=== PATIENT | female | born 1990 | race Caucasian/White ===

== ENCOUNTER 2016-07-14 09:43 | Inpatient (IN) | payer OTHER ==
[2016-07-14] MEDS ORDERED: RINGERS SOLUTION,LACTATED 300 ML IV ONE (18:32)
[2016-07-14 19:09] LABS: APPEARANCE,URINE SLIGHTLY-CLOUDY; BILIRUBIN,URINE NEGATIVE (NEGATIVE); GLUCOSE, URINE NEGATIVE (NEGATIVE); KETONES,URINE TRACE mg/dL (NEGATIVE); LEUKOCYTE ESTERASE,URINE NEGATIVE (NEGATIVE); NITRITE,URINE NEGATIVE (NEGATIVE); PROTEIN,URINE 30 mg/dL (NEGATIVE); URINE SPECIFIC GRAVITY 1.012; UROBILINOGEN,URINE NEGATIVE mg/dL (<2.0)
[2016-07-14 19:23] LABS: ABSOLUTE EOSINOPHILS # (AUTO) 0.1 10^3/uL (0.0-0.6); ABSOLUTE LYMPHOCYTES (AUTO) 3.4 10^3/uL (0.5-4.7); ABSOLUTE MONOCYTES (AUTO) 1.1 10^3/uL (0.1-1.4); BASOPHILS % (AUTO) 0.4 % (0-2); EOSINOPHILS % (AUTO) 0.5 % (0-6); HEMATOCRIT 33.5 % (36.0-47.0); HEMOGLOBIN 11.1 g/dL (12.0-15.5); HGB HCT DIFFERENCE -0.2; MEAN CORPUSCULAR HEMOGLOBIN 26.3 pg (27.0-33.4); MEAN CORPUSCULAR HGB CONC 33.2 g/dL (32.0-36.0); MEAN CORPUSCULAR VOLUME 79 fl (80-97); MONOCYTES % (AUTO) 7.9 % (3-13); RED BLOOD COUNT 4.23 10^6/uL (3.72-5.28); SEGMENTED NEUTROPHILS % (AUTO) 66.2 % (42-78); WHITE BLOOD COUNT 13.6 10^3/uL (4.0-10.5)
[2016-07-14 19:28] LABS: URINE BARBITURATES SCREEN NEGATIVE; URINE METHADONE SCREEN NEGATIVE; URINE OPIATES LOW NEGATIVE; URINE PHENCYCLIDINE SCREEN NEGATIVE
[2016-07-14] MEDS ORDERED: MISOPROSTOL 0.1 MG TABLET ONE ×2 (20:08→21:32)
[2016-07-14] MEDS ORDERED: DINOPROSTONE 10 MG VAGINAL INSERT.SR ONE ×2 (20:08→21:33)
[2016-07-14] MEDS: DINOPROSTONE 10 MG VAGINAL INSERT.SR PV PRN (21:30)
[2016-07-15] MEDS: DINOPROSTONE 10 MG VAGINAL INSERT.SR PV PRN ×2 (00:03→00:04)
[2016-07-15] MEDS: RINGERS SOLUTION,LACTATED 1,000 ML IV PRN ×2 (01:59→02:01)
[2016-07-15] MEDS ORDERED: ZOLPIDEM TARTRATE 5 MG TABLET ONE (03:14)
--- NOTE | 2016-07-15 08:01 | L&D Flow Sheet ---
LD Flowsheet Datetime Report Generated by CPN: 07/15/2016 08:00 Datetime: 07/15/2016 07:55 NBP Sys/Venus/Mean (mmHg): 133 (QS system process) : 76 (QS system process) : 96 (QS system process) Pulse: 103 (QS system process) LaborFlag: Labor (QS system process) Datetime: 07/15/2016 06:57 Monitor Mode: External (Kentrell Augustine RN) Frequency (min): 1.5-2 (Kentrell Fawn, RN) Quality: Mild/Moderate (Kentrell Augustine, RN) Resting Tone (Palpate): Relaxed (Kentrell Augustine, RN) Datetime: 07/15/2016 06:41 I/O Interventions: Up to BR (Kentrell Fawn, RN) Datetime: 07/15/2016 06:30 Monitor Mode: External (Kentrell Augustine, RN) Frequency (min): 2-7.5 (Kentrell Augustine, RN) Quality: Mild/Moderate (Kentrell Augustine, RN) Duration (sec): 60-80 (Kentrell Augustine, RN) Resting Tone (Palpate): Relaxed (Kentrell Fawn, RN) Contraction Comments: Moderate variability (Kentrell Fawn, RN) Datetime: 07/15/2016 06:00 Monitor Mode: External (Kentrell Fawn, RN) Frequency (min): 1.5-3 (Kentrell Fawn, RN) Quality: Mild/Moderate (Kentrell Fawn, RN) Duration (sec): 1.5-3 (Kentrell Fawn, RN) Resting Tone (Palpate): Relaxed (Kentrell Fawn, RN) Datetime: 07/15/2016 05:30 Monitor Mode: External (Kentrell Fawn, RN) Frequency (min): None (Kentrell Fawn, RN) Resting Tone (Palpate): Relaxed (Kentrell Fawn, RN) Datetime: 07/15/2016 05:00 Monitor Mode: External (Kentrell Fawn, RN) Frequency (min): x2 (Kentrell Fawn, RN) Quality: Mild/Moderate (Kentrell Fawn, RN) Resting Tone (Palpate): Relaxed (Kentrell Fawn, RN) Contraction Comments: Irritability noted (Kentrell Fawn, RN) Datetime: 07/15/2016 04:30 Monitor Mode: External (Kentrell Fawn, RN) Frequency (min): 1.5-4 (Kentrell Fawn, RN) Quality: Mild/Moderate (Kentrell Fawn, RN) Duration (sec): 60-90 (Kentrell Fawn, RN) Resting Tone (Palpate): Relaxed (Kentrell Fawn, RN) Datetime: 07/15/2016 04:00 Monitor Mode: External (Kentrell Fawn, RN) Frequency (min): 1-7.5 (Kentrell Fawn, RN) Quality: Mild/Moderate (Kentrell Fawn, RN) Duration (sec): 60-80 (Kentrell Fawn, RN) Resting Tone (Palpate): Relaxed (Kentrell Fawn, RN) Datetime: 07/15/2016 03:30 Monitor Mode: External (Kentrell Augustine, RN) Frequency (min): 1.5 (Kentrell Augustine, RN) Quality: Mild (Kentrell Mijaresford, RN) Duration (sec): 60-80 (Kentrell Mijaresford, RN) Resting Tone (Palpate): Relaxed (Kentrell Augustine, RN) Datetime: 07/15/2016 03:15 I/O Interventions: Up to BR (Kentrell Augustine, RN) Datetime: 07/15/2016 03:14 Analgesics/Sedatives: Ambien (mg) @ 10 (Kentrell Augustine, RN) Datetime: 07/15/2016 03:00 Monitor Mode: External (Kentrell Fawn, RN) Frequency (min): 2-3.5 (Kentrell Fawn, RN) Quality: Mild (Kentrell Fawn, RN) Duration (sec): 70-80 (Kentrell Fawn, RN) Duration Criteria: Less than Two 120 Second Contractions (Kentrell Fawn, RN) Resting Tone (Palpate): Relaxed (Kentrell Fawn, RN) Datetime: 07/15/2016 02:30 Monitor Mode: External (Kentrell Fawn, RN) Frequency (min): 2-4 (Kentrell Fawn, RN) Quality: Mild (Kentrell Fawn, RN) Duration (sec): 40-90 (Kentrell Fawn, RN) Resting Tone (Palpate): Relaxed (Kentrell Fawn, RN) Datetime: 07/15/2016 02:01 IV/Blood Work: IV Infusing per Order; New IV Bag Hung (Kentrell Fawn, RN) Datetime: 07/15/2016 02:00 Monitor Mode: External (Kentrell Fawn, RN) Frequency (min): x2 (Kentrell Fawn, RN) Quality: Mild (Kentrell Fawn, RN) Resting Tone (Palpate): Relaxed (Kentrell Fawn, RN) Contraction Comments: Irritability present (Kentrell Fawn, RN) Datetime: 07/15/2016 01:30 Monitor Mode: External (Kentrell Fawn, RN) Frequency (min): x1 (Kentrell Fawn, RN) Quality: Mild (Kentrell Fawn, RN) Pattern: Normal: <= 5 Contractions in 10 Minutes (Kentrell Fawn, RN) Resting Tone (Palpate): Relaxed (Kentrell Fawn, RN) Datetime: 07/15/2016 01:11 I/O Interventions: Up to BR (Kentrell Fawn, RN) Datetime: 07/15/2016 01:00 Monitor Mode: External (Kentrell Fawn, RN) Frequency (min): Irritability present (Kentrell Fawn, RN) Quality: Mild (Kentrell Fawn, RN) Resting Tone (Palpate): Relaxed (Kentrell Fawn, RN) Datetime: 07/15/2016 00:30 Monitor Mode: External (Kentrell Fawn, RN) Frequency (min): x2 (Kentrell Fawn, RN) Quality: Mild (Kentrell Fawn, RN) Resting Tone (Palpate): Relaxed (Kentrell Fawn, RN) Datetime: 07/15/2016 00:00 Monitor Mode: External (Kentrell Fawn, RN) Frequency (min): x1 (Kentrell Fawn, RN) Quality: Mild (Kentrell Fawn, RN) Resting Tone (Palpate): Relaxed (Kentrell Fawn, RN) Datetime: 07/14/2016 23:30 Monitor Mode: External (Kentrell Fawn, RN) Frequency (min): x1 (Kentrell Fawn, RN) Datetime: 07/14/2016 23:00 Monitor Mode: External (Kentrell Fawn, RN) Frequency (min): None (Kentrell Fawn, RN) Resting Tone (Palpate): Relaxed (Kentrell Fawn, RN) Datetime: 07/14/2016 22:30 Monitor Mode: External (Kentrell Fawn, RN) Monitor Interventions for UA: [place]ott Adjusted (Kentrell Fawn, RN) Frequency (min): None (Kentrell Fawn, RN) Quality: Mild (Kentrell Fawn, RN) Resting Tone (Palpate): Relaxed (Kentrell Fawn, RN) Datetime: 07/14/2016 22:00 Monitor Mode: External; Palpation (Kentrell Fawn, RN) Frequency (min): Unable to determine (Kentrell Fawn, RN) Quality: Mild (Kentrell Fawn, RN) Resting Tone (Palpate): Relaxed (Kentrell Fawn, RN) Datetime: 07/14/2016 21:29 Monitor Mode: External; Palpation (Kentrell Fawn, RN) Frequency (min): x1 (Kentrell Fawn, RN) Quality: Mild (Kentrell Fawn, RN) Pattern: Normal: <= 5 Contractions in 10 Minutes (Kentrell Fawn, RN) Resting Tone (Palpate): Relaxed (Kentrell Fawn, RN) Datetime: 07/14/2016 21:01 Monitor Mode: External (Kentrell Fawn, RN) Frequency (min): x1 (Kentrell Fawn, RN) Quality: Mild (Kentrell Fawn, RN) Resting Tone (Palpate): Relaxed (Kentrell Fawn, RN) Datetime: 07/14/2016 20:30 Cervical Ripening Agents: Cervidil (Josephine Lattibeaudeir, RN) Datetime: 07/14/2016 20:29 Contraction Comments: toco applied (Josephine Lattibeaudeir, RN) Datetime: 07/14/2016 20:25 Dilatation (cm): 1.0 (Josephine Lattibeaudeir, RN) Exam by: C. Eller, CNM (Josephine Lattibeaudeir, RN) Datetime: 07/14/2016 20:19 Procedures: Bedside Ultrasound Done (Josephine Christensen RN) Patient Care Comments: Ultrasound shows no FHTs. (Josephine Christensen RN) Datetime: 07/14/2016 20:08 Communication: Provider at Bedside (Josephine Christensen RN) Provider Notified (Name): Jude Eller CNM at bedside discussing POC and induction options. Pain management options discussed. (Josephine Christensen RN)
[2016-07-15] MEDS ORDERED: PROMETHAZINE HCL INJ 25 MG/1 ML VIAL IV ONE ×2 (08:21→09:00)
[2016-07-15] MEDS ORDERED: NALBUPHINE HCL INJ 10 MG/1 ML AMPULE ONE ×3 (08:21→14:01)
[2016-07-15] MEDS ORDERED: NALBUPHINE HCL INJ 10 MG/1 ML AMPULE INJ ONE ×2 (08:23→09:00)
[2016-07-15] MEDS ORDERED: OXYTOCIN/NORMAL SALINE 20 UNIT/1,000 ML RTUINJ ONE ×2 (09:03→18:55)
[2016-07-15] MEDS ORDERED: ONDANSETRON HCL INJ/PF 4 MG/2 ML SDV ONE (13:41)
[2016-07-15] MEDS ORDERED: FENTANYL CITRATE INJ/PF 100 MCG/2 ML AMPUL ONE ×3 (15:34→17:28)
[2016-07-15] MEDS ORDERED: BUPIVACAINE HCL 0.25 % INJ/PF (2.5 MG/1 ML) 30 ML VIAL ONE (16:18)
[2016-07-15] MEDS ORDERED: EPHEDRINE SULFATE INJ 50 MG/1 ML AMPULE ONE (16:18)
[2016-07-15] MEDS ORDERED: FENTANYL/BUPIVACAINE/NS/PF 200 MCG/100 ML RTUINJ EPI ONE (16:18)
[2016-07-15] MEDS ORDERED: PHENYLEPHRINE HCL INJ/PF 10 MG/1 ML SDV ONE (16:18)
[2016-07-15] MEDS ORDERED: MISOPROSTOL 0.2 MG TABLET ONE (17:25)
[2016-07-15] MEDS ORDERED: LIDOCAINE 1% INJ-PF (10 MG/ML) 30 ML SDV ONE (17:25)
--- NOTE | 2016-07-15 18:02 | L&D General Admission ---
General Admit Datetime Report Generated by CPN: 07/15/2016 18:00 INFORMATION Patient Age: 25 (06/12/2016 15:08:QS system process) EDC: 07/24/2016 00:00 (07/14/2016 18:57:SAW Mclain) : 2 (07/14/2016 18:57:SAW Mclain) Para: 0 (07/14/2016 18:57:SAW Mclain) Term: 0 (07/14/2016 18:57:SAW Mclain) : 0 (07/14/2016 18:57:SAW Mclain) Spontaneous Abortions: 1 (07/14/2016 18:57:SAW Mclain) Induced Abortions: 0 (07/14/2016 18:57:SAW Mclain) Livin (07/14/2016 18:57:SAW Mclain) Cesareans: 0 (07/14/2016 18:57:SAW Mclain) VBACs: 0 (07/14/2016 18:57:SAW Mclain) Ectopic: 0 (07/14/2016 18:57:SAW Mclain) Multiple Births: 0 (07/14/2016 18:57:SAW Mclain) Baby, Number in Womb: 1 (07/14/2016 18:57:SAW Mclain) CARE Primary Welding Pantograph Operator: [facility] (07/14/2016 18:57:SAW Mclain) Adequate Care: Yes (07/14/2016 18:57:SAW Mclain) Prepregnancy Weight (lb): 155 (07/14/2016 18:57:SAW Mclain) Prepregnancy Weight (kg): 70.5 (07/14/2016 18:57:QS system process) Height (in): 68 (07/14/2016 21:01:QS system process) ALLERGIES Medication Allergy: Yes (07/14/2016 18:57:SAW Mclain) Medication Allergies: penicillin G (07/14/2016); latex (07/14/2016) (07/14/2016 18:59:QS system process) Latex Allergy: Latex Allergies (07/14/2016 18:57:Mariah Rodriguez RN) COMMUNICATION Primary Language: Yi (07/14/2016 18:57:SAW Mclain) DEMOGRAPHICS Address: [facility] [place] [address] (07/14/2016 10:39:QS system process) Zipcode: [address] (06/12/2016 15:08:QS system process) Home (06/12/2016 15:08:QS system process) SSN: [id number] (06/12/2016 15:08:QS system process) Next of Kin Name: CHOLO MENA (06/12/2016 15:08:QS system process) Next of Kin (06/12/2016 15:08:QS system process) Next of Kin Relationship: SPO (06/12/2016 15:08:QS system process) Date of : 1990 (06/12/2016 15:08:QS system process) Marital Status: (06/12/2016 15:08:QS system process) Sex: Female (06/12/2016 15:08:QS system process) Race: (06/12/2016 15:08:QS system process) Ethnicity: Non- or (06/12/2016 15:08:QS system process) Yazidism: None (06/12/2016 15:08:QS system process) LABS Blood Type: AB Positive (07/14/2016 18:57:Vero Oh RN) Antibody Screen: negative (07/14/2016 18:57:Vero Oh RN) Hemoglobin: 11.1 L (07/14/2016 19:09:QS system process) Hematocrit: 33.5 L (07/14/2016 19:09:QS system process) MCV: 79 L (07/14/2016 19:09:QS system process) Group Beta Strep: negative (07/14/2016 18:57:Vero Oh RN) Gonorrhea: Negative (07/14/2016 18:57:Vero Oh RN) Chlamydia: Negative (07/14/2016 18:57:Vero Oh RN) RPR/VDRL: Nonreactive (07/14/2016 18:57:Vero Oh RN) HIV Exposure Test: Negative (07/14/2016 18:57:Vero Oh RN) Hepatitis B: Negative (07/14/2016 18:57:Vero Oh RN) Rubella: Immune (07/14/2016 18:57:Vero Oh RN)
--- NOTE | 2016-07-15 18:02 | L&D Current Admission ---
Current Admit Datetime Report Generated by CPN: 07/15/2016 18:00 ADMISSION INFORMATION Chief Complaint: IUFD (07/14/2016 19:30:Kentrell Augustine RN)
--- NOTE | 2016-07-15 18:27 | L&D General Admission ---
General Admit Datetime Report Generated by CPN: 07/15/2016 18:27 INFORMATION Patient Age: 25 (06/12/2016 15:08:QS system process) DEMOGRAPHICS Address: [address] [place] [address] (07/14/2016 10:39:QS system process) Address: [address] [place] [address] (06/12/2016 15:08:QS system process) Zipcode: [address] (06/12/2016 15:08:QS system process) Home (06/12/2016 15:08:QS system process) SSN: [id number] (06/12/2016 15:08:QS system process) Next of Kin Name: CHOLO MENA (06/12/2016 15:08:QS system process) Next of Kin (06/12/2016 15:08:QS system process) Next of Kin Relationship: SPO (06/12/2016 15:08:QS system process) Date of : 1990 (06/12/2016 15:08:QS system process) Marital Status: (06/12/2016 15:08:QS system process) Sex: Female (06/12/2016 15:08:QS system process) Race: (06/12/2016 15:08:QS system process) Ethnicity: Non- or (06/12/2016 15:08:QS system process) Latter Day: None (06/12/2016 15:08:QS system process)
--- NOTE | 2016-07-15 18:28 | L&D Discharge Summary ---
OB Discharge Summary Datetime Report Generated by CPN: 07/15/2016 18:28 DISCHARGE DIAGNOSIS Gestation: 38.5 Number of Babies in Womb: 1 Parity: 0
--- NOTE | 2016-07-15 18:28 | L&D Flow Sheet ---
LD Flowsheet Datetime Report Generated by CPN: 07/15/2016 18:27 Datetime: 07/14/2016 10:50 Communication Additional Nursing Comments: Pt physically left L_D ambulatory in stable condition with at side, with no needs or complaints, and with order to return to L_D when ready and prepared for IOL. (Mariah Michael, RNC) Datetime: 07/14/2016 10:15 Communication Additional Nursing Comments: Pt and informed RN and CNM the desire to go home. Order for d/c home received from J Juarez CNM. (Mariah Michael, RNC) Datetime: 07/14/2016 09:50 Communication Additional Nursing Comments: J Juarez CNM at BS, discussing with pt and options and POC for IOL. Both verbalized understanding and agreement and stated desire to talk it over. (Mariah Michael, RNC) Datetime: 07/14/2016 09:45 Communication Additional Nursing Comments: arrived to L_D. (Mariah Michael, RNC) Datetime: 07/14/2016 09:30 Communication Additional Nursing Comments: Pt arrived to L_D ambulatory with Toma Doll CNM at [facility] [place] for IOL for IUFD. (SAW Mclain)
[2016-07-15] MEDS ORDERED: ACETAMINOPHEN WITH CODEINE #3 TABLET PO PRN ×2 (19:29)
[2016-07-15] MEDS ORDERED: NA PHOS,M-B/NA PHOS,DI-BA (ADULT) 133 ML ENEMA PR PRN (19:29)
[2016-07-15] MEDS ORDERED: OXYTOCIN/NORMAL SALINE 1,000 ML IV PRN (19:29)
[2016-07-15] MEDS ORDERED: DIPH/PERTUSS(ACELL)/TETANUS VAC/PF 0.5 ML SYR (>=10YO) IM PRN (19:29)
[2016-07-15] MEDS ORDERED: ZOLPIDEM TARTRATE 5 MG TABLET PO PRN (19:29)
[2016-07-15] MEDS ORDERED: DIBUCAINE 1% OINTMENT 28 GM TP PRN (19:29)
[2016-07-15] MEDS ORDERED: PROMETHAZINE HCL 25 MG SUPP.RECT PR PRN (19:29)
[2016-07-15] MEDS ORDERED: GLYCERIN/WITCH HAZEL LEAF 1 EACH MED..PAD TP PRN (19:29)
[2016-07-15] MEDS ORDERED: ACETAMINOPHEN 650 MG SUPP.RECT PR PRN (19:29)
[2016-07-15] MEDS ORDERED: PROMETHAZINE HCL 25 MG TABLET PO PRN (19:29)
[2016-07-15] MEDS ORDERED: BENZOCAINE/MENTHOL AEROSOL SPRAY 56 ML TOP PRN (19:29)
[2016-07-15] MEDS ORDERED: PROMETHAZINE HCL INJ 25 MG/1 ML VIAL IV PRN (19:29)
[2016-07-15] MEDS ORDERED: DIPHENHYDRAMINE HCL 25 MG CAPSULE PO PRN (19:29)
[2016-07-15] MEDS ORDERED: MAGNESIUM HYDROXIDE SUSP 30 ML UDCUP PO PRN (19:29)
[2016-07-15] MEDS ORDERED: MEASLES,MUMPS&RUBELLA VACC/PF 0.5 ML VIAL SUBCUT PRN (19:29)
[2016-07-15] MEDS ORDERED: PSEUDOEPHEDRINE HCL 30 MG TABLET PO PRN (19:29)
[2016-07-15 20:00] LABS: ABSOLUTE NEUT (AUTO) 17.5 10^3/uL (1.7-8.2); BASOPHILS % (AUTO) 0.1 % (0-2); HEMATOCRIT 34.4 % (36.0-47.0); HEMOGLOBIN 11.4 g/dL (12.0-15.5); HGB HCT DIFFERENCE -0.2; LYMPHOCYTES % (AUTO) 5.1 % (13-45); MEAN CORPUSCULAR HEMOGLOBIN 26.3 pg (27.0-33.4); MEAN CORPUSCULAR HGB CONC 33.1 g/dL (32.0-36.0); MEAN CORPUSCULAR VOLUME 80 fl (80-97); MONOCYTES % (AUTO) 5.2 % (3-13); RED BLOOD COUNT 4.32 10^6/uL (3.72-5.28); RED CELL DISTRIBUTION WIDTH 15.9 % (11.5-14.0); SEGMENTED NEUTROPHILS % (AUTO) 89.6 % (42-78); WHITE BLOOD COUNT 19.5 10^3/uL (4.0-10.5)
--- NOTE | 2016-07-15 20:01 | L&D Flow Sheet ---
LD Flowsheet Datetime Report Generated by CPN: 07/15/2016 20:00 Datetime: 07/15/2016 19:01 Communication Comments: Now I lay me down to sleep contacted (Yessica Onel, RN) Datetime: 07/15/2016 18:22 Communication Comments: placenta (Yessica Onel, RN) Datetime: 07/15/2016 18:15 Stage of : Labor (Sofi Sherman RN) Monitor Mode: External (Sofi Sherman RN) Monitor Interventions for UA: Aspen Adjusted (Sofi Sherman RN) Frequency (min): 1-2 (Sofi Sherman RN) Quality: Moderate to Strong (Sofi Sherman RN) Duration (sec): 55-70 (Sofi Sherman RN) Resting Tone (Palpate): Relaxed (Sofi Sherman RN) Communication: RN at Bedside; RN Reviewed Strip; Provider at Bedside (Sofi Sherman RN) Communication Comments: delivery (Yessica Sykes RN) Datetime: 07/15/2016 18:04 Temperature (F): 99.3 (Yessica Sykes RN) Temperature (C): 37.4 (QS system process) LaborFlag: Labor (QS system process) Datetime: 07/15/2016 18:00 Stage of : Labor (Sofi Sherman RN) Monitor Mode: External (Sofi Sherman RN) Monitor Interventions for UA: Aspen Adjusted (Sofi Sherman RN) Frequency (min): 1-2 (Sofi Sherman, RN) Quality: Moderate to Strong (Sofi Sherman, LUIS ALBERTO) Duration (sec): 55-70 (Sofi Sherman, LUIS ALBERTO) Resting Tone (Palpate): Relaxed (Sofi Sherman, LUIS ALBERTO) Pushing: Coached on Pushing; Urge to Push (Yessica Sykes RN) Pushing Position: Pushing with Contractions; Pushing Lithotomy (Yessica Sykes RN) Pushing Progress: Descent with Pushing; Presenting Part Visible (Yessica Sykes RN) Communication: RN at Bedside; RN Reviewed Strip; Provider at Bedside (Sofi Sherman RN) Datetime: 07/15/2016 17:56 Pushing: Coached on Pushing; Urge to Push (Yessica Sykes RN) Pushing Position: Pushing with Contractions (Yessica Sykes RN) Pushing Progress: Descent with Pushing (Yessica Sykes RN) Datetime: 07/15/2016 17:55 Dilatation (cm): 10.0 (Yessica Sykes RN) Effacement (%): 100 (Yessica Sykes RN) Station: 1 (Yessica Sykes RN) Exam by: CSunni Eller, CNThiago (Yessica Sykes RN) Datetime: 07/15/2016 17:50 Membranes Ruptured Date/Time: 07/15/2016 17:50 (Yessica Sykes RN) Membranes Rupture Method: Spontaneous (Yessica Sykes RN) Amniotic Fluid Color: Bloody (Yessica Sykes RN) Amniotic Fluid Amount: Moderate (Yessica Sykes RN) Amniotic Fluid Odor: Foul (Yessica Sykes RN) Datetime: 07/15/2016 17:45 Stage of : Labor (Sofi Sherman RN) Monitor Mode: External (Sofi Sherman RN) Frequency (min): 1-1.5 (Sofi Sherman RN) Quality: Moderate to Strong (Sofi Sherman RN) Duration (sec): 55-65 (Sofi Sherman RN) Communication: RN at Bedside; RN Reviewed Strip; Provider at Bedside (Sofi Sherman RN) Datetime: 07/15/2016 17:40 Pitocin (milliunit): Pitocin Decreased to (milliunits) @ 4 (Yessica Sykes RN) Datetime: 07/15/2016 17:30 Monitor Mode: External (Sofi Sherman RN) Monitor Mode: External; Palpation (Yessica Sykes RN) Frequency (min): 1-1.5 (Sofi Sherman RN) Frequency (min): 1-2 (Yessica Sykes RN) Quality: Moderate to Strong (Sofi Sherman RN) Quality: Moderate (Yessica Sykes RN) Duration (sec): 55-65 (Sofi Sherman RN) Duration (sec): 60-70 (Yessica Sykes RN) Duration Criteria: Less than Two 120 Second Contractions (Yessica Sykes RN) Resting Tone (Palpate): Relaxed (Sofi Sherman RN) Resting Tone (Palpate): Relaxed (Yessica Sykes RN) Pitocin (milliunit): Pitocin Remains (milliunits) @ (Annotations: 5) (Yessica Sykes RN) Datetime: 07/15/2016 17:29 NBP Sys/Venus/Mean (mmHg): 132 (QS system process) : 69 (QS system process) : 96 (QS system process) Pulse: 82 (QS system process) LaborFlag: Labor (QS system process) Datetime: 07/15/2016 17:28 Analgesics/Sedatives: Fentanyl (mcg) @ 100 (Yessica Sykes RN) Datetime: 07/15/2016 17:26 Communication Comments: order received for Fentanyl 100 mcg IV x1 now (Yessica Onel, RN) Datetime: 07/15/2016 17:25 Dilatation (cm): 8.0 (Yessica Onel, RN) Effacement (%): 100 (Yessica Onel, RN) Station: 0 (Yessica Onel, RN) Exam by: C. Eller, CNM (Yessica Onel, RN) Datetime: 07/15/2016 17:20 Pitocin (milliunit): Pitocin Decreased to (milliunits) @ 5 (Yessica Sykes RN) Datetime: 07/15/2016 17:15 Stage of : Labor (Sofi Sherman RN) NBP Sys/Venus/Mean (mmHg): 128 (QS system process) : 73 (QS system process) : 94 (QS system process) Pulse: 84 (QS system process) Monitor Mode: External (Sofi Sherman RN) Monitor Mode: External; Palpation (Yessica Sykes RN) Frequency (min): 1-1.5 (Sofi Sherman RN) Frequency (min): 1-1.5 (Yessica Sykes RN) Quality: Moderate to Strong (Sofi Sherman RN) Quality: Moderate (Yessica Sykes RN) Duration (sec): 50-100 (Sofi Sherman RN) Duration (sec): 50-80 (Yessica Sykes RN) Duration Criteria: Less than Two 120 Second Contractions (Yessica Sykes RN) Resting Tone (Palpate): Relaxed (Sofi Sherman RN) Resting Tone (Palpate): Relaxed (Yessica Sykes RN) Pitocin (milliunit): Pitocin Decreased to (milliunits) @ 6 (Yessica Sykes RN) Medication Comments: per CNM request (Yessica Sykes RN) Communication: RN at Bedside; RN Reviewed Strip (Sofi Sherman RN) Communication Comments: RN continuously at bedside with OSVALDO Thakur and Lavelle Doll CNM (Yessica Sykes RN) LaborFlag: Labor (QS system process) Datetime: 07/15/2016 17:08 Pitocin (milliunit): Pitocin Decreased to (milliunits) @ (Annotations: 8) (Yessica Sykes, RN) Datetime: 07/15/2016 17:00 Monitor Mode: External; Palpation (Yessica Sykes, RN) Frequency (min): 1-1.5 (Yessica Sykes, RN) Quality: Moderate (Yessica Sykes, RN) Duration (sec): 60-70 (Yessica Sykes, LUIS ALBERTO) Duration Criteria: Less than Two 120 Second Contractions (Yessica Sykes, RN) Resting Tone (Palpate): Relaxed (Yessica Sykes, RN) Datetime: 07/15/2016 16:59 NBP Sys/Venus/Mean (mmHg): 123 (QS system process) : 68 (QS system process) : 91 (QS system process) Pulse: 90 (QS system process) LaborFlag: Labor (QS system process) Datetime: 07/15/2016 16:51 Communication Comments: order received from Jude Eller CNM to restart pitocin 20 milliunits in 1 L NS at 10 milliunits/min, increase by 2 milliunits/min every 30 minutes until a max of 20 millunits/min or until adequate labor is reached (Yessica Sykes RN) Datetime: 07/15/2016 16:49 Pitocin (milliunit): Pitocin Started (milliunits) @ 10 (Yessica Sykes RN) I/O Interventions: Rasmussen Cath Inserted (Yessica Sykes RN) Datetime: 07/15/2016 16:45 Contraction Comments: toco removed per patient, RN attempting to put back on (Yessica Sykes RN) Dilatation (cm): 5.0 (Yessica Sykes RN) Effacement (%): 100 (Yessica Sykes RN) Station: 0 (Yessica Sykes RN) Exam by: Jude Eller CNThiago (Yessica Sykes RN) Datetime: 07/15/2016 16:35 NBP Sys/Venus/Mean (mmHg): 128 (QS system process) : 70 (QS system process) : 90 (QS system process) Pulse: 85 (QS system process) LaborFlag: Labor (QS system process) Datetime: 07/15/2016 16:31 Epidural Procedure Other: Pump Started (Yessica Sykes RN) Datetime: 07/15/2016 16:30 Pulse: 89 (QS system process) SpO2 (%): 97 (QS system process) Contraction Comments: unable to dermine contraction pattern due to patient sitting for epidural (Yessica Sykes RN) LaborFlag: Labor (QS system process) Datetime: 07/15/2016 16:29 NBP Sys/Venus/Mean (mmHg): 123 (QS system process) : 71 (QS system process) : 93 (QS system process) Pulse: 85 (QS system process) Epidural Procedure: Cath Placed; Loading Dose (Yessica Sykes RN) LaborFlag: Labor (QS system process) Datetime: 07/15/2016 16:28 Pulse: 68 (QS system process) SpO2 (%): 90 (QS system process) Epidural Procedure: Test Dose (Yessica Sykes, RN) LaborFlag: Labor (QS system process) Datetime: 07/15/2016 16:25 Pulse: 82 (QS system process) SpO2 (%): 100 (QS system process) LaborFlag: Labor (QS system process) Datetime: 07/15/2016 16:21 Communication Comments: Dr. [place] aware of lack of LR bolus (Yessica Sykes, RN) Datetime: 07/15/2016 16:20 Pulse: 83 (QS system process) SpO2 (%): 100 (QS system process) Pitocin (milliunit): Pitocin Discontinued (Yessica Sykes RN) Communication Comments: Pitocin discontinued per Dr. Siddiqi (Yessica Sykes RN) Communication Comments: Dr. Siddiqi at bedside, states she will attempt epidural (Yessica Sykes RN) LaborFlag: Labor (QS system process) Datetime: 07/15/2016 16:15 Monitor Mode: External; Palpation (Yessica Sykes RN) Frequency (min): 1.-2 (Yessica Sykes RN) Quality: Moderate (Yessica Sykes RN) Duration (sec): 50-70 (Yessica Sykes RN) Duration Criteria: Less than Two 120 Second Contractions (Yessica Sykes RN) Resting Tone (Palpate): Relaxed (Yessica Sykes RN) Datetime: 07/15/2016 16:00 Monitor Mode: External; Palpation (Yessica Sykes, RN) Frequency (min): 1.5-2.5 (Yessica Sykes, RN) Quality: Moderate (Yessica Sykes, RN) Duration (sec): 50-60 (Yessica Sykes, RN) Duration Criteria: Less than Two 120 Second Contractions (Yessica Sykes, RN) Resting Tone (Palpate): Relaxed (Yessica Sykes, RN) Datetime: 07/15/2016 15:59 Communication Comments: anesthesia notified of patient's request for anesthesia consult, Dr. Siddiqi en route to L_D (Yessica Sykes, RN) Datetime: 07/15/2016 15:45 Monitor Mode: External (Yessica Sykes, RN) Frequency (min): 1-1.5 (Yessica Sykes, RN) Quality: Mild (Yessica Sykes, RN) Duration (sec): 50-70 (Yessica Sykes, RN) Duration Criteria: Less than Two 120 Second Contractions (Yessica Sykes, RN) Resting Tone (Palpate): Relaxed (Yessica Sykes, RN) Datetime: 07/15/2016 15:38 Analgesics/Sedatives: Fentanyl (mcg) @ 100 (Yessica Sykes, RN) Datetime: 07/15/2016 15:37 Pitocin (milliunit): Pitocin Decreased to (milliunits) @ (Annotations: 15) (Yessica Sykes, RN) Datetime: 07/15/2016 15:32 Communication Comments: Jude Eller CNM notified of patient's cervical exam, patient c/o pain 4/5 with contractions, abdomen relaxed during contractions. order received to turn Pitocin back to 15 milliunits/min, give Fentanyl 100 mcg IV x1 now (Yessica Sykes RN) Datetime: 07/15/2016 15:30 Monitor Mode: External (Yessica Sykes RN) Frequency (min): 1-1.5 (Yessica Sykes RN) Quality: Moderate (Yessica Sykes RN) Duration (sec): 60-70 (Yessica Sykes RN) Duration Criteria: Less than Two 120 Second Contractions (Yessica Sykes RN) Dilatation (cm): 3.0 (Yessica Sykes RN) Effacement (%): 90 (Yessica Sykes RN) Station: 0 (Yessica Sykes RN) Exam by: Vaishnavi Sykes RN (Yessica Sykes RN) Cervix, Consistency: Soft (Yessica Sykes RN) Cervix, Position: Midposition (Yessica Sykes RN) Datetime: 07/15/2016 15:29 Communication Comments: Dr. Onel reviewing strip (Yessica Sykes, RN) Datetime: 07/15/2016 15:15 Monitor Mode: External (Yessica Sykes, RN) Frequency (min): 1.5 (Yessica Sykes, RN) Quality: Mild/Moderate (Yessica Onel, RN) Duration (sec): 60-70 (Yessica Sykes, RN) Duration Criteria: Less than Two 120 Second Contractions (Yessica Onel, RN) Datetime: 07/15/2016 15:11 Pain Coping: Breathing Through Contractions (Yessica Sykes, RN) Comfort Measures: Breathing/Relaxation; Family Support (Yessica Sykes, RN) Datetime: 07/15/2016 15:00 Monitor Mode: External; Palpation (Yessica Sykes, RN) Frequency (min): 1-2 (Yessicanixon Sykes, RN) Frequency (min): 1-1.5 (Yessica Onel, RN) Quality: Mild/Moderate (Yessicanixon Sykes, RN) Duration (sec): 50-70 (Yessicanixon Sykes, RN) Duration (sec): 60-70 (Yessica Onel, RN) Duration Criteria: Less than Two 120 Second Contractions (Yessica Sykes, RN) Resting Tone (Palpate): Relaxed (Yessica Sykes, RN) Pitocin (milliunit): Pitocin Increased to (milliunits) @ 16 (Yessica Sykes, RN) Datetime: 07/15/2016 14:47 I/O Interventions: Up to BR (Yessica Sykes, RN) Datetime: 07/15/2016 14:45 Monitor Mode: External; Palpation (Yessica Sykes, RN) Resting Tone (Palpate): Relaxed (Yessica Onel, RN) Contraction Comments: unable to determine contraction pattern due to patient movement, RN at bedside adjusting monitor (Yessica Sykes RN) Datetime: 07/15/2016 14:30 Monitor Mode: External; Palpation (Yessica Sykes RN) Frequency (min): 2-3 (Yessica Sykes RN) Quality: Mild/Moderate (Yessica Sykes RN) Duration (sec): 40-50 (Yessica Sykes RN) Duration Criteria: Less than Two 120 Second Contractions (Yessica Sykes RN) Pattern: Normal: <= 5 Contractions in 10 Minutes (Yessica Sykes RN) Resting Tone (Palpate): Relaxed (Yessica Sykes RN) Pitocin (milliunit): Pitocin Remains (milliunits) @ (Annotations: 14) (Yessica Sykes RN) Datetime: 07/15/2016 14:25 Pain Assessment Comments: patient resting peacefully, patient's mother at bedside (Yessica Sykes RN) LaborFlag: Labor (QS system process) Datetime: 07/15/2016 14:15 Monitor Mode: External (Yessica Sykes, RN) Frequency (min): 1.5-3 (Yessica Sykes, RN) Quality: Mild/Moderate (Yessica Sykes, RN) Duration (sec): 40-50 (Yessica Sykes, RN) Duration Criteria: Less than Two 120 Second Contractions (Yessica Sykes, RN) Pattern: Normal: <= 5 Contractions in 10 Minutes (Yessica Sykes, RN) Pitocin (milliunit): Pitocin Remains (milliunits) @ (Annotations: 14 ) (Yessica Sykes, RN) Datetime: 07/15/2016 14:09 Patient Position/Activity: Left Lateral (Yessica Sykes, RN) Datetime: 07/15/2016 14:05 Analgesics/Sedatives: Nubain (mg) @ 10 (Yessica Sykes, RN) Datetime: 07/15/2016 14:01 Monitor Mode: External (Yessica Onel, RN) Frequency (min): 1-2 (Yessica Onel, RN) Quality: Mild/Moderate (Yessica Onel, RN) Duration (sec): 60-70 (Yessica Onel, RN) Duration Criteria: Less than Two 120 Second Contractions (Yessica Onel, RN) Pattern: Normal: <= 5 Contractions in 10 Minutes (Yessica Onel, RN) Datetime: 07/15/2016 14:00 Pitocin (milliunit): Pitocin Remains (milliunits) @ (Annotations: 14) (Yessica Sykes, RN) Datetime: 07/15/2016 13:45 Monitor Mode: External; Palpation (Yessica Sykes, LUIS ALBERTO) Frequency (min): 1.5-2 (Yessica Sykes, RN) Quality: Mild/Moderate (Yessica Sykes, RN) Duration (sec): 60-70 (Yessica Sykes, RN) Duration Criteria: Less than Two 120 Second Contractions (Yessica Sykes, RN) Pattern: Normal: <= 5 Contractions in 10 Minutes (Yessica Sykes, RN) Resting Tone (Palpate): Relaxed (Yessica Sykes, RN) Pitocin (milliunit): Pitocin Remains (milliunits) @ (Annotations: 14) (Yessica Sykes, RN) Datetime: 07/15/2016 13:30 Monitor Mode: External; Palpation (Yessica Sykes, RN) Frequency (min): 1.5-2 (Yessica Sykes, RN) Quality: Mild/Moderate (Yessica Sykes, RN) Duration (sec): 60-70 (Yessica Sykes, RN) Duration Criteria: Less than Two 120 Second Contractions (Yessica Sykes, RN) Pattern: Normal: <= 5 Contractions in 10 Minutes (Yessica Sykes, RN) Resting Tone (Palpate): Relaxed (Yessica Sykes, RN) Pitocin (milliunit): Pitocin Remains (milliunits) @ (Annotations: 14) (Yessica Sykes RN) Communication Comments: patient questioning whether Pitocin can be turned off, patient educated that she must have contractions in order to deliver. Patient states she will continue Pitocin but asks we not increase titration for a short while. Jude Eller CNM aware, no new orders received (Yessica Sykes RN) Datetime: 07/15/2016 13:17 Analgesics/Sedatives: Nubain (mg) @ 10 (Yessica Sykes RN) Datetime: 07/15/2016 13:15 Monitor Mode: External; Palpation (Yessica Sykes RN) Frequency (min): 1.5-2 (Yessica Sykes RN) Quality: Mild/Moderate (Yessica Sykes RN) Duration (sec): 40-60 (Yessica Sykes RN) Duration Criteria: Less than Two 120 Second Contractions (Yessica Sykes RN) Pattern: Normal: <= 5 Contractions in 10 Minutes (Yessica Sykes RN) Resting Tone (Palpate): Relaxed (Yessica Sykes RN) Pitocin (milliunit): Pitocin Increased to (milliunits) @ (Annotations: 14 ) (Yessica Sykes RN) Datetime: 07/15/2016 13:13 Pain Scale: 3 (Yessica Sykes RN) Pain Location: Abdomen (Yessica Sykes RN) Pain Coping: Breathing Through Contractions (Yessica Sykes RN) Comfort Measures: Family Support (Yessica Sykes RN) LaborFlag: Labor (QS system process) Datetime: 07/15/2016 13:00 Monitor Mode: External; Palpation (Yessica Sykes RN) Frequency (min): 1-2.5 (Yessica Sykes RN) Quality: Mild/Moderate (Yessica Sykes RN) Duration (sec): 50-60 (Yessica Sykes RN) Duration Criteria: Less than Two 120 Second Contractions (Yessica Sykes RN) Pattern: Normal: <= 5 Contractions in 10 Minutes (Yessica Sykes RN) Resting Tone (Palpate): Relaxed (Yessica Sykes RN) Pitocin (milliunit): Pitocin Remains (milliunits) @ (Annotations: 12) (Yessica Sykes RN) Datetime: 07/15/2016 12:58 Communication Comments: call placed to Jude Eller CNM to clarify order of Nubain 20 mg IV, provider states give Nubain 10 mg IV x1 now then wait 30mins-1hr and give Nubain 10 mg IV x1 again (Yessica Sykes RN) Datetime: 07/15/2016 12:45 Monitor Mode: External (Yessica Sykes RN) Frequency (min): 1-6 (Yessica Sykes RN) Quality: Mild/Moderate (Yessica Sykes RN) Duration (sec): 40-60 (Yessica Sykes RN) Duration Criteria: Less than Two 120 Second Contractions (Yessica Sykes RN) Pattern: Normal: <= 5 Contractions in 10 Minutes (Yessica Sykes RN) Pitocin (milliunit): Pitocin Remains (milliunits) @ (Annotations: 12) (Yessica Sykes RN) Datetime: 07/15/2016 12:43 Communication Comments: Lavelle Mendiola at patient's bedside assessing patient. Order received for patient to have Nubain 20 mg IV x1 PRN for pain (Yessica Sykes, LUIS ALBERTO) Datetime: 07/15/2016 12:30 Monitor Mode: External; Palpation (Yessica Sykes, LUIS ALBERTO) Frequency (min): 1-3.5 (Yessica Sykes, RN) Quality: Mild/Moderate (Yessica Sykes, RN) Duration (sec): 40-60 (Yessica Sykes, RN) Duration Criteria: Less than Two 120 Second Contractions (Yessica Sykes, RN) Pattern: Normal: <= 5 Contractions in 10 Minutes (Yessica Sykes RN) Resting Tone (Palpate): Relaxed (Yessica Sykes, RN) Pitocin (milliunit): Pitocin Increased to (milliunits) @ 12 (Yessica Sykes, RN) Datetime: 07/15/2016 12:15 Monitor Mode: External (Yessica Sykes, RN) Frequency (min): 1-1.5 (Yessica Sykes, RN) Quality: Mild/Moderate (Yessica Onel, RN) Duration (sec): 40-60 (Yessica Onel, RN) Duration Criteria: Less than Two 120 Second Contractions (Yessica Onel, RN) Pattern: Normal: <= 5 Contractions in 10 Minutes (Yessica Sykes, RN) Pitocin (milliunit): Pitocin Remains (milliunits) @ (Annotations: 10 ) (Yessica Sykes, RN) Datetime: 07/15/2016 12:00 Monitor Mode: External; Palpation (Yessica Sykes, RN) Frequency (min): 1-1.5 (Yessica Sykes, RN) Quality: Mild/Moderate (Yessica Onel, RN) Duration (sec): 50-60 (Yessica Onel, RN) Duration Criteria: Less than Two 120 Second Contractions (Yessica Onel, RN) Resting Tone (Palpate): Relaxed (Yessica Sykes, RN) Pitocin (milliunit): Pitocin Increased to (milliunits) @ (Annotations: 10) (Yessica Sykes, RN) Datetime: 07/15/2016 11:59 Patient Position/Activity: Semi-Fowlers (Yessica Sykes RN) Datetime: 07/15/2016 11:54 I/O Interventions: Up to BR (Yessica Sykes RN) Datetime: 07/15/2016 11:49 NBP Sys/Venus/Mean (mmHg): 118 (QS system process) : 58 (QS system process) : 84 (QS system process) Pulse: 89 (QS system process) Pain Scale: 2 (Yessica Sykes RN) Pain Goal: 1 (Yessica Sykes RN) Pain Relief Measures: Comfort Measures (Yessica Sykes RN) Comfort Measures: Hot/Cold Pack; Family Support (Yessica Sykes RN) LaborFlag: Labor (QS system process) Datetime: 07/15/2016 11:48 Temperature (F): 98.0 (Yessica Sykes, RN) Temperature (C): 36.7 (QS system process) LaborFlag: Labor (QS system process) Datetime: 07/15/2016 11:47 Monitor Interventions for UA: Aspen Adjusted (Yessica Sykes, RN) Datetime: 07/15/2016 11:45 Monitor Mode: External; Palpation (Yessica Sykes RN) Frequency (min): 2-3 (Yessica Sykes RN) Quality: Mild/Moderate (Yessica Onel, RN) Duration (sec): 40-70 (Yessica Onel, RN) Duration Criteria: Less than Two 120 Second Contractions (Yessica Sykes, RN) Pattern: Normal: <= 5 Contractions in 10 Minutes (Yessica Sykes, RN) Resting Tone (Palpate): Relaxed (Yessica Sykes, RN) Pitocin (milliunit): Pitocin Remains (milliunits) @ (Annotations: 8) (Yessica Sykes, RN) Datetime: 07/15/2016 11:30 Monitor Mode: External (Yessica Sykes, RN) Frequency (min): 2-4 (Yessica Sykes, RN) Quality: Mild/Moderate (Yessica Onel, RN) Duration (sec): 40-60 (Yessica Onel, RN) Duration Criteria: Less than Two 120 Second Contractions (Yessica Onel, RN) Pattern: Normal: <= 5 Contractions in 10 Minutes (Yessica Onel, RN) Contraction Comments: irritability (Yessica Sykes, RN) Pitocin (milliunit): Pitocin Increased to (milliunits) @ (Annotations: 8) (Yessica Sykes, RN) Datetime: 07/15/2016 11:28 Communication Comments: order received for patient to eat lunch from Jatinder Lockwood CNM (Yessica Sykes RN) Datetime: 07/15/2016 11:15 Monitor Mode: External (Yessica Sykes RN) Frequency (min): 2-4 (Yessica Sykes RN) Quality: Mild/Moderate (Yessica Sykes RN) Duration (sec): 60 (Yessica Sykes RN) Duration Criteria: Less than Two 120 Second Contractions (Yessica Sykes RN) Pattern: Normal: <= 5 Contractions in 10 Minutes (Yessica Sykes RN) Pitocin (milliunit): Pitocin Remains (milliunits) @ (Annotations: 6) (Yessica Sykes RN) Datetime: 07/15/2016 11:00 Monitor Mode: External; Palpation (Yessica Sykes RN) Monitor Interventions for UA: Aspen Adjusted (Yessica Sykes RN) Frequency (min): 2-4 (Yessica Sykes RN) Quality: Mild/Moderate (Yessica Sykes RN) Duration (sec): 40-50 (Yessica Onel, RN) Duration Criteria: Less than Two 120 Second Contractions (Yessica Sykes, RN) Pattern: Normal: <= 5 Contractions in 10 Minutes (Yessica ySkes, RN) Resting Tone (Palpate): Relaxed (Yessica Sykes, RN) Contraction Comments: irritability (Yessica Sykes, RN) Pitocin (milliunit): Pitocin Remains (milliunits) @ (Annotations: 6) (Yessica Sykes, RN) Datetime: 07/15/2016 10:45 Monitor Mode: External (Yessica Sykes, RN) Frequency (min): 1-3 (Yessica Sykes, RN) Quality: Mild/Moderate (Yessica Sykes, RN) Duration (sec): 40-50 (Yessica Sykes, RN) Duration Criteria: Less than Two 120 Second Contractions (Yessica Sykes, RN) Pattern: Normal: <= 5 Contractions in 10 Minutes (Yessica Sykes, RN) Contraction Comments: irritability (Yessica Sykes, RN) Pitocin (milliunit): Pitocin Increased to (milliunits) @ (Annotations: 6) (Yessica Sykes, RN) Datetime: 07/15/2016 10:30 Monitor Mode: External (Yessica Sykes, RN) Frequency (min): 1.5-3.5 (Yessica Sykes, RN) Quality: Mild/Moderate (Yessica Sykes, RN) Duration (sec): 40-60 (Yessica Sykes, RN) Duration Criteria: Less than Two 120 Second Contractions (Yessica Sykes, RN) Pattern: Normal: <= 5 Contractions in 10 Minutes (Yessica Sykes, RN) Pitocin (milliunit): Pitocin Remains (milliunits) @ (Annotations: 4) (Yessica Sykes, RN) Datetime: 07/15/2016 10:15 Monitor Mode: External; Palpation (Yessica Sykes, RN) Frequency (min): 1-3 (Yessica Sykes, RN) Quality: Mild/Moderate (Yessica Sykes, RN) Duration (sec): 40-60 (Yessica Sykes, RN) Duration Criteria: Less than Two 120 Second Contractions (Yessica Sykes, RN) Pattern: Normal: <= 5 Contractions in 10 Minutes (Yessica Sykes, RN) Resting Tone (Palpate): Relaxed (Yessica Sykes, RN) Contraction Comments: irritability (Yessica Sykes, RN) Pitocin (milliunit): Pitocin Remains (milliunits) @ (Annotations: 4) (Yessica Sykes, RN) Datetime: 07/15/2016 10:00 Monitor Mode: External; Palpation (Yessica Sykes, RN) Frequency (min): 1-4 (Yessica Sykes, RN) Quality: Mild/Moderate (Yessica Sykes, RN) Duration Criteria: Less than Two 120 Second Contractions (Yessica Sykes, RN) Pattern: Normal: <= 5 Contractions in 10 Minutes (Yessica Sykes, RN) Resting Tone (Palpate): Relaxed (Yessica Sykes, RN) Contraction Comments: irritability (Yessica Sykes, RN) Pitocin (milliunit): Pitocin Increased to (milliunits) @ 4 (Yessica Sykes, RN) Datetime: 07/15/2016 09:45 Monitor Mode: External; Palpation (Yessica Sykes, RN) Frequency (min): 1-2.5 (Yessica Sykes, RN) Quality: Mild/Moderate (Yessica Sykes, RN) Duration (sec): 40-60 (Yessica Onel, RN) Duration Criteria: Less than Two 120 Second Contractions (Yessica Sykes, RN) Pattern: Normal: <= 5 Contractions in 10 Minutes (Yessica Sykes, RN) Resting Tone (Palpate): Relaxed (Yessica Sykes, RN) Pitocin (milliunit): Pitocin Remains (milliunits) @ (Annotations: 2) (Yessica Sykes, RN) Datetime: 07/15/2016 09:30 Monitor Mode: External; Palpation (Yessica Sykes RN) Frequency (min): 1-5 (Yessica Sykes RN) Quality: Mild/Moderate (Yessica Sykes RN) Duration (sec): 40-50 (Yessica Sykes RN) Duration Criteria: Less than Two 120 Second Contractions (Yessica Sykes RN) Pattern: Normal: <= 5 Contractions in 10 Minutes (Yessica Sykes RN) Resting Tone (Palpate): Relaxed (Yessica Sykes RN) Contraction Comments: irritability (Yessica Sykes RN) Pitocin (milliunit): Pitocin Remains (milliunits) @ (Annotations: 2) (Yessica Sykes RN) Datetime: 07/15/2016 09:18 Pain Assessment Comments: patient resting peacefully, patient's mother at bedside (Yessica Sykes RN) LaborFlag: Labor (QS system process) Datetime: 07/15/2016 09:15 Pitocin (milliunit): Pitocin Started (milliunits) @ 2 (Yessica Onel, RN) Datetime: 07/15/2016 09:00 Monitor Mode: External; Palpation (Yessica Sykes, RN) Frequency (min): 1.5-3 (Yessica Onel, RN) Frequency (min): 1. (Yessica Onel, RN) Quality: Mild/Moderate (Yessica Onel, RN) Duration (sec): 40-60 (Yessica Sykes, RN) Duration Criteria: Less than Two 120 Second Contractions (Yessica Onel, RN) Pattern: Normal: <= 5 Contractions in 10 Minutes (Yessica Onel, RN) Resting Tone (Palpate): Relaxed (Yessica Onle, RN) Datetime: 07/15/2016 08:54 Communication Comments: orders received to start Pitocin at 2 milliunits/min, increase by 2 milliunits/min every 30 minutes until a max of 20 milliunits/min or until adequate labor is reached (Yessica Sykes RN) Datetime: 07/15/2016 08:47 Analgesics/Sedatives: Nubain (mg) @ 10 (Yessica Sykes RN) Antiemetics/Antacids: Phenergan IV (mg) @ 25 (Yessica Sykes RN) Datetime: 07/15/2016 08:30 Monitor Mode: External; Palpation (Yessica Sykes RN) Quality: Mild/Moderate (Yessica Sykes RN) Duration Criteria: Less than Two 120 Second Contractions (Yessica Sykes RN) Pattern: Normal: <= 5 Contractions in 10 Minutes (Yessica Sykes RN) Resting Tone (Palpate): Relaxed (Yessica Sykes RN) Contraction Comments: irritability (Yessica Sykes RN) Patient Position/Activity: Low Fowlers (Yessica Sykes RN) Datetime: 07/15/2016 08:27 I/O Interventions: Up to BR (Yessica Sykes, RN) Datetime: 07/15/2016 08:11 Temperature (F): 98.9 (Yessica Sykes RN) Temperature (C): 37.2 (QS system process) LaborFlag: Labor (QS system process) Datetime: 07/15/2016 08:00 Monitor Mode: External; Palpation (Yessica Sykes RN) Quality: Mild/Moderate (Yessica Sykes RN) Duration Criteria: Less than Two 120 Second Contractions (Yessica Sykes RN) Pattern: Normal: <= 5 Contractions in 10 Minutes (Yessica Sykes RN) Resting Tone (Palpate): Relaxed (Yessica Sykes RN) Contraction Comments: irritability (Yessica Sykes RN) Communication Comments: pharmacy notified of lack of Phenergan in pyxis (Yessica Sykes RN) Datetime: 07/15/2016 07:55 Communication Comments: orders received for Nubain 10 mg IV x1 now, Phenergan 25 mg IV x1 now (Yessica Sykes RN) LaborFlag: Labor (QS system process) Datetime: 07/15/2016 07:47 Dilatation (cm): 2.0 (Yessica Sykes RN) Effacement (%): 70 (Yessica Sykes RN) Station: -2 (Yessica Sykes RN) Exam by: Jude Eller CNM (Yessica Sykes RN) Vaginal Bleeding: None (Yessica Sykes RN) Cervix, Consistency: Soft (Yessica Sykes RN) Cervix, Position: Midposition (Yessica Sykes RN) Datetime: 07/15/2016 07:46 Communication Comments: C. Eller, CNM at bedside discussing POC (Yessica Onel, RN) Datetime: 07/15/2016 07:45 Level of Consciousness: Fully Conscious (Yessica Sykes, RN) DTR's/Clonus: DTRs 2+; No Clonus (Yessica Onel, RN) Headache: Denies (Yessica Onel, RN) Breath Sounds, Left: Clear and Equal (Yessica Sykes, RN) Breath Sounds, Right: Clear and Equal (Yessicanixon Sykes, RN) Nausea/Vomiting: Denies (Yessica Onel, RN) RUQ Epigastric Pain: Denies (Yessica Onel, RN) Datetime: 07/15/2016 07:30 Monitor Mode: External; Palpation (Yessica Sykes, RN) Quality: Mild/Moderate (Yessica Sykes, RN) Duration Criteria: Less than Two 120 Second Contractions (Yessica Sykes, RN) Pattern: Normal: <= 5 Contractions in 10 Minutes (Yessica Sykes, RN) Resting Tone (Palpate): Relaxed (Yessica Sykes, RN) Contraction Comments: irritability (Yessica Sykes, RN) Datetime: 07/15/2016 07:20 Communication Comments: report received from S. Lattibeaudeir, RN (Yessica Sykes, RN) Datetime: 07/14/2016 19:36 LaborFlag: Labor (QS system process) Datetime: 07/14/2016 19:30 LaborFlag: Labor (QS system process) Datetime: 07/14/2016 18:57 Membranes Rupture Method: Spontaneous (Yessica Sykes RN) Amniotic Fluid Color: Bloody (Yessica Sykes RN) Amniotic Fluid Amount: Moderate (Yessica Sykes RN) Amniotic Fluid Odor: Foul (Yessica Sykes RN)
[2016-07-15] MEDS ORDERED: IBUPROFEN 800 MG TABLET PO SCH (22:00)
[2016-07-15] MEDS ORDERED: FAMOTIDINE 20 MG TABLET PO SCH (22:00)
[2016-07-15] MEDS ORDERED: ACETAMINOPHEN WITH CODEINE #3 TABLET ONE (23:12)
[2016-07-15 23:15] LABS: PERCENT FETAL RBCs 6.72 %; TOTAL RBC COUNT 2038
[2016-07-15 23:17] LABS: TYPE IN FILE? TYPE IN FILE
[2016-07-16] MEDS ORDERED: OXYCODONE-ACETAMINOPHEN 5-325 MG TABLET ONE (00:26)
[2016-07-16 07:20] LABS: MEAN CORPUSCULAR VOLUME 79 fl (80-97)
[2016-07-16 07:25] LABS: HEMATOCRIT 30.9 % (36.0-47.0); HEMOGLOBIN 10.4 g/dL (12.0-15.5); HGB HCT DIFFERENCE 0.3; MEAN CORPUSCULAR HEMOGLOBIN 26.3 pg (27.0-33.4); MEAN CORPUSCULAR HGB CONC 33.6 g/dL (32.0-36.0); RED BLOOD COUNT 3.94 10^6/uL (3.72-5.28); RED CELL DISTRIBUTION WIDTH 15.9 % (11.5-14.0); WHITE BLOOD COUNT 20.5 10^3/uL (4.0-10.5)
--- NOTE | 2016-07-16 08:01 | L&D Flow Sheet ---
LD Flowsheet Datetime Report Generated by CPN: 07/16/2016 08:00 Datetime: 07/16/2016 07:38 Level of Consciousness: Fully Conscious (Yessica Sykes, RN) DTR's/Clonus: DTRs 2+; No Clonus (Yessica Sykes, RN) Headache: Denies (Yessica Sykes, RN) Breath Sounds, Left: Clear and Equal (Yessica Sykes, RN) Breath Sounds, Right: Clear and Equal (Yessica Sykes, RN) Nausea/Vomiting: Denies (Yessica Sykes, RN) RUQ Epigastric Pain: Denies (Yessica Sykes, RN) Datetime: 07/16/2016 07:15 Communication Comments: report received from Vaishnavi Augustine, RN (Yessica Sykes, RN) Datetime: 07/16/2016 01:10 Stage of : Recovery (Josephine Lattibeaudeir, RN) Datetime: 07/15/2016 23:20 Pain Scale: 2 (Josephine Lattibeaudeir, RN) Pain Presence: Constant (Josephine Lattibeaudeir, RN) Pain Type: Cramping (Josephine Lattibeaudeir, RN) Pain Location: Abdomen; Perineum (Josephine Lattibeaudeir, RN) Datetime: 07/15/2016 23:00 Stage of : Recovery (Josephine Christensen RN)
[2016-07-16] MEDS ORDERED: ACETAMINOPHEN WITH CODEINE #3 TABLET ONE (09:23)
--- NOTE | 2016-07-16 09:23 | PDOC PROGRESS REPORT ---
Subjective-OB Subjective: Post Delivery Day: 1 25 year old. Denies any needs at this time, pt coping and grieving appropriately, lochia stable, pain well controlled, voiding without difficulty. Physical Exam (OB) Vital Signs: Intake & Output 07/15/16 07/16/16 07/17/16 06:59 06:59 06:59 Weight 90.45 kg - Episiotomy/Laceration Site Condition: N/A - Lochia Lochia Amount: Small 10-25 ml Lochia Color: Rubra/Red Objective-Diagnostic Laboratory: 07/16/16 06:52 07/15/16 07/16/16 19:30 06:52 WBC 19.5 H 20.5 H RBC 4.32 3.94 Hgb 11.4 L 10.4 L Hct 34.4 L 30.9 L MCV 80 79 L MCH 26.3 L 26.3 L MCHC 33.1 33.6 RDW 15.9 H 15.9 H Plt Count 231 205 Seg Neutrophils % 89.6 H Lymphocytes % 5.1 L Monocytes % 5.2 Eosinophils % 0.0 Basophils % 0.1 Absolute Neutrophils 17.5 H Absolute Lymphocytes 1.0 Absolute Monocytes 1.0 Absolute Eosinophils 0.0 Absolute Basophils 0.0 Assessment and Plan(PN) - Assessment and Plan (1) Intrauterine in , delivered Is this a current diagnosis for this admission?: YesPlan: support provided to family Meds reviewed with family and pt pt to f/u at [facility] week (2) Vaginal delivery Is this a current diagnosis for this admission?: YesPlan: routine pp care dc home - Time Spent with Patient Time with patient: Less than 15 minutes Critical Time spent with patient: Less than 15 minutes Medications reviewed and adjusted accordingly: Yes - Disposition Anticipated Discharge: Home Within: within 24 hours
--- NOTE | 2016-07-16 09:26 | PDOC DISCHARGE SUMMARY ---
Final Diagnosis Discharge Date: 07/16/16 - Final Diagnosis (1) Intrauterine in , delivered Is this a current diagnosis for this admission?: Yes (2) Vaginal delivery Is this a current diagnosis for this admission?: Yes Discharge Data - Discharge Medication Home Medications: Prenat Vit Comb.10/Iron/FA/Dha [Vitafol-Ob+Dha Combo Pack] 1 tab PO DAILY Valacyclovir HCl [Valtrex 500 mg Tablet] 1 tab PO DAILY 07/14/16 Citalopram Hydrobromide [Celexa 20 mg Tablet] 10 mg PO DAILY #30 tablet Docusate Sodium [Colace 100 mg Capsule] 100 mg PO BID #30 capsule 07/16/16 Eszopiclone [Lunesta] 2 mg PO QHS #30 tablet 07/16/16 Ibuprofen [Motrin 800 mg Tablet] 800 mg PO Q8 #60 tablet 07/16/16 Lorazepam [Ativan 0.5 mg Tablet] 0.5 mg PO Q4 PRN #30 tab 07/16/16 Zolpidem Tartrate [Ambien 5 mg Tablet] 5 mg PO HSP PRN #10 tablet 07/16/16 Gestational Age: 38.3 Reason(s) for Admission: Stillborn Procedures: NST Intrapartum Procedure(s): Spontaneous Vaginal Delivery - Mason Data Baby 1 Male at 1 minute: 0 at 10 minutes: 0 Weight: 3.487 kg Home with Mother: No Complications: Yes - iufd discovered in the office 07/14/16 - Diagnosis Test Laboratory: 07/14/16 07/14/16 07/15/16 18:40 19:09 19:30 RBC 4.23 4.32 Hgb 11.1 L 11.4 L Hct 33.5 L 34.4 L Urine Opiates Screen NEGATIVE 07/16/16 06:52 RBC 3.94 Hgb 10.4 L Hct 30.9 L Urine Opiates Screen - Discharge information/Instructions Discharge Activity: Balance Activity w/Rest, Pelvic Rest, No tub bath Discharge Diet: Regular Disposition: HOME, SELF-CARE Follow up with: [facility] in: 1, Weeks - or sooner prn
[2016-07-16] MEDS ORDERED: FERROUS SULFATE 325 MG TABLET PO SCH (10:00)
[2016-07-16] MEDS ORDERED: PRENATAL VITAMIN W-O CA NO5/FE FUMARATE/FA CAPSULE PO SCH (10:00)
[2016-07-16] MEDS ORDERED: DOCUSATE SODIUM 100 MG CAPSULE PO SCH (10:00)
[2016-07-16] MEDS ORDERED: SENNOSIDES/DOCUSATE 8.6-50 MG 1 EACH TABLET PO SCH (10:00)
[2016-07-16] MEDS ORDERED: CITALOPRAM HYDROBROMIDE 20 MG TABLET PO SCH (10:00)
[2016-07-16 10:21] VITALS: BP 110/65
--- NOTE | 2016-07-16 16:46 | L&D Flow Sheet ---
LD Flowsheet Datetime Report Generated by CPN: 07/16/2016 16:45 Datetime: 07/16/2016 13:59 NBP Sys/Venus/Mean (mmHg): 141 (QS system process) : 76 (QS system process) : 98 (QS system process) Pulse: 103 (QS system process) Datetime: 07/16/2016 09:42 Temperature (F): 98.4 (Yessica Sykes RN) Temperature (C): 36.9 (QS system process) Temperature Route: Axillary (Yessica Onel, RN) Datetime: 07/16/2016 07:38 Level of Consciousness: Fully Conscious (Yessica Sykes, RN) DTR's/Clonus: DTRs 2+; No Clonus (Yessica Sykes, RN) Headache: Denies (Yessica Sykes, RN) Breath Sounds, Left: Clear and Equal (Yessica Sykes, RN) Breath Sounds, Right: Clear and Equal (Yessica Sykes, RN) Nausea/Vomiting: Denies (Yessica Sykes, RN) RUQ Epigastric Pain: Denies (Yessica Onel, RN) Datetime: 07/16/2016 07:15 Communication Comments: report received from Vaishnavi MijaresFawn, RN (Yessica Onel, RN) Datetime: 07/15/2016 18:04 Temperature (C): 37.4 (QS system process) LaborFlag: Labor (QS system process) Datetime: 07/15/2016 17:29 LaborFlag: Labor (QS system process) Datetime: 07/15/2016 17:15 LaborFlag: Labor (QS system process) Datetime: 07/15/2016 16:59 LaborFlag: Labor (QS system process) Datetime: 07/15/2016 16:35 LaborFlag: Labor (QS system process) Datetime: 07/15/2016 16:30 LaborFlag: Labor (QS system process) Datetime: 07/15/2016 16:29 LaborFlag: Labor (QS system process) Datetime: 07/15/2016 16:28 LaborFlag: Labor (QS system process) Datetime: 07/15/2016 16:25 LaborFlag: Labor (QS system process) Datetime: 07/15/2016 16:20 LaborFlag: Labor (QS system process) Datetime: 07/15/2016 14:25 LaborFlag: Labor (QS system process) Datetime: 07/15/2016 13:13 LaborFlag: Labor (QS system process) Datetime: 07/15/2016 11:49 LaborFlag: Labor (QS system process) Datetime: 07/15/2016 11:48 Temperature (C): 36.7 (QS system process) LaborFlag: Labor (QS system process) Datetime: 07/15/2016 09:18 LaborFlag: Labor (QS system process) Datetime: 07/15/2016 08:11 Temperature (C): 37.2 (QS system process) LaborFlag: Labor (QS system process) Datetime: 07/15/2016 07:55 LaborFlag: Labor (QS system process)
--- NOTE | 2016-07-16 16:46 | L&D Discharge Summary ---
OB Discharge Summary Datetime Report Generated by CPN: 07/16/2016 16:45 DISCHARGE DIAGNOSIS Gestation: 38.5 Number of Babies in Womb: 1 Parity: 0
--- NOTE | 2016-07-16 16:46 | L&D General Admission ---
General Admit Datetime Report Generated by CPN: 07/16/2016 16:45 INFORMATION Patient Age: 25 (06/12/2016 15:08:QS system process) EDC: 07/24/2016 00:00 (07/14/2016 18:57:SAW Mclain) : 2 (07/14/2016 18:57:SAW Mclain) Para: 0 (07/14/2016 18:57:SAW Mclain) Term: 0 (07/14/2016 18:57:SAW Mclain) : 0 (07/14/2016 18:57:SAW Mclain) Spontaneous Abortions: 1 (07/14/2016 18:57:SAW Mclain) Induced Abortions: 0 (07/14/2016 18:57:SAW Mclain) Livin (07/14/2016 18:57:SAW Mclain) Cesareans: 0 (07/14/2016 18:57:SAW Mclain) VBACs: 0 (07/14/2016:57:SAW Mclain) Ectopic: 0 (07/14/2016 18:57:SAW Mclain) Multiple Births: 0 (07/14/2016 18:57:SAW Mclain) Baby, Number in Womb: 1 (07/14/2016 18:57:SAW Mclain) CARE Primary Hoist Worker: [facility] (07/14/2016 18:57:SAW Mclain) Adequate Care: Yes (07/14/2016 18:57:SAW Mclain) Prepregnancy Weight (lb): 155 (07/14/2016 18:57:SAW Mclain) Prepregnancy Weight (kg): 70.5 (07/14/2016 18:57:QS system process) Height (in): 68 (07/16/2016 09:26:QS system process) Height (in): 68 (07/16/2016 08:48:QS system process) Height (in): 68 (07/14/2016 21:01:QS system process) Height (in): 68 (07/14/2016 18:59:QS system process) ALLERGIES Medication Allergy: Yes (07/14/2016 18:57:SAW Mclain) Medication Allergies: penicillin G (07/14/2016); latex (07/14/2016) (07/14/2016 18:59:QS system process) Latex Allergy: Latex Allergies (07/14/2016 18:57:SAW Mclain) COMMUNICATION Primary Language: Urdu (07/14/2016 18:57:SAW Mclain) DEMOGRAPHICS Address: [address] [place] [address] (07/14/2016 10:39:QS system process) Address: [address] [place] [address] (06/12/2016 15:08:QS system process) Zipcode: [address] (06/12/2016 15:08:QS system process) Home (06/12/2016 15:08:QS system process) SSN: [id number] (06/12/2016 15:08:QS system process) Next of Kin Name: CHOLO ELIZALDE (06/12/2016 15:08:QS system process) Next of Kin (06/12/2016 15:08:QS system process) Next of Kin Relationship: SPO (06/12/2016 15:08:QS system process) Date of : 1990 (06/12/2016 15:08:QS system process) Marital Status: (06/12/2016 15:08:QS system process) Sex: Female (06/12/2016 15:08:QS system process) Race: (06/12/2016 15:08:QS system process) Ethnicity: Non- or (06/12/2016 15:08:QS system process) Taoist: None (06/12/2016 15:08:QS system process) FOB Involved: Yes (07/14/2016 18:57:Josephine Christensen RN) Father of Baby Name: Cholo Elizalde (07/14/2016 18:57:Josephine Christensen RN) LABS Blood Type: AB Positive (07/14/2016 18:57:Vero Oh RN) Antibody Screen: negative (07/14/2016 18:57:Vero Oh RN) Hemoglobin: 10.4 L (07/16/2016 06:52:QS system process) Hemoglobin: 11.4 L (07/15/2016 19:30:QS system process) Hemoglobin: 11.1 L (07/14/2016 19:09:QS system process) Hematocrit: 30.9 L (07/16/2016 06:52:QS system process) Hematocrit: 34.4 L (07/15/2016 19:30:QS system process) Hematocrit: 33.5 L (07/14/2016 19:09:QS system process) MCV: 79 L (07/16/2016 06:52:QS system process) MCV: 80 (07/15/2016 19:30:QS system process) MCV: 79 L (07/14/2016 19:09:QS system process) Group Beta Strep: negative (07/14/2016 18:57:Vero Oh RN) Gonorrhea: Negative (07/14/2016 18:57:Vero Oh RN) Chlamydia: Negative (07/14/2016 18:57:Vero Oh RN) RPR/VDRL: Nonreactive (07/14/2016 18:57:Vero Oh, RN) HIV Exposure Test: Negative (07/14/2016 18:57:Vero Oh, RN) Hepatitis B: Negative (07/14/2016 18:57:Vero Oh RN) Rubella: Immune (07/14/2016 18:57:Vero Oh, RN)
--- NOTE | 2016-07-16 16:46 | L&D Current Admission ---
Current Admit Datetime Report Generated by CPN: 07/16/2016 16:45 ADMISSION INFORMATION Chief Complaint: IUFD (07/14/2016 19:30:Kentrell Augustine RN)
--- NOTE | 2016-07-16 22:46 | L&D Discharge Summary ---
OB Discharge Summary Datetime Report Generated by CPN: 07/16/2016 22:45 DISCHARGE DIAGNOSIS Gestation: 38.5 Number of Babies in Womb: 1 Parity: 0
--- NOTE | 2016-07-16 22:46 | L&D General Admission ---
General Admit Datetime Report Generated by CPN: 07/16/2016 22:45 INFORMATION Patient Age: 25 (06/12/2016 15:08:QS system process) EDC: 07/24/2016 00:00 (07/14/2016 18:57:SAW Mclain) : 2 (07/14/2016 18:57:SAW Mclain) Para: 0 (07/14/2016 18:57:SAW Mclain) Term: 0 (07/14/2016 18:57:SAW Mclain) : 0 (07/14/2016 18:57:SAW Mclain) Spontaneous Abortions: 1 (07/14/2016 18:57:SAW Mclain) Induced Abortions: 0 (07/14/2016 18:57:SAW Mclain) Livin (07/14/2016 18:57:SAW Mclain) Cesareans: 0 (07/14/2016 18:57:SAW Mclain) VBACs: 0 (07/14/2016:57:SAW Mclain) Ectopic: 0 (07/14/2016 18:57:SAW Mclain) Multiple Births: 0 (07/14/2016 18:57:SAW Mclain) Baby, Number in Womb: 1 (07/14/2016 18:57:SAW Mclain) CARE Primary Overhead Irrigator: [facility] (07/14/2016 18:57:SAW Mclain) Adequate Care: Yes (07/14/2016 18:57:SAW Mclain) Prepregnancy Weight (lb): 155 (07/14/2016 18:57:SAW Mclain) Prepregnancy Weight (kg): 70.5 (07/14/2016 18:57:QS system process) Height (in): 68 (07/16/2016 09:26:QS system process) Height (in): 68 (07/16/2016 08:48:QS system process) Height (in): 68 (07/14/2016 21:01:QS system process) Height (in): 68 (07/14/2016 18:59:QS system process) ALLERGIES Medication Allergy: Yes (07/14/2016 18:57:SAW Mclain) Medication Allergies: penicillin G (07/14/2016); latex (07/14/2016) (07/14/2016 18:59:QS system process) Latex Allergy: Latex Allergies (07/14/2016 18:57:SAW Mclain) COMMUNICATION Primary Language: Lao (07/14/2016 18:57:SAW Mclain) DEMOGRAPHICS Address: [address] [place] [address] (07/14/2016 10:39:QS system process) Address: [address] [place] [address] (06/12/2016 15:08:QS system process) Zipcode: [address] (06/12/2016 15:08:QS system process) Home (06/12/2016 15:08:QS system process) SSN: [id number] (06/12/2016 15:08:QS system process) Next of Kin Name: CHOLO ELIZALDE (06/12/2016 15:08:QS system process) Next of Kin (06/12/2016 15:08:QS system process) Next of Kin Relationship: SPO (06/12/2016 15:08:QS system process) Date of : 1990 (06/12/2016 15:08:QS system process) Marital Status: (06/12/2016 15:08:QS system process) Sex: Female (06/12/2016 15:08:QS system process) Race: (06/12/2016 15:08:QS system process) Ethnicity: Non- or (06/12/2016 15:08:QS system process) Judaism: None (06/12/2016 15:08:QS system process) FOB Involved: Yes (07/14/2016 18:57:Josephine Christensen RN) Father of Baby Name: Cholo Elizalde (07/14/2016 18:57:Josephine Christensen RN) LABS Blood Type: AB Positive (07/14/2016 18:57:Vero Oh RN) Antibody Screen: negative (07/14/2016 18:57:Vero Oh RN) Hemoglobin: 10.4 L (07/16/2016 06:52:QS system process) Hemoglobin: 11.4 L (07/15/2016 19:30:QS system process) Hemoglobin: 11.1 L (07/14/2016 19:09:QS system process) Hematocrit: 30.9 L (07/16/2016 06:52:QS system process) Hematocrit: 34.4 L (07/15/2016 19:30:QS system process) Hematocrit: 33.5 L (07/14/2016 19:09:QS system process) MCV: 79 L (07/16/2016 06:52:QS system process) MCV: 80 (07/15/2016 19:30:QS system process) MCV: 79 L (07/14/2016 19:09:QS system process) Group Beta Strep: negative (07/14/2016 18:57:Vero Oh RN) Gonorrhea: Negative (07/14/2016 18:57:Vero Oh RN) Chlamydia: Negative (07/14/2016 18:57:Vero Oh RN) RPR/VDRL: Nonreactive (07/14/2016 18:57:Vero Oh, RN) HIV Exposure Test: Negative (07/14/2016 18:57:Vero Oh, RN) Hepatitis B: Negative (07/14/2016 18:57:Vero Oh RN) Rubella: Immune (07/14/2016 18:57:Vero Oh, RN)
--- NOTE | 2016-07-16 22:46 | L&D Current Admission ---
Current Admit Datetime Report Generated by CPN: 07/16/2016 22:45 ADMISSION INFORMATION Chief Complaint: IUFD (07/14/2016 19:30:Kentrell Augustine RN)
--- NOTE | 2016-07-16 22:46 | L&D Flow Sheet ---
LD Flowsheet Datetime Report Generated by CPN: 07/16/2016 22:45 Datetime: 07/16/2016 13:59 NBP Sys/Venus/Mean (mmHg): 141 (QS system process) : 76 (QS system process) : 98 (QS system process) Pulse: 103 (QS system process) Datetime: 07/16/2016 09:42 Temperature (C): 36.9 (QS system process) Datetime: 07/15/2016 18:04 Temperature (C): 37.4 (QS system process) LaborFlag: Labor (QS system process) Datetime: 07/15/2016 17:29 LaborFlag: Labor (QS system process) Datetime: 07/15/2016 17:15 LaborFlag: Labor (QS system process) Datetime: 07/15/2016 16:59 LaborFlag: Labor (QS system process) Datetime: 07/15/2016 16:35 LaborFlag: Labor (QS system process) Datetime: 07/15/2016 16:30 LaborFlag: Labor (QS system process) Datetime: 07/15/2016 16:29 LaborFlag: Labor (QS system process) Datetime: 07/15/2016 16:28 LaborFlag: Labor (QS system process) Datetime: 07/15/2016 16:25 LaborFlag: Labor (QS system process) Datetime: 07/15/2016 16:20 LaborFlag: Labor (QS system process) Datetime: 07/15/2016 14:25 LaborFlag: Labor (QS system process) Datetime: 07/15/2016 13:13 LaborFlag: Labor (QS system process) Datetime: 07/15/2016 11:49 LaborFlag: Labor (QS system process) Datetime: 07/15/2016 11:48 Temperature (C): 36.7 (QS system process) LaborFlag: Labor (QS system process) Datetime: 07/15/2016 09:18 LaborFlag: Labor (QS system process) Datetime: 07/15/2016 08:11 Temperature (C): 37.2 (QS system process) LaborFlag: Labor (QS system process) Datetime: 07/15/2016 07:55 LaborFlag: Labor (QS system process)
--- NOTE | 2016-07-17 04:46 | L&D Discharge Summary ---
OB Discharge Summary Datetime Report Generated by CPN: 07/17/2016 04:45 DISCHARGE DIAGNOSIS Gestation: 38.5 Number of Babies in Womb: 1 Parity: 0
--- NOTE | 2016-07-17 04:46 | L&D Current Admission ---
Current Admit Datetime Report Generated by CPN: 07/17/2016 04:45 ADMISSION INFORMATION Chief Complaint: IUFD (07/14/2016 19:30:Kentrell Augustine RN)
--- NOTE | 2016-07-17 04:46 | L&D General Admission ---
General Admit Datetime Report Generated by CPN: 07/17/2016 04:45 INFORMATION Patient Age: 25 (06/12/2016 15:08:QS system process) EDC: 07/24/2016 00:00 (07/14/2016 18:57:SAW Mclain) : 2 (07/14/2016 18:57:SAW Mclain) Para: 0 (07/14/2016 18:57:SAW Mclain) Term: 0 (07/14/2016 18:57:SAW Mclain) : 0 (07/14/2016 18:57:SAW Mclain) Spontaneous Abortions: 1 (07/14/2016 18:57:SAW Mclain) Induced Abortions: 0 (07/14/2016 18:57:SAW Mclain) Livin (07/14/2016 18:57:SAW Mclain) Cesareans: 0 (07/14/2016 18:57:SAW Mclain) VBACs: 0 (07/14/2016 18:57:SAW Mclain) Ectopic: 0 (07/14/2016 18:57:SAW Mclain) Multiple Births: 0 (07/14/2016 18:57:SAW Mclain) Baby, Number in Womb: 1 (07/14/2016 18:57:SAW Mclain) CARE Primary Theatrical Rigger: [facility] (07/14/2016 18:57:SAW Mclain) Adequate Care: Yes (07/14/2016 18:57:SAW Mclain) Prepregnancy Weight (lb): 155 (07/14/2016 18:57:SAW Mclain) Prepregnancy Weight (kg): 70.5 (07/14/2016 18:57:QS system process) Height (in): 68 (07/16/2016 09:26:QS system process) Height (in): 68 (07/16/2016 08:48:QS system process) Height (in): 68 (07/14/2016 21:01:QS system process) Height (in): 68 (07/14/2016 18:59:QS system process) ALLERGIES Medication Allergy: Yes (07/14/2016 18:57:SAW Mclain) Medication Allergies: penicillin G (07/14/2016); latex (07/14/2016) (07/14/2016 18:59:QS system process) Latex Allergy: Latex Allergies (07/14/2016 18:57:SAW Mclain) COMMUNICATION Primary Language: Maltese (07/14/2016 18:57:SAW Mclain) DEMOGRAPHICS Address: [address] [place] [address] (07/14/2016 10:39:QS system process) Address: [place] [address] (06/12/2016 15:08:QS system process) Zipcode: [address] (06/12/2016 15:08:QS system process) Home (06/12/2016 15:08:QS system process) SSN: [id number] (06/12/2016 15:08:QS system process) Next of Kin Name: CHOLO ELIZALDE (06/12/2016 15:08:QS system process) Next of Kin (06/12/2016 15:08:QS system process) Next of Kin Relationship: SPO (06/12/2016 15:08:QS system process) Date of : 1990 (06/12/2016 15:08:QS system process) Marital Status: (06/12/2016 15:08:QS system process) Sex: Female (06/12/2016 15:08:QS system process) Race: (06/12/2016 15:08:QS system process) Ethnicity: Non- or (06/12/2016 15:08:QS system process) Judaism: None (06/12/2016 15:08:QS system process) FOB Involved: Yes (07/14/2016 18:57:Josephine Christensen RN) Father of Baby Name: Cholo Elizalde (07/14/2016 18:57:Josephine Christensen RN) LABS Blood Type: AB Positive (07/14/2016 18:57:Vero Oh RN) Antibody Screen: negative (07/14/2016 18:57:Vero Oh RN) Hemoglobin: 10.4 L (07/16/2016 06:52:QS system process) Hemoglobin: 11.4 L (07/15/2016 19:30:QS system process) Hemoglobin: 11.1 L (07/14/2016 19:09:QS system process) Hematocrit: 30.9 L (07/16/2016 06:52:QS system process) Hematocrit: 34.4 L (07/15/2016 19:30:QS system process) Hematocrit: 33.5 L (07/14/2016 19:09:QS system process) MCV: 79 L (07/16/2016 06:52:QS system process) MCV: 80 (07/15/2016 19:30:QS system process) MCV: 79 L (07/14/2016 19:09:QS system process) Group Beta Strep: negative (07/14/2016 18:57:Vero Oh RN) Gonorrhea: Negative (07/14/2016 18:57:Vero Oh RN) Chlamydia: Negative (07/14/2016 18:57:Vero Oh RN) RPR/VDRL: Nonreactive (07/14/2016 18:57:Vero Oh, RN) HIV Exposure Test: Negative (07/14/2016 18:57:Vero Oh, RN) Hepatitis B: Negative (07/14/2016 18:57:Vero Oh RN) Rubella: Immune (07/14/2016 18:57:Vero Oh, RN)
--- NOTE | 2016-07-17 04:46 | L&D Admission Assessment ---
LD ADM ASMT Datetime Report Generated by CPN: 07/17/2016 04:45 Assessment Type: Ongoing Assessment (07/16/2016 07:38:Yessica Sykes RN) Assessment Type: Ongoing Assessment (07/15/2016 07:45:Yessica Sykes RN) Weight (lb): 7 (07/16/2016 09:26:QS system process) Weight (lb): 198 (07/16/2016 08:48:QS system process) Weight (kg): 3.2 (07/16/2016 09:26:QS system process) Weight (kg): 90.0 (07/16/2016 08:48:QS system process) Total Wt Gain (lb): -148 (07/16/2016 09:26:QS system process) Total Wt Gain (lb): 43 (07/16/2016 08:48:QS system process) Wt Gain (kg): -67.5 (07/16/2016 09:26:QS system process) Wt Gain (kg): 19.5 (07/16/2016 08:48:QS system process) BMI: 1.1 (07/16/2016 09:26:QS system process) BMI: 30.1 (07/16/2016 08:48:QS system process) Pain Scale: 2 (07/15/2016 23:20:Josephine Christensen RN) Pain Scale: 3 (07/15/2016 13:13:Yessica Sykes RN) Pain Scale: 2 (07/15/2016 11:49:Yessica Sykes RN) Pain Presence: Constant (07/15/2016 23:20:Josephine Christensen RN) Pain Type: Cramping (07/15/2016 23:20:Josephine Christensen RN) Pain Location: Abdomen; Perineum (07/15/2016 23:20:Josephine Christensen RN) Pain Location: Abdomen (07/15/2016 13:13:Yessica Sykes RN) Pain Goal: 1 (07/15/2016 11:49:Yessica Sykes RN) Pain Comments: patient resting peacefully, patient's mother at bedside (07/15/2016 14:25:Yessica Sykes RN) Pain Comments: patient resting peacefully, patient's mother at bedside (07/15/2016 09:18:Yessica Sykes RN) Frequency (min): 1-2 (07/15/2016 18:15:Sofi Sherman RN) Frequency (min): 1-2 (07/15/2016 18:00:Sofi Sherman RN) Frequency (min): 1-1.5 (07/15/2016 17:45:Sofi Sherman RN) Frequency (min): 1-1.5 (07/15/2016 17:30:Sofi Sherman RN) Frequency (min): 1-2 (07/15/2016 17:30:Yessica Sykes RN) Frequency (min): 1-1.5 (07/15/2016 17:15:Sofi Sherman RN) Frequency (min): 1-1.5 (07/15/2016 17:15:Yessica Sykes RN) Frequency (min): 1-1.5 (07/15/2016 17:00:Yessica Sykes RN) Frequency (min): 1.-2 (07/15/2016 16:15:Yessica Sykes RN) Frequency (min): 1.5-2.5 (07/15/2016 16:00:Yessica Sykes RN) Frequency (min): 1-1.5 (07/15/2016 15:45:Yessica Sykes RN) Frequency (min): 1-1.5 (07/15/2016 15:30:Yessica Sykes RN) Frequency (min): 1.5 (07/15/2016 15:15:Yessica Sykes RN) Frequency (min): 1-2 (07/15/2016 15:00:Yessica Onel, RN) Frequency (min): 1-1.5 (07/15/2016 15:00:Yessica Onel, RN) Frequency (min): 2-3 (07/15/2016 14:30:Yessica Onel, RN) Frequency (min): 1.5-3 (07/15/2016 14:15:Yessica Onel, RN) Frequency (min): 1-2 (07/15/2016 14:01:Yessica Onel, RN) Frequency (min): 1.5-2 (07/15/2016 13:45:Yessica Onel, RN) Frequency (min): 1.5-2 (07/15/2016 13:30:Yessica Onel, RN) Frequency (min): 1.5-2 (07/15/2016 13:15:Yessica Onel, RN) Frequency (min): 1-2.5 (07/15/2016 13:00:Yessica Onel, RN) Frequency (min): 1-6 (07/15/2016 12:45:Yessica Onel, RN) Frequency (min): 1-3.5 (07/15/2016 12:30:Yessica Onel, RN) Frequency (min): 1-1.5 (07/15/2016 12:15:Yessica Onel, RN) Frequency (min): 1-1.5 (07/15/2016 12:00:Yessica Onel, RN) Frequency (min): 2-3 (07/15/2016 11:45:Yessica Onel, RN) Frequency (min): 2-4 (07/15/2016 11:30:Yessica Onel, RN) Frequency (min): 2-4 (07/15/2016 11:15:Yessica Onel, RN) Frequency (min): 2-4 (07/15/2016 11:00:Yessica Onel, RN) Frequency (min): 1-3 (07/15/2016 10:45:Yessica Onel, RN) Frequency (min): 1.5-3.5 (07/15/2016 10:30:Yessica Onel, RN) Frequency (min): 1-3 (07/15/2016 10:15:Yessica Onel, RN) Frequency (min): 1-4 (07/15/2016 10:00:Yessica Sykes RN) Frequency (min): 1-2.5 (07/15/2016 09:45:Yessica Sykes RN) Frequency (min): 1-5 (07/15/2016 09:30:Yessica Sykes RN) Frequency (min): 1.5-3 (07/15/2016 09:00:Yesisca Sykes RN) Frequency (min): 1. (07/15/2016 09:00:Yessica Sykes RN) Frequency (min): 1.5-2 (07/15/2016 06:57:Kentrell Augustine RN) Frequency (min): 2-7.5 (07/15/2016 06:30:Kentrell Augustine RN) Frequency (min): 1.5-3 (07/15/2016 06:00:Kentrell Augustine RN) Frequency (min): None (07/15/2016 05:30:Kentrell Augustine RN) Frequency (min): x2 (07/15/2016 05:00:Kentrell Augustine RN) Duration (sec): 55-70 (07/15/2016 18:15:Sofi Sherman RN) Duration (sec): 55-70 (07/15/2016 18:00:Sofi Sherman RN) Duration (sec): 55-65 (07/15/2016 17:45:Sofi Sherman RN) Duration (sec): 55-65 (07/15/2016 17:30:Sofi Sherman RN) Duration (sec): 60-70 (07/15/2016 17:30:Yessica Sykes RN) Duration (sec): 50-100 (07/15/2016 17:15:Sofi Sherman RN) Duration (sec): 50-80 (07/15/2016 17:15:Yessica Sykes RN) Duration (sec): 60-70 (07/15/2016 17:00:Yessica Sykes RN) Duration (sec): 50-70 (07/15/2016 16:15:Yessica Sykes RN) Duration (sec): 50-60 (07/15/2016 16:00:Yessica Sykse RN) Duration (sec): 50-70 (07/15/2016 15:45:Yessica Sykes RN) Duration (sec): 60-70 (07/15/2016 15:30:Yessica Sykes RN) Duration (sec): 60-70 (07/15/2016 15:15:Yessica Sykes RN) Duration (sec): 50-70 (07/15/2016 15:00:Yessica Sykes RN) Duration (sec): 60-70 (07/15/2016 15:00:Yessica Sykes RN) Duration (sec): 40-50 (07/15/2016 14:30:Yessica Sykes RN) Duration (sec): 40-50 (07/15/2016 14:15:Yessica Sykes RN) Duration (sec): 60-70 (07/15/2016 14:01:Yessica Sykes RN) Duration (sec): 60-70 (07/15/2016 13:45:Yessica Sykes RN) Duration (sec): 60-70 (07/15/2016 13:30:Yessica Sykes RN) Duration (sec): 40-60 (07/15/2016 13:15:Yessica Sykes RN) Duration (sec): 50-60 (07/15/2016 13:00:Yessica Sykes RN) Duration (sec): 40-60 (07/15/2016 12:45:Yessica Sykes RN) Duration (sec): 40-60 (07/15/2016 12:30:Yessica Sykes RN) Duration (sec): 40-60 (07/15/2016 12:15:Yessica Sykes RN) Duration (sec): 50-60 (07/15/2016 12:00:Yessica Sykes RN) Duration (sec): 40-70 (07/15/2016 11:45:Yessica Sykes RN) Duration (sec): 40-60 (07/15/2016 11:30:Yessica Sykes RN) Duration (sec): 60 (07/15/2016 11:15:Yessica Sykes RN) Duration (sec): 40-50 (07/15/2016 11:00:Yessica Sykes RN) Duration (sec): 40-50 (07/15/2016 10:45:Yessica Sykes RN) Duration (sec): 40-60 (07/15/2016 10:30:Yessica Sykes RN) Duration (sec): 40-60 (07/15/2016 10:15:Yessica Sykes RN) Duration (sec): 40-60 (07/15/2016 09:45:Yessica Sykes RN) Duration (sec): 40-50 (07/15/2016 09:30:Yessica Sykes RN) Duration (sec): 40-60 (07/15/2016 09:00:Yessica Sykes RN) Duration (sec): 60-80 (07/15/2016 06:30:Kentrell Augustine RN) Duration (sec): 1.5-3 (07/15/2016 06:00:Kentrell Augustine RN) Quality: Moderate to Strong (07/15/2016 18:15:Sofi Sherman RN) Quality: Moderate to Strong (07/15/2016 18:00:Sofi Sherman RN) Quality: Moderate to Strong (07/15/2016 17:45:Sofi Sherman RN) Quality: Moderate to Strong (07/15/2016 17:30:Sofi Sherman RN) Quality: Moderate (07/15/2016 17:30:Yessica Sykes RN) Quality: Moderate to Strong (07/15/2016 17:15:Sofi Sherman RN) Quality: Moderate (07/15/2016 17:15:Yessica Sykes RN) Quality: Moderate (07/15/2016 17:00:Yessica Sykes RN) Quality: Moderate (07/15/2016 16:15:Yessica Sykes RN) Quality: Moderate (07/15/2016 16:00:Yessica Sykes RN) Quality: Mild (07/15/2016 15:45:Yessica Sykes RN) Quality: Moderate (07/15/2016 15:30:Yessica Sykes RN) Quality: Mild/Moderate (07/15/2016 15:15:Yessica Sykes RN) Quality: Mild/Moderate (07/15/2016 15:00:Yessica Sykes RN) Quality: Mild/Moderate (07/15/2016 14:30:Yessica Onel, RN) Quality: Mild/Moderate (07/15/2016 14:15:Yessica Sykes RN) Quality: Mild/Moderate (07/15/2016 14:01:Yessica Sykes RN) Quality: Mild/Moderate (07/15/2016 13:45:Yessica Sykes RN) Quality: Mild/Moderate (07/15/2016 13:30:Yessica Sykes RN) Quality: Mild/Moderate (07/15/2016 13:15:Yessica Sykes RN) Quality: Mild/Moderate (07/15/2016 13:00:Yessica Sykes RN) Quality: Mild/Moderate (07/15/2016 12:45:Yessica Sykes RN) Quality: Mild/Moderate (07/15/2016 12:30:Yesisca Sykes RN) Quality: Mild/Moderate (07/15/2016 12:15:Yessica Sykes RN) Quality: Mild/Moderate (07/15/2016 12:00:Yessica Sykes RN) Quality: Mild/Moderate (07/15/2016 11:45:Yessica Sykes RN) Quality: Mild/Moderate (07/15/2016 11:30:Yessica Sykes RN) Quality: Mild/Moderate (07/15/2016 11:15:Yessica Sykes RN) Quality: Mild/Moderate (07/15/2016 11:00:Yessica Sykes RN) Quality: Mild/Moderate (07/15/2016 10:45:Yessica Sykes RN) Quality: Mild/Moderate (07/15/2016 10:30:Yessica Sykes RN) Quality: Mild/Moderate (07/15/2016 10:15:Yessica Sykes RN) Quality: Mild/Moderate (07/15/2016 10:00:Yessica Sykes RN) Quality: Mild/Moderate (07/15/2016 09:45:Yessica Sykes RN) Quality: Mild/Moderate (07/15/2016 09:30:Yessica Sykes RN) Quality: Mild/Moderate (07/15/2016 09:00:Yessica Sykes RN) Quality: Mild/Moderate (07/15/2016 08:30:Yessica Sykes RN) Quality: Mild/Moderate (07/15/2016 08:00:Yessica Sykes RN) Quality: Mild/Moderate (07/15/2016 07:30:Yessica Sykes RN) Quality: Mild/Moderate (07/15/2016 06:57:Kentrell Augustine RN) Quality: Mild/Moderate (07/15/2016 06:30:Kentrell Augustine RN) Quality: Mild/Moderate (07/15/2016 06:00:Kentrell Augustine RN) Quality: Mild/Moderate (07/15/2016 05:00:Kentrell Augustine RN) Pattern: Normal: <= 5 Contractions in 10 Minutes (07/15/2016 14:30:Yessica Sykes RN) Pattern: Normal: <= 5 Contractions in 10 Minutes (07/15/2016 14:15:Yessica Sykes RN) Pattern: Normal: <= 5 Contractions in 10 Minutes (07/15/2016 14:01:Yessica Sykes RN) Pattern: Normal: <= 5 Contractions in 10 Minutes (07/15/2016 13:45:Yessica Sykes RN) Pattern: Normal: <= 5 Contractions in 10 Minutes (07/15/2016 13:30:Yessica Sykes RN) Pattern: Normal: <= 5 Contractions in 10 Minutes (07/15/2016 13:15:Yessica Sykes RN) Pattern: Normal: <= 5 Contractions in 10 Minutes (07/15/2016 13:00:Yessica Sykes RN) Pattern: Normal: <= 5 Contractions in 10 Minutes (07/15/2016 12:45:Yessica Sykes RN) Pattern: Normal: <= 5 Contractions in 10 Minutes (07/15/2016 12:30:Yessica Sykes RN) Pattern: Normal: <= 5 Contractions in 10 Minutes (07/15/2016 12:15:Yessica Sykes RN) Pattern: Normal: <= 5 Contractions in 10 Minutes (07/15/2016 11:45:Yessica Sykes RN) Pattern: Normal: <= 5 Contractions in 10 Minutes (07/15/2016 11:30:Yessica Sykes RN) Pattern: Normal: <= 5 Contractions in 10 Minutes (07/15/2016 11:15:Yessica Sykes RN) Pattern: Normal: <= 5 Contractions in 10 Minutes (07/15/2016 11:00:Yessica Sykes RN) Pattern: Normal: <= 5 Contractions in 10 Minutes (07/15/2016 10:45:Yessica Sykes RN) Pattern: Normal: <= 5 Contractions in 10 Minutes (07/15/2016 10:30:Yessica Sykes RN) Pattern: Normal: <= 5 Contractions in 10 Minutes (07/15/2016 10:15:Yessica Sykes RN) Pattern: Normal: <= 5 Contractions in 10 Minutes (07/15/2016 10:00:Yessica Sykes RN) Pattern: Normal: <= 5 Contractions in 10 Minutes (07/15/2016 09:45:Yessica Sykes RN) Pattern: Normal: <= 5 Contractions in 10 Minutes (07/15/2016 09:30:Yessica Sykes RN) Pattern: Normal: <= 5 Contractions in 10 Minutes (07/15/2016 09:00:Yessica Sykes RN) Pattern: Normal: <= 5 Contractions in 10 Minutes (07/15/2016 08:30:Yessica Sykes RN) Pattern: Normal: <= 5 Contractions in 10 Minutes (07/15/2016 08:00:Yessica Sykes RN) Pattern: Normal: <= 5 Contractions in 10 Minutes (07/15/2016 07:30:Yessica Sykes RN) Resting Tone [place]: Relaxed (07/15/2016 18:15:Sofi Sherman RN) Resting Tone [place]: Relaxed (07/15/2016 18:00:Sofi Sherman RN) Resting Tone [place]: Relaxed (07/15/2016 17:30:Sofi Sherman RN) Resting Tone [place]: Relaxed (07/15/2016 17:30:Yessica Sykes RN) Resting Tone [place]: Relaxed (07/15/2016 17:15:Sofi Sherman RN) Resting Tone [place]: Relaxed (07/15/2016 17:15:Yessica Sykes RN) Resting Tone [place]: Relaxed (07/15/2016 17:00:Yessica Sykes RN) Resting Tone [place]: Relaxed (07/15/2016 16:15:Yessica Sykes RN) Resting Tone [place]: Relaxed (07/15/2016 16:00:Yessica Sykes RN) Resting Tone [place]: Relaxed (07/15/2016 15:45:Yessica Sykes RN) Resting Tone [place]: Relaxed (07/15/2016 15:00:Yessica Sykes RN) Resting Tone [place]: Relaxed (07/15/2016 14:45:Yessica Sykes RN) Resting Tone [place]: Relaxed (07/15/2016 14:30:Yessica Sykes RN) Resting Tone [place]: Relaxed (07/15/2016 13:45:Yessica Sykes RN) Resting Tone [place]: Relaxed (07/15/2016 13:30:Yessica Sykes RN) Resting Tone [place]: Relaxed (07/15/2016 13:15:Yessica Sykes RN) Resting Tone [place]: Relaxed (07/15/2016 13:00:Yessica Sykes RN) Resting Tone [place]: Relaxed (07/15/2016 12:30:Yessica Sykes RN) Resting Tone [place]: Relaxed (07/15/2016 12:00:Yessica Sykes RN) Resting Tone [place]: Relaxed (07/15/2016 11:45:Yessica Sykes RN) Resting Tone [place]: Relaxed (07/15/2016 11:00:Yessica Sykes RN) Resting Tone [place]: Relaxed (07/15/2016 10:15:Yessica Sykes RN) Resting Tone [place]: Relaxed (07/15/2016 10:00:Yessica Sykes RN) Resting Tone [place]: Relaxed (07/15/2016 09:45:Yessica Sykes RN) Resting Tone [place]: Relaxed (07/15/2016 09:30:Yessica Sykes RN) Resting Tone [place]: Relaxed (07/15/2016 09:00:Yessica Sykes RN) Resting Tone [place]: Relaxed (07/15/2016 08:30:Yessica Sykes RN) Resting Tone [place]: Relaxed (07/15/2016 08:00:Yessica Sykes RN) Resting Tone [place]: Relaxed (07/15/2016 07:30:Yessica Sykes RN) Resting Tone [place]: Relaxed (07/15/2016 06:57:Kentrell Augustine RN) Resting Tone [place]: Relaxed (07/15/2016 06:30:Kentrell Augustine RN) Resting Tone [place]: Relaxed (07/15/2016 06:00:Kentrell Augustine RN) Resting Tone [place]: Relaxed (07/15/2016 05:30:Kentrell Augustine RN) Resting Tone [place]: Relaxed (07/15/2016 05:00:Kentrell Augustine RN) Contraction Comments: toco removed per patient, RN attempting to put back on (07/15/2016 16:45:Yessica Sykes RN) Contraction Comments: unable to dermine contraction pattern due to patient sitting for epidural (07/15/2016 16:30:Yessica Sykes RN) Contraction Comments: unable to determine contraction pattern due to patient movement, RN at bedside adjusting monitor (07/15/2016 14:45:Yessica Sykes RN) Contraction Comments: irritability (07/15/2016 11:30:Yessica Sykes RN) Contraction Comments: irritability (07/15/2016 11:00:Yessica Sykes RN) Contraction Comments: irritability (07/15/2016 10:45:Yessica Sykes RN) Contraction Comments: irritability (07/15/2016 10:15:Yessica Sykes RN) Contraction Comments: irritability (07/15/2016 10:00:Yessica Sykes RN) Contraction Comments: irritability (07/15/2016 09:30:Yessica Sykes RN) Contraction Comments: irritability (07/15/2016 08:30:Yessica Sykes RN) Contraction Comments: irritability (07/15/2016 08:00:Yessica Sykes RN) Contraction Comments: irritability (07/15/2016 07:30:Yessica Sykes RN) Contraction Comments: Moderate variability (07/15/2016 06:30:Kentrell Augustine RN) Contraction Comments: Irritability noted (07/15/2016 05:00:Kentrell Augustine RN) Dilatation (cm): 10.0 (07/15/2016 17:55:Yessica Sykes RN) Dilatation (cm): 8.0 (07/15/2016 17:25:Yessica Sykes RN) Dilatation (cm): 5.0 (07/15/2016 16:45:Yessica Sykes RN) Dilatation (cm): 3.0 (07/15/2016 15:30:Yessica Sykes RN) Dilatation (cm): 2.0 (07/15/2016 07:47:Yessica Sykes RN) Effacement (%): 100 (07/15/2016 17:55:Yessica Sykes RN) Effacement (%): 100 (07/15/2016 17:25:Yessica Sykes RN) Effacement (%): 100 (07/15/2016 16:45:Yessica Sykes RN) Effacement (%): 90 (07/15/2016 15:30:Yessica Sykes RN) Effacement (%): 70 (07/15/2016 07:47:Yessica Sykes RN) Station: 1 (07/15/2016 17:55:Yessica Sykes RN) Station: 0 (07/15/2016 17:25:Yessica Sykes RN) Station: 0 (07/15/2016 16:45:Yessica Sykes RN) Station: 0 (07/15/2016 15:30:Yessica Sykes RN) Station: -2 (07/15/2016 07:47:Yessica Sykes RN) Membranes Rupture D/ (07/15/2016 17:50:Yessica Sykes RN) ROM Method: Spontaneous (07/15/2016 17:50:Yessica Sykes RN) Amniotic Fluid Color: Bloody (07/15/2016 17:50:Yessica Sykes RN) Amniotic Fluid Amount: Moderate (07/15/2016 17:50:Yessica Sykes RN) Amniotic Fluid Odor: Foul (07/15/2016 17:50:Yessica Sykes RN) Level of Consciousness: Fully Conscious (07/16/2016 07:38:Yessica Sykes RN) Level of Consciousness: Fully Conscious (07/15/2016 07:45:Yessica Sykes RN) DTR's/Clonus: DTRs 2+; No Clonus (07/16/2016 07:38:Yessica Sykes RN) DTR's/Clonus: DTRs 2+; No Clonus (07/15/2016 07:45:Yessica Sykes RN) Headache: Denies (07/16/2016 07:38:Yessica Sykes RN) Headache: Denies (07/15/2016 07:45:Yessica Sykes RN) Dizziness: No (07/16/2016 07:38:Yessica Sykes RN) Dizziness: No (07/15/2016 07:45:Yessica Sykes RN) Blurred Vision: No (07/16/2016 07:38:Yessica Sykes RN) Blurred Vision: No (07/15/2016 07:45:Yessica Sykes RN) Extremity Numbness/Tingling : None (07/16/2016 07:38:Yessica Sykes RN) Extremity Numbness/Tingling : None (07/15/2016 07:45:Yessica Sykes RN) Extremity Movement: Full Range of Motion (07/16/2016 07:38:Yessica Sykes RN) Extremity Movement: Full Range of Motion (07/15/2016 07:45:Yessica Sykes RN) Heart Rhythm: Regular (07/16/2016 07:38:Yessica Sykes RN) Heart Rhythm: Regular (07/15/2016 07:45:Yessica Sykes RN) Nailbeds: [place] (07/16/2016 07:38:Yessica Sykes RN) Nailbeds: [place] (07/15/2016 07:45:Yessica Sykes RN) Capillary Refill: Less than 3 Seconds (07/16/2016 07:38:Yessica Sykes RN) Capillary Refill: Less than 3 Seconds (07/15/2016 07:45:Yessica Sykes RN) Lower Extremities Edema: None (07/16/2016 07:38:Yessica Sykes RN) Lower Extremities Edema: None (07/15/2016 07:45:Yessica Sykes RN) Lower Extremities Edema Degree: None (07/16/2016 07:38:Yessica Sykes RN) Lower Extremities Edema Degree: None (07/15/2016 07:45:Yessica Sykes RN) Upper Extremities Edema: None (07/16/2016 07:38:Yessica Sykes RN) Upper Extremities Edema: None (07/15/2016 07:45:Yessica Sykes RN) Upper Extremities Edema Degree: None (07/16/2016 07:38:Yessica Sykes RN) Upper Extremities Edema Degree: None (07/15/2016 07:45:Yessica Sykes RN) Facial Edema: None (07/16/2016 07:38:Yessica Sykes RN) Facial Edema: None (07/15/2016 07:45:Yessica Sykes RN) Jemal's Sign Left Leg: Negative (07/16/2016 07:38:Yessica Sykes RN) Jemal's Sign Left Leg: Negative (07/15/2016 07:45:Yessica Sykes RN) Jemal's Sign Right Leg: Negative (07/16/2016 07:38:Yessica Sykes RN) Jemal's Sign Right Leg: Negative (07/15/2016 07:45:Yessica Sykes RN) DVT Risk Age: Age less than 41 years (07/16/2016 07:38:Yessica Sykes RN) DVT Risk Age: Age less than 41 years (07/15/2016 07:45:Yessica Sykes RN) DVT Risk BMI: BMI<31 (07/16/2016 07:38:Yessica Sykes RN) DVT Risk BMI: BMI<31 (07/15/2016 07:45:Yessica Sykes RN) DVT Risk Surgery: History of Prior Major Surgery (07/16/2016 07:38:Yessica Sykes RN) DVT Risk Surgery: History of Prior Major Surgery (07/15/2016 07:45:Yessica Sykes RN) DVT Risk Other: Women Only- or (<1 month) (07/16/2016 07:38:Yessica Sykes RN) DVT Risk Other: Women Only- or (<1 month) (07/15/2016 07:45:Yessica Sykes RN) DVT Risk Total: 2 (07/16/2016 07:38:QS system process) DVT Risk Total: 2 (07/15/2016 07:45:QS system process) DVT Risk Text: Moderate Risk (10-20%) - Consider stockings, compresssion device, pharmacological therapy per hospital policy (07/16/2016 07:38:QS system process) DVT Risk Text: Moderate Risk (10-20%) - Consider stockings, compresssion device, pharmacological therapy per hospital policy (07/15/2016 07:45:QS system process) Respiratory Effort: Unlabored; Regular Rhythm; Equal Expansion (07/16/2016 07:38:Yessica Sykes RN) Respiratory Effort: Unlabored; Regular Rhythm; Equal Expansion (07/15/2016 07:45:Yessica Sykes RN) Breath Sounds, Left: Clear and Equal (07/16/2016 07:38:Yessica Sykes RN) Breath Sounds, Left: Clear and Equal (07/15/2016 07:45:Yessica Sykes RN) Breath Sounds, Right: Clear and Equal (07/16/2016 07:38:Yessica Sykes RN) Breath Sounds, Right: Clear and Equal (07/15/2016 07:45:Yessica Sykes RN) Cough Productivity: None (07/16/2016 07:38:Yessica Sykes RN) Cough Productivity: None (07/15/2016 07:45:Yessica Sykes RN) Nausea/Vomiting: Denies (07/16/2016 07:38:Yessica Sykes RN) Nausea/Vomiting: Denies (07/15/2016 07:45:Yessica Sykes RN) Bowel Sounds: Normoactive (07/16/2016 07:38:eYssica Sykes RN) Bowel Sounds: Normoactive (07/15/2016 07:45:Yessica Sykes RN) RUQ Epigastric Pain: Denies (07/16/2016 07:38:Yessica Sykes RN) RUQ Epigastric Pain: Denies (07/15/2016 07:45:Yessica Sykes RN) Bowel Patterns: Soft, Formed Stool (07/16/2016 07:38:Yessica Sykes RN) Bowel Patterns: Soft, Formed Stool (07/15/2016 07:45:Yessica Sykes RN) Hemorrhoids: None (07/16/2016 07:38:Yesisca Sykes RN) Hemorrhoids: None (07/15/2016 07:45:Yessica Sykes RN) Diet Type: Regular diet (07/16/2016 07:38:Yessica Sykes RN) Diet Type: Regular diet (07/15/2016 07:45:Yessica Sykes RN) Bladder: Nondistended (Annotations: patient states she was able to get up and void about 30 minutes ago) (07/16/2016 07:38:Yessica Sykes RN) Bladder: Nondistended (07/15/2016 07:45:Yessica Sykes RN) Frequency of Urination: No (07/16/2016 07:38:Yessica Sykes RN) Frequency of Urination: No (07/15/2016 07:45:Yessica Sykes RN) Urination Burning: No (07/16/2016 07:38:Yessica Sykes RN) Urination Burning: No (07/15/2016 07:45:Yessica Sykes RN) CVA Tenderness: No (07/16/2016 07:38:Yessica Sykes RN) CVA Tenderness: No (07/15/2016 07:45:Yessica Sykes RN) Vaginal Discharge Amount: Small (07/16/2016 07:38:Yessica Sykes RN) Vaginal Discharge Amount: None (07/15/2016 07:45:Yessica Sykes RN) Vaginal Discharge Color: N/A (Annotations: scant amount of blood, uterus firm, 1 below umbilicus) (07/16/2016 07:38:Yessica Sykes RN) Vaginal Discharge Color: N/A (07/15/2016 07:45:Yessica Sykes RN) Vaginal Discharge Odor: Non-Odorous (07/16/2016 07:38:Yessica Sykes RN) Vaginal Discharge Odor: Non-Odorous (07/15/2016 07:45:Yessica Sykes RN) Vaginal Discharge Character: Thin (07/16/2016 07:38:Yessica Sykes RN) Vaginal Discharge Character: None (07/15/2016 07:45:Yessica Sykes RN) Skin Color: Normal for Race (07/16/2016 07:38:Yessica Sykes RN) Skin Color: Normal for Race (07/15/2016 07:45:Yessica Sykes RN) Skin Temperature: Warm (07/16/2016 07:38:Yessica Sykes RN) Skin Temperature: Warm (07/15/2016 07:45:Yessica Sykes RN) Skin Moisture: Dry (07/16/2016 07:38:Yessica Sykes RN) Skin Moisture: Dry (07/15/2016 07:45:Yessica Sykes RN) Domenico Scale Sensory Perception: No Impairment- Responds to verbal commands. Has no sensory deficit which would limit ability to feel or voice pain or discomfort (07/16/2016 07:38:Yessica Sykes RN) Domenico Scale Sensory Perception: No Impairment- Responds to verbal commands. Has no sensory deficit which would limit ability to feel or voice pain or discomfort (07/15/2016 07:45:Yessica Sykes RN) Domenico Scale Moisture: Rarely Moist- Skin is usually dry. Linen only requires changing at routine intervals (07/16/2016 07:38:Yessica Sykes RN) Domenico Scale Moisture: Rarely Moist- Skin is usually dry. Linen only requires changing at routine intervals (07/15/2016 07:45:Yessica Sykes RN) Domenico Scale Activity: Walks Frequently- Walks outside the room at least twice a day and inside room at least every 2 hours during the day. (07/16/2016 07:38:Yessica Sykes RN) Domenico Scale Activity: Walks Frequently- Walks outside the room at least twice a day and inside room at least every 2 hours during the day. (07/15/2016 07:45:Yessica Sykes RN) Domenico Scale Mobility: No Limitations- Makes major and frequent changes in position without assistance (07/16/2016 07:38:Yessica Sykes RN) Domenico Scale Mobility: No Limitations- Makes major and frequent changes in position without assistance (07/15/2016 07:45:Yessica Sykes RN) Domenico Scale Nutrition: Excellent- Eats most of every meal. Never refuses a meal. Usually eats a total of 4 or more servings of meat and dairy products. Occasionally eats between meals. Does not require supplementation (07/16/2016 07:38:Yessica Sykes RN) Domenico Scale Nutrition: Excellent- Eats most of every meal. Never refuses a meal. Usually eats a total of 4 or more servings of meat and dairy products. Occasionally eats between meals. Does not require supplementation (07/15/2016 07:45:Yessica Sykes RN) Domenico Scale Friction and Shear: No Apparent Problem- Moves in bed and in chair independently and has sufficient muscle strength to lift up completely during move. Maintains good position in bed or chair at all times (07/16/2016 07:38:Yessica Sykes RN) Domenico Scale Friction and Shear: No Apparent Problem- Moves in bed and in chair independently and has sufficient muscle strength to lift up completely during move. Maintains good position in bed or chair at all times (07/15/2016 07:45:Yessica Sykes RN) Domenico Scale Total: 23 (07/16/2016 07:38:QS system process) Domenico Scale Total: 23 (07/15/2016 07:45:QS system process) Domenico Scale Risk: No Risk of Pressure Ulcer Noted at this Time (07/16/2016 07:38:QS system process) Domenico Scale Risk: No Risk of Pressure Ulcer Noted at this Time (07/15/2016 07:45:QS system process) Family Support: Significant Other supportive, at bedside frequently; Family supportive (07/16/2016 07:38:Yessica Sykes RN) Family Support: Significant Other supportive, at bedside frequently; Family supportive (07/15/2016 07:45:Yessica Sykes RN) Emotional State: Calm/Relaxed (07/16/2016 07:38:Yessica Sykes RN) Emotional State: Calm/Relaxed (07/15/2016 07:45:Yessica Sykes RN) Call Woodson Within Reach: Yes (07/16/2016 07:38:Yessica Sykes RN) Call Woodson Within Reach: Yes (07/15/2016 07:45:Yessica Sykes RN) Side Rails Up: Yes (07/16/2016 07:38:Yessica Sykes RN) Side Rails Up: Yes (07/15/2016 07:45:Yessica Sykes RN) Bed Wheels Locked: Yes (07/16/2016 07:38:Yessica Sykes RN) Bed Wheels Locked: Yes (07/15/2016 07:45:Yessica Sykes RN) Arm Bands Present: Yes (07/16/2016 07:38:Yessica Sykes RN) Arm Bands Present: Yes (07/15/2016 07:45:Yessica Sykes RN) Isolation: [place] (07/16/2016 07:38:Yessica Sykes RN) Isolation: [place] (07/15/2016 07:45:Yesisca Sykes RN) Fall Risk History of Falling: (0) No (07/16/2016 07:38:Yessica Sykes RN) Fall Risk History of Falling: (0) No (07/15/2016 07:45:Yessica Sykes RN) Fall Risk Secondary Diagnosis: (0) No (07/16/2016 07:38:Yessica Sykes RN) Fall Risk Secondary Diagnosis: (0) No (07/15/2016 07:45:Yessica Sykes RN) Fall Risk Ambulatory Aid: (0) None/Bedrest/Wheelchair/Nurse Assist (07/16/2016 07:38:Yessica Sykes RN) Fall Risk Ambulatory Aid: (0) None/Bedrest/Wheelchair/Nurse Assist (07/15/2016 07:45:Yessica Sykes RN) Fall Risk IV Therapy: (0) No (07/16/2016 07:38:Yessica Sykes RN) Fall Risk IV Therapy: (20) Yes (07/15/2016 07:45:Yessica Sykes RN) Fall Risk Gait: (0) Normal/Bedrest/Immobile (07/16/2016 07:38:Yessica Sykes RN) Fall Risk Gait: (0) Normal/Bedrest/Immobile (07/15/2016 07:45:Yessica Sykes RN) Fall Risk Mental Status: (0) Oriented to Own Ability (07/16/2016 07:38:Yessica Sykes RN) Fall Risk Mental Status: (0) Oriented to Own Ability (07/15/2016 07:45:Yessica Sykes RN) Fall Risk Score: 0 (07/16/2016 07:38:QS system process) Fall Risk Score: 20 (07/15/2016 07:45:QS system process) Fall Risk Score Definition: No Risk: No action required (07/16/2016 07:38:QS system process) Fall Risk Score Definition: No Risk: No action required (07/15/2016 07:45:QS system process) Recent Exp Communicable Disease: No (07/16/2016 07:38:Yessica Sykes RN) Recent Exp Communicable Disease: No (07/15/2016 07:45:Yessica Sykes RN) Cough or Fever: No (07/16/2016 07:38:Yessica Sykes RN) Cough or Fever: No (07/15/2016 07:45:Yessica Sykes RN) Foreign Travel Past 10 Days: No (07/16/2016 07:38:Yessica Sykes RN) Foreign Travel Past 10 Days: No (07/15/2016 07:45:Yessica Sykes RN) Open Wounds or Sores: No (07/16/2016 07:38:Yessica Sykes RN) Open Wounds or Sores: No (07/15/2016 07:45:Yessica Sykes RN) Prior Antibiotic Resistance Tx: No (07/16/2016 07:38:Yessica Sykes RN) Prior Antibiotic Resistance Tx: No (07/15/2016 07:45:Yessica Sykes RN) Cultures Obtained: Not Applicable (07/16/2016 07:38:Yessica Sykes RN) Cultures Obtained: Not Applicable (07/15/2016 07:45:Yessica Sykes RN) Isolation Initiated: No (07/16/2016 07:38:Yessica Sykes RN) Isolation Initiated: No (07/15/2016 07:45:Yessica Sykes RN) Pt/Family Education: Handwashing Hygiene (07/16/2016 07:38:Yessica Sykes RN) Pt/Family Education: Handwashing Hygiene (07/15/2016 07:45:Yessica Sykes RN)
--- NOTE | 2016-07-17 10:47 | L&D Current Admission ---
Current Admit Datetime Report Generated by CPN: 07/17/2016 10:45 ADMISSION INFORMATION Chief Complaint: IUFD (07/14/2016 19:30:Kentrell Augustine RN)
--- NOTE | 2016-07-17 10:47 | L&D Discharge Summary ---
OB Discharge Summary Datetime Report Generated by CPN: 07/17/2016 10:45 DISCHARGE DIAGNOSIS Gestation: 38.5 Number of Babies in Womb: 1 Parity: 0
--- NOTE | 2016-07-17 10:47 | L&D General Admission ---
General Admit Datetime Report Generated by CPN: 07/17/2016 10:45 INFORMATION Patient Age: 25 (06/12/2016 15:08:QS system process) EDC: 07/24/2016 00:00 (07/14/2016 18:57:SWA Mclain) : 2 (07/14/2016 18:57:SAW Mclain) Para: 0 (07/14/2016 18:57:SAW Mclain) Term: 0 (07/14/2016 18:57:SAW Mclain) : 0 (07/14/2016 18:57:SAW Mclain) Spontaneous Abortions: 1 (07/14/2016 18:57:SAW Mclain) Induced Abortions: 0 (07/14/2016 18:57:SAW Mclain) Livin (07/14/2016 18:57:SAW Mclain) Cesareans: 0 (07/14/2016 18:57:SAW Mclain) VBACs: 0 (07/14/2016 18:57:SAW Mclain) Ectopic: 0 (07/14/2016 18:57:SAW Mclain) Multiple Births: 0 (07/14/2016 18:57:SAW Mclain) Baby, Number in Womb: 1 (07/14/2016 18:57:SAW Mclain) CARE Primary [employer]r: [facility] (07/14/2016 18:57:SAW Mclain) Adequate Care: Yes (07/14/2016 18:57:SAW Mclain) Prepregnancy Weight (lb): 155 (07/14/2016 18:57:SAW Mclain) Prepregnancy Weight (kg): 70.5 (07/14/2016 18:57:QS system process) Height (in): 68 (07/16/2016 09:26:QS system process) Height (in): 68 (07/16/2016 08:48:QS system process) Height (in): 68 (07/14/2016 21:01:QS system process) Height (in): 68 (07/14/2016 18:59:QS system process) ALLERGIES Medication Allergy: Yes (07/14/2016 18:57:SAW Mclain) Medication Allergies: penicillin G (07/14/2016); latex (07/14/2016) (07/14/2016 18:59:QS system process) Latex Allergy: Latex Allergies (07/14/2016 18:57:SAW Mclain) COMMUNICATION Primary Language: Setswana (07/14/2016 18:57:SAW Mclain) DEMOGRAPHICS Address: [address] [place] [address] (07/14/2016 10:39:QS system process) Address: [place] [address] (06/12/2016 15:08:QS system process) Zipcode: [address] (06/12/2016 15:08:QS system process) Home (06/12/2016 15:08:QS system process) SSN: [id number] (06/12/2016 15:08:QS system process) Next of Kin Name: CHOLO ELIZALDE (06/12/2016 15:08:QS system process) Next of Kin (06/12/2016 15:08:QS system process) Next of Kin Relationship: SPO (06/12/2016 15:08:QS system process) Date of : 1990 (06/12/2016 15:08:QS system process) Marital Status: (06/12/2016 15:08:QS system process) Sex: Female (06/12/2016 15:08:QS system process) Race: (06/12/2016 15:08:QS system process) Ethnicity: Non- or (06/12/2016 15:08:QS system process) Anabaptist: None (06/12/2016 15:08:QS system process) FOB Involved: Yes (07/14/2016 18:57:Josephine Christensen RN) Father of Baby Name: Cholo Elizalde (07/14/2016 18:57:Josephine Christensen RN) LABS Blood Type: AB Positive (07/14/2016 18:57:Vero Oh RN) Antibody Screen: negative (07/14/2016 18:57:Vero Oh RN) Hemoglobin: 10.4 L (07/16/2016 06:52:QS system process) Hemoglobin: 11.4 L (07/15/2016 19:30:QS system process) Hemoglobin: 11.1 L (07/14/2016 19:09:QS system process) Hematocrit: 30.9 L (07/16/2016 06:52:QS system process) Hematocrit: 34.4 L (07/15/2016 19:30:QS system process) Hematocrit: 33.5 L (07/14/2016 19:09:QS system process) MCV: 79 L (07/16/2016 06:52:QS system process) MCV: 80 (07/15/2016 19:30:QS system process) MCV: 79 L (07/14/2016 19:09:QS system process) Group Beta Strep: negative (07/14/2016 18:57:Vero Oh RN) Gonorrhea: Negative (07/14/2016 18:57:Vero Oh RN) Chlamydia: Negative (07/14/2016 18:57:Vero Oh RN) RPR/VDRL: Nonreactive (07/14/2016 18:57:Vero Oh, RN) HIV Exposure Test: Negative (07/14/2016 18:57:Vero Oh, RN) Hepatitis B: Negative (07/14/2016 18:57:Vero Oh RN) Rubella: Immune (07/14/2016 18:57:Vero Oh, RN)
--- NOTE | 2016-07-17 10:47 | L&D Admission Assessment ---
LD ADM ASMT Datetime Report Generated by CPN: 07/17/2016 10:45 Assessment Type: Ongoing Assessment (07/16/2016 07:38:Yessica Sykes RN) Weight (lb): 7 (07/16/2016 09:26:QS system process) Weight (lb): 198 (07/16/2016 08:48:QS system process) Weight (kg): 3.2 (07/16/2016 09:26:QS system process) Weight (kg): 90.0 (07/16/2016 08:48:QS system process) Total Wt Gain (lb): -148 (07/16/2016 09:26:QS system process) Total Wt Gain (lb): 43 (07/16/2016 08:48:QS system process) Wt Gain (kg): -67.5 (07/16/2016 09:26:QS system process) Wt Gain (kg): 19.5 (07/16/2016 08:48:QS system process) BMI: 1.1 (07/16/2016 09:26:QS system process) BMI: 30.1 (07/16/2016 08:48:QS system process) Pain Scale: 2 (07/15/2016 23:20:Josephine Christensen RN) Pain Scale: 3 (07/15/2016 13:13:Yessica Sykes RN) Pain Scale: 2 (07/15/2016 11:49:Yessica Sykes RN) Pain Presence: Constant (07/15/2016 23:20:Josephine Christensen RN) Pain Type: Cramping (07/15/2016 23:20:Josephine Christensen RN) Pain Location: Abdomen; Perineum (07/15/2016 23:20:Josephine Christensen RN) Pain Location: Abdomen (07/15/2016 13:13:Yessica Sykes RN) Pain Goal: 1 (07/15/2016 11:49:Yessica Sykes RN) Pain Comments: patient resting peacefully, patient's mother at bedside (07/15/2016 14:25:Yessica Sykes RN) Frequency (min): 1-2 (07/15/2016 18:15:Sofi Sherman RN) Frequency (min): 1-2 (07/15/2016 18:00:Sofi Sherman RN) Frequency (min): 1-1.5 (07/15/2016 17:45:Sofi Sherman RN) Frequency (min): 1-1.5 (07/15/2016 17:30:Sofi Sherman RN) Frequency (min): 1-2 (07/15/2016 17:30:Yessica Sykes RN) Frequency (min): 1-1.5 (07/15/2016 17:15:Sofi Sherman RN) Frequency (min): 1-1.5 (07/15/2016 17:15:Yessica Sykes RN) Frequency (min): 1-1.5 (07/15/2016 17:00:Yessica Sykes RN) Frequency (min): 1.-2 (07/15/2016 16:15:Yessica Sykes RN) Frequency (min): 1.5-2.5 (07/15/2016 16:00:Yessica Sykes RN) Frequency (min): 1-1.5 (07/15/2016 15:45:Yessica Sykes RN) Frequency (min): 1-1.5 (07/15/2016 15:30:Yessica Sykes RN) Frequency (min): 1.5 (07/15/2016 15:15:Yessica Sykes RN) Frequency (min): 1-2 (07/15/2016 15:00:Yessica Sykes RN) Frequency (min): 1-1.5 (07/15/2016 15:00:Yessica Sykes RN) Frequency (min): 2-3 (07/15/2016 14:30:Yessica Sykes, RN) Frequency (min): 1.5-3 (07/15/2016 14:15:Yessica Sykes, RN) Frequency (min): 1-2 (07/15/2016 14:01:Yessica Sykes, RN) Frequency (min): 1.5-2 (07/15/2016 13:45:Yessica Sykes RN) Frequency (min): 1.5-2 (07/15/2016 13:30:Yessica Sykes RN) Frequency (min): 1.5-2 (07/15/2016 13:15:Yessica Sykes, RN) Frequency (min): 1-2.5 (07/15/2016 13:00:Yessica Sykes RN) Frequency (min): 1-6 (07/15/2016 12:45:Yessica Sykes RN) Frequency (min): 1-3.5 (07/15/2016 12:30:Yessica Sykes RN) Frequency (min): 1-1.5 (07/15/2016 12:15:Yessica Sykes RN) Frequency (min): 1-1.5 (07/15/2016 12:00:Yessica Sykes RN) Frequency (min): 2-3 (07/15/2016 11:45:Yessica Sykes RN) Frequency (min): 2-4 (07/15/2016 11:30:Yessica Sykes RN) Frequency (min): 2-4 (07/15/2016 11:15:Yessica Sykes RN) Frequency (min): 2-4 (07/15/2016 11:00:Yessica Sykes RN) Frequency (min): 1-3 (07/15/2016 10:45:Yessica Sykes RN) Duration (sec): 55-70 (07/15/2016 18:15:Sofi Sherman RN) Duration (sec): 55-70 (07/15/2016 18:00:Sofi Sherman RN) Duration (sec): 55-65 (07/15/2016 17:45:Sofi Sherman RN) Duration (sec): 55-65 (07/15/2016 17:30:Sofi Sherman RN) Duration (sec): 60-70 (07/15/2016 17:30:Yessica Sykes RN) Duration (sec): 50-100 (07/15/2016 17:15:Sofi Sherman RN) Duration (sec): 50-80 (07/15/2016 17:15:Yessica Sykes RN) Duration (sec): 60-70 (07/15/2016 17:00:Yessica Sykes RN) Duration (sec): 50-70 (07/15/2016 16:15:Yessica Sykes RN) Duration (sec): 50-60 (07/15/2016 16:00:Yessica Sykes RN) Duration (sec): 50-70 (07/15/2016 15:45:Yessica Sykes RN) Duration (sec): 60-70 (07/15/2016 15:30:Yessica Sykes RN) Duration (sec): 60-70 (07/15/2016 15:15:Yessica Sykes RN) Duration (sec): 50-70 (07/15/2016 15:00:Yessica Sykes RN) Duration (sec): 60-70 (07/15/2016 15:00:Yessica Sykes RN) Duration (sec): 40-50 (07/15/2016 14:30:Yessica Sykes RN) Duration (sec): 40-50 (07/15/2016 14:15:Yessica Sykes RN) Duration (sec): 60-70 (07/15/2016 14:01:Yessica Sykes RN) Duration (sec): 60-70 (07/15/2016 13:45:Yessica Sykes RN) Duration (sec): 60-70 (07/15/2016 13:30:Yessica Sykes RN) Duration (sec): 40-60 (07/15/2016 13:15:Yessica Sykes RN) Duration (sec): 50-60 (07/15/2016 13:00:Yessica Sykes RN) Duration (sec): 40-60 (07/15/2016 12:45:Yessica Sykes RN) Duration (sec): 40-60 (07/15/2016 12:30:Yessica Sykes RN) Duration (sec): 40-60 (07/15/2016 12:15:Yessica Sykes RN) Duration (sec): 50-60 (07/15/2016 12:00:Yessica Sykes RN) Duration (sec): 40-70 (07/15/2016 11:45:Yessica Sykes RN) Duration (sec): 40-60 (07/15/2016 11:30:Yessica Sykes RN) Duration (sec): 60 (07/15/2016 11:15:Yessica Sykes RN) Duration (sec): 40-50 (07/15/2016 11:00:Yessica Sykes RN) Duration (sec): 40-50 (07/15/2016 10:45:Yessica Sykes RN) Quality: Moderate to Strong (07/15/2016 18:15:Sofi Sherman RN) Quality: Moderate to Strong (07/15/2016 18:00:Sofi Sherman RN) Quality: Moderate to Strong (07/15/2016 17:45:Sofi Sherman RN) Quality: Moderate to Strong (07/15/2016 17:30:Sofi Sherman RN) Quality: Moderate (07/15/2016 17:30:Yessica Sykes RN) Quality: Moderate to Strong (07/15/2016 17:15:Sofi Shemran RN) Quality: Moderate (07/15/2016 17:15:Yessica Sykes RN) Quality: Moderate (07/15/2016 17:00:Yessica Sykes RN) Quality: Moderate (07/15/2016 16:15:Yessica Sykes RN) Quality: Moderate (07/15/2016 16:00:Yessica Sykes RN) Quality: Mild (07/15/2016 15:45:Yessica Sykes RN) Quality: Moderate (07/15/2016 15:30:Yessica Sykes RN) Quality: Mild/Moderate (07/15/2016 15:15:Yessica Sykes RN) Quality: Mild/Moderate (07/15/2016 15:00:Yessica Sykes RN) Quality: Mild/Moderate (07/15/2016 14:30:Yessica Sykes RN) Quality: Mild/Moderate (07/15/2016 14:15:Yessica Sykes RN) Quality: Mild/Moderate (07/15/2016 14:01:Yessica Sykes RN) Quality: Mild/Moderate (07/15/2016 13:45:Yessica Sykes RN) Quality: Mild/Moderate (07/15/2016 13:30:Yessica Sykes RN) Quality: Mild/Moderate (07/15/2016 13:15:Yessica Sykes RN) Quality: Mild/Moderate (07/15/2016 13:00:Yessica Sykes RN) Quality: Mild/Moderate (07/15/2016 12:45:Yessica Sykes RN) Quality: Mild/Moderate (07/15/2016 12:30:Yessica Sykes RN) Quality: Mild/Moderate (07/15/2016 12:15:Yessica Sykes RN) Quality: Mild/Moderate (07/15/2016 12:00:Yessica Sykes RN) Quality: Mild/Moderate (07/15/2016 11:45:Yessica Sykes RN) Quality: Mild/Moderate (07/15/2016 11:30:Yessica Sykes RN) Quality: Mild/Moderate (07/15/2016 11:15:Yessica Sykes RN) Quality: Mild/Moderate (07/15/2016 11:00:Yessica Sykes RN) Quality: Mild/Moderate (07/15/2016 10:45:Yessica Sykes RN) Pattern: Normal: <= 5 Contractions in 10 Minutes (07/15/2016 14:30:Yessica Sykes RN) Pattern: Normal: <= 5 Contractions in 10 Minutes (07/15/2016 14:15:Yessica Sykes RN) Pattern: Normal: <= 5 Contractions in 10 Minutes (07/15/2016 14:01:Yessica Sykes RN) Pattern: Normal: <= 5 Contractions in 10 Minutes (07/15/2016 13:45:Yessica Sykes RN) Pattern: Normal: <= 5 Contractions in 10 Minutes (07/15/2016 13:30:Yessica Sykes RN) Pattern: Normal: <= 5 Contractions in 10 Minutes (07/15/2016 13:15:Yessica Sykes RN) Pattern: Normal: <= 5 Contractions in 10 Minutes (07/15/2016 13:00:Yessica Sykes RN) Pattern: Normal: <= 5 Contractions in 10 Minutes (07/15/2016 12:45:Yessica Sykes RN) Pattern: Normal: <= 5 Contractions in 10 Minutes (07/15/2016 12:30:Yessica Sykes RN) Pattern: Normal: <= 5 Contractions in 10 Minutes (07/15/2016 12:15:Yessica Sykes RN) Pattern: Normal: <= 5 Contractions in 10 Minutes (07/15/2016 11:45:Yessica Sykes RN) Pattern: Normal: <= 5 Contractions in 10 Minutes (07/15/2016 11:30:Yessica Sykes RN) Pattern: Normal: <= 5 Contractions in 10 Minutes (07/15/2016 11:15:Yessica Sykes RN) Pattern: Normal: <= 5 Contractions in 10 Minutes (07/15/2016 11:00:Yessica Sykes RN) Pattern: Normal: <= 5 Contractions in 10 Minutes (07/15/2016 10:45:Yessica Sykes RN) Resting Tone [place]: Relaxed (07/15/2016 18:15:Sofi Sherman RN) Resting Tone [place]: Relaxed (07/15/2016 18:00:Sofi Sherman RN) Resting Tone [place]: Relaxed (07/15/2016 17:30:Sofi Sherman RN) Resting Tone [place]: Relaxed (07/15/2016 17:30:Yessica Sykes RN) Resting Tone [place]: Relaxed (07/15/2016 17:15:Sofi Sherman RN) Resting Tone [place]: Relaxed (07/15/2016 17:15:Yessica Sykes RN) Resting Tone [place]: Relaxed (07/15/2016 17:00:Yessica Sykes RN) Resting Tone [place]: Relaxed (07/15/2016 16:15:Yessica Sykes RN) Resting Tone [place]: Relaxed (07/15/2016 16:00:Yessica Sykes RN) Resting Tone [place]: Relaxed (07/15/2016 15:45:Yessica Sykes RN) Resting Tone [place]: Relaxed (07/15/2016 15:00:Yessica Sykes RN) Resting Tone [place]: Relaxed (07/15/2016 14:45:Yessica Sykes RN) Resting Tone [place]: Relaxed (07/15/2016 14:30:Yessica Sykes RN) Resting Tone [place]: Relaxed (07/15/2016 13:45:Yessica Sykes RN) Resting Tone [place]: Relaxed (07/15/2016 13:30:Yessica Sykes RN) Resting Tone [place]: Relaxed (07/15/2016 13:15:Yessica Sykes RN) Resting Tone [place]: Relaxed (07/15/2016 13:00:Yessica Sykes RN) Resting Tone [place]: Relaxed (07/15/2016 12:30:Yessica Sykes RN) Resting Tone [place]: Relaxed (07/15/2016 12:00:Yessica Sykes RN) Resting Tone [place]: Relaxed (07/15/2016 11:45:Yessica Sykes RN) Resting Tone [place]: Relaxed (07/15/2016 11:00:Yessica Sykes RN) Contraction Comments: toco removed per patient, RN attempting to put back on (07/15/2016 16:45:Yessica Sykes RN) Contraction Comments: unable to dermine contraction pattern due to patient sitting for epidural (07/15/2016 16:30:Yessica Sykes RN) Contraction Comments: unable to determine contraction pattern due to patient movement, RN at bedside adjusting monitor (07/15/2016 14:45:Yessica Sykes RN) Contraction Comments: irritability (07/15/2016 11:30:Yessica Sykes RN) Contraction Comments: irritability (07/15/2016 11:00:Yessica Sykes RN) Contraction Comments: irritability (07/15/2016 10:45:Yessica Sykes RN) Dilatation (cm): 10.0 (07/15/2016 17:55:Yessica Sykes RN) Dilatation (cm): 8.0 (07/15/2016 17:25:Yessica Sykes RN) Dilatation (cm): 5.0 (07/15/2016 16:45:Yessica Sykes RN) Dilatation (cm): 3.0 (07/15/2016 15:30:Yessica Sykes RN) Effacement (%): 100 (07/15/2016 17:55:Yessica Sykes RN) Effacement (%): 100 (07/15/2016 17:25:Yessica Sykes RN) Effacement (%): 100 (07/15/2016 16:45:Yessica Sykes RN) Effacement (%): 90 (07/15/2016 15:30:Yessica Sykes RN) Station: 1 (07/15/2016 17:55:Yessica Sykes RN) Station: 0 (07/15/2016 17:25:Yessica Sykes RN) Station: 0 (07/15/2016 16:45:Yessica Sykes RN) Station: 0 (07/15/2016 15:30:Yessica Sykes RN) Membranes Rupture D/ (07/15/2016 17:50:Yessica Skyes RN) ROM Method: Spontaneous (07/15/2016 17:50:Yessica Sykes RN) Amniotic Fluid Color: Bloody (07/15/2016 17:50:Yessica Sykes RN) Amniotic Fluid Amount: Moderate (07/15/2016 17:50:Yessica Sykes RN) Amniotic Fluid Odor: Foul (07/15/2016 17:50:Yessica Sykes RN) Level of Consciousness: Fully Conscious (07/16/2016 07:38:Yessica Sykes RN) DTR's/Clonus: DTRs 2+; No Clonus (07/16/2016 07:38:Yessica Sykes RN) Headache: Denies (07/16/2016 07:38:Yessica Sykes RN) Dizziness: No (07/16/2016 07:38:Yessica Sykes RN) Blurred Vision: No (07/16/2016 07:38:Yessica Sykes RN) Extremity Numbness/Tingling : None (07/16/2016 07:38:Yessica Sykes RN) Extremity Movement: Full Range of Motion (07/16/2016 07:38:Yessica Sykes RN) Heart Rhythm: Regular (07/16/2016 07:38:Yessica Sykes RN) Nailbeds: [place] (07/16/2016 07:38:Yessica Sykes RN) Capillary Refill: Less than 3 Seconds (07/16/2016 07:38:Yessica Sykes RN) Lower Extremities Edema: None (07/16/2016 07:38:Yessica Sykes RN) Lower Extremities Edema Degree: None (07/16/2016 07:38:Yessica Sykes RN) Upper Extremities Edema: None (07/16/2016 07:38:Yessica Sykes RN) Upper Extremities Edema Degree: None (07/16/2016 07:38:Yessica Sykes RN) Facial Edema: None (07/16/2016 07:38:Yessica Sykes RN) Jemal's Sign Left Leg: Negative (07/16/2016 07:38:Yessica Sykes RN) Jemal's Sign Right Leg: Negative (07/16/2016 07:38:Yessica Sykes RN) DVT Risk Age: Age less than 41 years (07/16/2016 07:38:Yessica Sykes RN) DVT Risk BMI: BMI<31 (07/16/2016 07:38:Yessica Sykes RN) DVT Risk Surgery: History of Prior Major Surgery (07/16/2016 07:38:Yessica Sykes RN) DVT Risk Other: Women Only- or (<1 month) (07/16/2016 07:38:Yessica Sykes RN) DVT Risk Total: 2 (07/16/2016 07:38:QS system process) DVT Risk Text: Moderate Risk (10-20%) - Consider stockings, compresssion device, pharmacological therapy per hospital policy (07/16/2016 07:38:QS system process) Respiratory Effort: Unlabored; Regular Rhythm; Equal Expansion (07/16/2016 07:38:Yessica Sykes RN) Breath Sounds, Left: Clear and Equal (07/16/2016 07:38:Yessica Sykes RN) Breath Sounds, Right: Clear and Equal (07/16/2016 07:38:Yessica Sykes RN) Cough Productivity: None (07/16/2016 07:38:Yessica Sykes RN) Nausea/Vomiting: Denies (07/16/2016 07:38:Yessica Sykes RN) Bowel Sounds: Normoactive (07/16/2016 07:38:Yessica Sykes RN) RUQ Epigastric Pain: Denies (07/16/2016 07:38:Yessica Sykes RN) Bowel Patterns: Soft, Formed Stool (07/16/2016 07:38:Yessica Sykes RN) Hemorrhoids: None (07/16/2016 07:38:Yessica Sykes RN) Diet Type: Regular diet (07/16/2016 07:38:Yessica Sykes RN) Bladder: Nondistended (Annotations: patient states she was able to get up and void about 30 minutes ago) (07/16/2016 07:38:Yessica Sykes RN) Frequency of Urination: No (07/16/2016 07:38:Yessica Sykes RN) Urination Burning: No (07/16/2016 07:38:Yessica Sykes RN) CVA Tenderness: No (07/16/2016 07:38:Yessica Sykes RN) Vaginal Discharge Amount: Small (07/16/2016 07:38:Yessica Sykes RN) Vaginal Discharge Color: N/A (Annotations: scant amount of blood, uterus firm, 1 below umbilicus) (07/16/2016 07:38:Yessica Sykes RN) Vaginal Discharge Odor: Non-Odorous (07/16/2016 07:38:Yessica Sykes RN) Vaginal Discharge Character: Thin (07/16/2016 07:38:Yessica Sykes RN) Skin Color: Normal for Race (07/16/2016 07:38:Yessica Sykes RN) Skin Temperature: Warm (07/16/2016 07:38:Yessica Sykes RN) Skin Moisture: Dry (07/16/2016 07:38:Yessica Sykes RN) Domenico Scale Sensory Perception: No Impairment- Responds to verbal commands. Has no sensory deficit which would limit ability to feel or voice pain or discomfort (07/16/2016 07:38:Yessica Sykes RN) Domenico Scale Moisture: Rarely Moist- Skin is usually dry. Linen only requires changing at routine intervals (07/16/2016 07:38:Yessica Sykes RN) Domenico Scale Activity: Walks Frequently- Walks outside the room at least twice a day and inside room at least every 2 hours during the day. (07/16/2016 07:38:Yessica Sykes RN) Domenico Scale Mobility: No Limitations- Makes major and frequent changes in position without assistance (07/16/2016 07:38:Yessica Sykes RN) Domenico Scale Nutrition: Excellent- Eats most of every meal. Never refuses a meal. Usually eats a total of 4 or more servings of meat and dairy products. Occasionally eats between meals. Does not require supplementation (07/16/2016 07:38:Yessica Sykes RN) Domenico Scale Friction and Shear: No Apparent Problem- Moves in bed and in chair independently and has sufficient muscle strength to lift up completely during move. Maintains good position in bed or chair at all times (07/16/2016 07:38:Yessica Sykes RN) Domenico Scale Total: 23 (07/16/2016 07:38:QS system process) Domenico Scale Risk: No Risk of Pressure Ulcer Noted at this Time (07/16/2016 07:38:QS system process) Family Support: Significant Other supportive, at bedside frequently; Family supportive (07/16/2016 07:38:Yessica Sykes RN) Emotional State: Calm/Relaxed (07/16/2016 07:38:Yessica Sykes RN) Call [place] Within Reach: Yes (07/16/2016 07:38:Yessica Sykes RN) Side Rails Up: Yes (07/16/2016 07:38:Yessica Sykes RN) Bed Wheels Locked: Yes (07/16/2016 07:38:Yessica Sykes RN) Arm Bands Present: Yes (07/16/2016 07:38:Yessica Sykes RN) Isolation: [place] (07/16/2016 07:38:Yessica Sykes RN) Fall Risk History of Falling: (0) No (07/16/2016 07:38:Yessica Sykes RN) Fall Risk Secondary Diagnosis: (0) No (07/16/2016 07:38:Yessica Sykes RN) Fall Risk Ambulatory Aid: (0) None/Bedrest/Wheelchair/Nurse Assist (07/16/2016 07:38:Yessica Sykes RN) Fall Risk IV Therapy: (0) No (07/16/2016 07:38:Yessica Sykes RN) Fall Risk Gait: (0) Normal/Bedrest/Immobile (07/16/2016 07:38:Yessica Sykes RN) Fall Risk Mental Status: (0) Oriented to Own Ability (07/16/2016 07:38:Yessica Sykes RN) Fall Risk Score: 0 (07/16/2016 07:38:QS system process) Fall Risk Score Definition: No Risk: No action required (07/16/2016 07:38:QS system process) Recent Exp Communicable Disease: No (07/16/2016 07:38:Yessica Sykes RN) Cough or Fever: No (07/16/2016 07:38:Yessica Sykes RN) Foreign Travel Past 10 Days: No (07/16/2016 07:38:Yessica Sykes RN) Open Wounds or Sores: No (07/16/2016 07:38:Yessica Sykes RN) Prior Antibiotic Resistance Tx: No (07/16/2016 07:38:Yessica Sykes RN) Cultures Obtained: Not Applicable (07/16/2016 07:38:Yessica Sykes RN) Isolation Initiated: No (07/16/2016 07:38:Yessica Sykes RN) Pt/Family Education: Handwashing Hygiene (07/16/2016 07:38:Yessica Sykes RN)
--- NOTE | 2016-07-17 11:54 | Delivery Summary ---
Del Sum A-C Datetime Report Generated by CPN: 07/17/2016 11:53 DELIVERY PERSONNEL DELIVERY PERSONNEL: [id number];[id number];[id number] Delivery Doctor:: Jude Eller CNM Nurse [place] Mechanic Certified:: Kayleigh Doll CNM Labor and Delivery Nurse:: LUIS ALBERTO Kc/MUSIC AUTOGRAPHER: Merry Cotto CNA II MATERNAL INFORMATION Delivery Anesthesia: Epidural Medications After Delivery: Pitocin Bolus-Please Comment Meds After Delivery Comment: 20 units Pitocin in 1L NS bolusing per order Estimated Blood Loss (ml): 50 Maternal Complications: None Provider Comments: Pt. quickly progressed to c/c/1 with urge to push and went on to deliver a baby boy. Baby placed on maternal abdomen per request and cord clamped x2 and cut by FOB. Placenta delivered spontaneously intact with central insertion but with what appeared to be an additional lobe with an extra vessel barely attached to maternal side. Dark bloody fluid present. Minimal blood loss, mother in stable condition, grieving appropiately with family and at bedside. Fundus firm at U-1 bleeding scant. Placenta sent to pathology. Lavelle Doll CNM present. LABOR SUMMARY EDC: 07/24/2016 00:00 No. Babies in Womb: 1 Attempted: No Labor Anesthesia: Epidural LABOR INFORMATION Reason for Induction: Demise Onset of Labor: 07/15/2016 15:30 Complete Dilatation: 07/15/2016 17:55 Cervical Ripening Agents: Cervidil Oxytocin: Induction Group B Beta Strep: negative Antibiotics # of Doses: 0 Antibiotics Time of Last Dose: n/a Steroids Given: None Reason Steroids Not Administered: Not Applicable MEMBRANES Membranes Rupture Method: Spontaneous Rupture of Membranes: 07/15/2016 17:50 Length of Rupture (hr): 0.42 Amniotic Fluid Color: Bloody Amniotic Fluid Amount: Moderate Amniotic Fluid Odor: Foul STAGES OF LABOR Stage 1 hr: 2 Stage 1 min: 25 Stage 2 hr: 0 Stage 2 min: 20 Stage 3 hr: 0 Stage 3 min: 7 Total Time in Labor hr: 2 Total Time in Labor min: 52 VAGINAL DELIVERY Episiotomy: None Laceration Extension: N/A Laceration Type: None Laceration Repair: Not Applicable (Annotations: Data stored by [facility] on behalf of user) Sponge Count Correct: N/A Sharps Count Correct: N/A CSECTION DELIVERY Primary Indication: N/A Secondary Indication: N/A CSection Incidence: N/A Labor: N/A Elective: N/A CSection Incision: N/A BABY A INFORMATION Delivery Date/Time: 07/15/2016 18:15 Method of Delivery: Vaginal Born in Route : No : N/A Forceps: N/A Vacuum Extraction: N/A Shoulder Dystocia : No PRESENTATION/POSITION BABY A Presentation: Cephalic Breech Presentation: N/A PLACENTA INFORMATION BABY A Placenta Delivery Time : 07/15/2016 18:22 Placenta Method of Delivery: Spontaneous Placenta Status: Delivered INFORMATION BABY A Gestational Age at Delivery: 38.5 Gestational Status: Early Term- 37- 38.6 Weeks Outcome : Stillborn (Annotations: Data stored by CPN on behalf of user) Infant Sex: Male WEIGHT/LENGTH BABY A Infant Birthweight (gm): 3483 Infant Weight (lb): 7 Weight (oz): 11 CORD INFORMATION BABY A No. Cord Vessels: 3 Nuchal Cord : N/A Cord Blood Taken: No-Annotate Suction: None BABY B INFORMATION : N/A SIGNATURES Assignment: Addis Sykes MD Signature: with User ID: [email or web address] : with User ID: Herbert
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
--- NOTE | 2016-07-17 18:02 | L&D Current Admission ---
Current Admit Datetime Report Generated by CPN: 07/17/2016 18:00 ADMISSION INFORMATION Chief Complaint: IUFD (07/14/2016 19:30:Kentrell Augustine RN)
--- NOTE | 2016-07-17 18:02 | L&D General Admission ---
General Admit Datetime Report Generated by CPN: 07/17/2016 18:00 INFORMATION Patient Age: 25 (06/12/2016 15:08:QS system process) EDC: 07/24/2016 00:00 (07/14/2016 18:57:SAW Mclain) : 2 (07/14/2016 18:57:SAW Mclain) Para: 0 (07/14/2016 18:57:SAW Mclain) Term: 0 (07/14/2016 18:57:SAW Mclain) : 0 (07/14/2016 18:57:SAW Mclain) Spontaneous Abortions: 1 (07/14/2016 18:57:SAW Mclain) Induced Abortions: 0 (07/14/2016 18:57:SAW Mclain) Livin (07/14/2016 18:57:SAW Mclain) Cesareans: 0 (07/14/2016 18:57:SAW Mclain) VBACs: 0 (07/14/2016 18:57:SAW Mclain) Ectopic: 0 (07/14/2016 18:57:SAW Mclain) Multiple Births: 0 (07/14/2016 18:57:SAW Mclain) Baby, Number in Womb: 1 (07/14/2016 18:57:SAW Mclain) CARE Primary Hydrotreater Operator: [facility] (07/14/2016 18:57:SAW Mclain) Adequate Care: Yes (07/14/2016 18:57:SAW Mclain) Prepregnancy Weight (lb): 155 (07/14/2016 18:57:SAW Mclain) Prepregnancy Weight (kg): 70.5 (07/14/2016 18:57:QS system process) Height (in): 68 (07/16/2016 09:26:QS system process) ALLERGIES Medication Allergy: Yes (07/14/2016 18:57:SAW Mclain) Medication Allergies: penicillin G (07/14/2016); latex (07/14/2016) (07/14/2016 18:59:QS system process) Latex Allergy: Latex Allergies (07/14/2016 18:57:Mariah Rodriguez RN) COMMUNICATION Primary Language: [place] (07/14/2016 18:57:SAW Mclain) DEMOGRAPHICS Address: [facility] [place] [address] (07/14/2016 10:39:QS system process) Zipcode: [address] (06/12/2016 15:08:QS system process) Home (06/12/2016 15:08:QS system process) SSN: [id number] (06/12/2016 15:08:QS system process) Next of Kin Name: CHOLO ELIZALDE (06/12/2016 15:08:QS system process) Next of Kin (06/12/2016 15:08:QS system process) Next of Kin Relationship: SPO (06/12/2016 15:08:QS system process) Date of : 1990 (06/12/2016 15:08:QS system process) Marital Status: (06/12/2016 15:08:QS system process) Sex: Female (06/12/2016 15:08:QS system process) Race: (06/12/2016 15:08:QS system process) Ethnicity: Non- or (06/12/2016 15:08:QS system process) Buddhism: None (06/12/2016 15:08:QS system process) FOB Involved: Yes (07/14/2016 18:57:Josephine Christensen RN) Father of Baby Name: Cholo Elizalde (07/14/2016 18:57:Josephine Christensen RN) LABS Blood Type: AB Positive (07/14/2016 18:57:Vero Oh RN) Antibody Screen: negative (07/14/2016 18:57:Vero Oh RN) Hemoglobin: 10.4 L (07/16/2016 06:52:QS system process) Hematocrit: 30.9 L (07/16/2016 06:52:QS system process) MCV: 79 L (07/16/2016 06:52:QS system process) Group Beta Strep: negative (07/14/2016 18:57:Vero Oh RN) Gonorrhea: Negative (07/14/2016 18:57:Vero Oh RN) Chlamydia: Negative (07/14/2016 18:57:Vero Oh RN) RPR/VDRL: Nonreactive (07/14/2016 18:57:Vero Oh RN) HIV Exposure Test: Negative (07/14/2016 18:57:Vero Oh RN) Hepatitis B: Negative (07/14/2016 18:57:Vero Oh RN) Rubella: Immune (07/14/2016 18:57:Vero Oh RN)
--- NOTE | 2016-07-17 20:02 | L&D Flow Sheet ---
LD Flowsheet Datetime Report Generated by CPN: 07/17/2016 20:00 Datetime: 07/16/2016 09:42 Temperature (C): 36.9 (QS system process) Datetime: 07/15/2016 18:04 Temperature (C): 37.4 (QS system process) LaborFlag: Labor (QS system process) Datetime: 07/15/2016 17:29 LaborFlag: Labor (QS system process) Datetime: 07/15/2016 17:15 LaborFlag: Labor (QS system process) Datetime: 07/15/2016 16:59 LaborFlag: Labor (QS system process) Datetime: 07/15/2016 16:35 LaborFlag: Labor (QS system process) Datetime: 07/15/2016 16:30 LaborFlag: Labor (QS system process) Datetime: 07/15/2016 16:29 LaborFlag: Labor (QS system process) Datetime: 07/15/2016 16:28 LaborFlag: Labor (QS system process) Datetime: 07/15/2016 16:25 LaborFlag: Labor (QS system process) Datetime: 07/15/2016 16:20 LaborFlag: Labor (QS system process) Datetime: 07/15/2016 14:25 LaborFlag: Labor (QS system process) Datetime: 07/15/2016 13:13 LaborFlag: Labor (QS system process) Datetime: 07/15/2016 11:49 LaborFlag: Labor (QS system process) Datetime: 07/15/2016 11:48 Temperature (C): 36.7 (QS system process) LaborFlag: Labor (QS system process) Datetime: 07/15/2016 09:18 LaborFlag: Labor (QS system process) Datetime: 07/15/2016 08:11 Temperature (C): 37.2 (QS system process) LaborFlag: Labor (QS system process) Datetime: 07/15/2016 07:55 LaborFlag: Labor (QS system process)
[2016-07-18 12:42] LABS: ANTITHROMBIN III ACTIVITY 105 % (75-135)
[2016-07-20 13:22] LABS: PROTHROMBIN IGG AB 2 G units (0-20)
== END 2016-07-16 14:00 | disposition home or self-care (01) | DRG 774 ==
LOC: LC 09:43 → LR 21:02 → EDSTATUS 07-26 11:03
PROVIDERS: ADMIT Obstetrics & Gynecology; ATTEND Obstetrics & Gynecology
PROC: 10E0XZZ Delivery of Products of Conception, External Approach (ICD-10-PCS; principal; 2016-07-15)
PROC: 3E0P7GC Introduction of Other Therapeutic Substance into Female Reproductive, Via Natural or Artificial Opening (ICD-10-PCS; 2016-07-15)
DX: O36.4XX0 Maternal care for intrauterine death, not applicable or unspecified (principal); O98.32 Other infections with a predominantly sexual mode of transmission complicating childbirth; O62.3 Precipitate labor; O75.89 Other specified complications of labor and delivery; O99.344 Other mental disorders complicating childbirth; F32.9 Major depressive disorder, single episode, unspecified; A60.00 Herpesviral infection of urogenital system, unspecified; O43.193 Other malformation of placenta, third trimester; F43.20 Adjustment disorder, unspecified; Z3A.38 38 weeks gestation of pregnancy; Z37.1 Single stillbirth
CPT/HCPCS: 36415; 80307; 81005; 81241; 85025; 85027; 85300; 85301; 85460; 85597; 85598; 85613; 85730; 85732; 86146; 86147; 86148; 86592; 86849; 86850; 86900; 86901; 88307; J2300; J2370; J2405; J2550; J2590; J3010; J3490

== ENCOUNTER → 2016-07-14 | Outpatient (CLI) | payer OTHER ==
[~2016-07-14] MED LIST: DINOPROSTONE 10 MG VAGINAL INSERT.SR ONE; MISOPROSTOL 0.1 MG TABLET ONE
--- NOTE | 2016-07-14 20:01 | L&D Flow Sheet ---
LD Flowsheet Datetime Report Generated by CPN: 07/14/2016 20:00 Datetime: 07/14/2016 19:36 NBP Sys/Venus/Mean (mmHg): 132 (QS system process) : 76 (QS system process) : 98 (QS system process) Pulse: 92 (QS system process) LaborFlag: Labor (QS system process) Datetime: 07/14/2016 19:30 Pain Pain Scale: 0 (Kentrell Augustine, LUIS ALBERTO) Pain Presence: None/Denies (Kentrell Augustine, RN) Pain Type: N/A (Kentrell Augustine, RN) Vaginal Exam Vaginal Bleeding: None (Kentrell Augustine, LUIS ALBERTO) Maternal Assessment Level of Consciousness: Fully Conscious (Kentrell Augustine, LUIS ALBERTO) DTR's/Clonus: DTRs 2+; No Clonus (Kentrell Augustine, LUIS ALBERTO) Headache: Generalized (Kentrell Augustine, LUIS ALBERTO) Breath Sounds, Left: Clear and Equal (Kentrell Augustine, LUIS ALBERTO) Breath Sounds, Right: Clear and Equal (Kentrell Augustine, RN) Nausea/Vomiting: Present (Annotations: Had some nausea earlier today ) (Kentrell Mijaresford, RN) RUQ Epigastric Pain: Denies (Kentrell Mijaresford, RN) LaborFlag: Labor (QS system process) Datetime: 07/14/2016 18:37 Temperature (F): 98.4 (Ivone Ramos, RN) Temperature (C): 36.9 (QS system process) LaborFlag: Labor (QS system process) Datetime: 07/14/2016 18:36 Vital Signs Stage of : Labor (Ivone Rachel, RN) NBP Sys/Venus/Mean (mmHg): 126 (QS system process) : 83 (QS system process) : 100 (QS system process) Pulse: 93 (QS system process) Patient Care IV/Blood Work: IV Started; IV Bolus Started (Ivone Ramos, RN) Patient Care Comments: 18 g placed to R FA, pt tolerated well, LR bolus started at this time (Ivone Ramos, RN) LaborFlag: Labor (QS system process) Datetime: 07/14/2016 10:50 Communication Additional Nursing Comments: Pt physically left L_D ambulatory in stable condition with at side, with no needs or complaints, and with order to return to L_D when ready and prepared for IOL. (Mariahzeny Rodriguez, RNC) Datetime: 07/14/2016 10:15 Communication Additional Nursing Comments: Pt and informed RN and CNM the desire to go home. Order for d/c home received from [facility] CN. (Mariah Rodriguez, RNC) Datetime: 07/14/2016 09:50 Communication Additional Nursing Comments: J Juarez CNM at BS, discussing with pt and options and POC for IOL. Both verbalized understanding and agreement and stated desire to talk it over. (Mariah Rodriguez, RNC) Datetime: 07/14/2016 09:45 Communication Additional Nursing Comments: arrived to L_D. (Mariah Rodriguez, RNC) Datetime: 07/14/2016 09:30 Communication Additional Nursing Comments: Pt arrived to L_D ambulatory with H Lavon CNM at side for IOL for IUFD. (SAW Mclain)
--- NOTE | 2016-07-15 08:11 | L&D Progress Notes ---
PROGRESS NOTES Datetime Report Generated by CPN: 07/15/2016 08:11 PROGRESS NOTE Impression Other: IOL-stable Procedures: Sterile Vag Exam Plan: Continue Present Management; Induction Informed Consent Obtained: Vaginal Delivery; Induction of Labor; Risks, Benefits and Alternatives Discussed Vital Signs : Reviewed; Within Normal Limits Comment: S: reports inc lower abdominal and back pain. Rating pain 3/5, desires IV pain medication at this time. Mother and father in law have arrived and at bedside as well as O: VSS, cervix as stated above A: IOL secondary to demise-stable, progressing well P: nubain and phenergan IV for pain now, start pitocin 2 by 2 by 30min. Pt. continues to desire slow progression of induction coping as well as possible. Support information provided. Report given to incoming providers. VAGINAL EXAM Dilatation: 2 Dilatation: 1 Effacement: 70 Effacement: 30 (Annotations: Data stored by CPN on behalf of user) Station: -2 Station: -2 Contractions: irregular Contractions: none MEMBRANES Membranes: Intact FETUS A : 38.4 Estimated Weight (gm): 3300 Presentation: Vertex SIGNATURE SIGNATURE: [id number] Assignment: French Domínguez MD Signature: with User ID: Herbert : with User ID: Herbert
== END ==
LOC: LC 18:35 → UNDOADMIN 20:40 → LR 20:40
PROVIDERS: ATTEND Specialist
DX: O36.4XX0 Maternal care for intrauterine death, not applicable or unspecified (principal); Z3A.38 38 weeks gestation of pregnancy
CPT/HCPCS: J3490

== ENCOUNTER → 2016-09-14 | Outpatient (CLI) | payer OTHER ==
[2016-09-14 15:41] LABS: THYROID STIMULATING HORMONE 0.2 uIU/mL (0.47-4.68)
[2016-09-16 06:39] LABS: THYROID PEROXIDASE (TPO) AB 15 IU/mL (0-34)
[2016-09-16 07:27] LABS: THYROGLOBULIN AB <1.0 IU/mL (0.0-0.9)
[2016-09-17 07:09] LABS: CYCLIC CITRUL PEPTIDE IGG/A AB 3 units (0-19)
[2016-09-28 07:17] LABS: THYROID STIM IMMUNOGLOBULIN 65 % (0-139)
== END ==
LOC: OD 13:24
PROVIDERS: ATTEND Obstetrics & Gynecology
DX: E03.9 Hypothyroidism, unspecified (principal)
CPT/HCPCS: 36415; 83519; 84439; 84443; 84480; 85652; 86200; 86376; 86430

== ENCOUNTER → 2017-03-17 | Outpatient (CLI) | payer OTHER | LOC: OD 15:51 | PROVIDERS: ATTEND Obstetrics & Gynecology | DX: Z34.90 Encounter for supervision of normal pregnancy, unspecified, unspecified trimester (principal) | CPT/HCPCS: 36415; 84702 ==

== ENCOUNTER 2017-04-16 06:39 | Day surgery (SDC) | payer OTHER ==
[2017-04-16] MEDS ORDERED: KETAMINE HCL INJ 500 MG/10 ML VIAL ONE (07:00)
[2017-04-16] MEDS ORDERED: MIDAZOLAM 2 MG/2 ML INJ ONE ×2 (07:01→09:03)
[2017-04-16] MEDS ORDERED: PROPOFOL INJ 200 MG/20 ML VIAL IV ONE (07:01)
[2017-04-16] MEDS ORDERED: FENTANYL CITRATE INJ/PF 100 MCG/2 ML AMPUL ONE (07:01)
[2017-04-16] MEDS ORDERED: EPHEDRINE SULFATE INJ 50 MG/1 ML AMPULE ONE (07:01)
[2017-04-16] MEDS ORDERED: ACETAMINOPHEN 100 ML IV ONE (07:01)
[2017-04-16] MEDS ORDERED: DOXYCYCLINE HYCLATE 100 MG in DEXTROSE 5%-WATER 250 ML IV PRN (07:21)
[2017-04-16] MEDS ORDERED: METHYLERGONOVINE MALEATE INJ/PF 0.2 MG/1 ML AMPULE ONE (07:23)
[2017-04-16] MEDS ORDERED: LIDOCAINE 1% INJ-PF (10 MG/ML) 30 ML SDV ONE (07:23)
[2017-04-16 07:39] LABS: HEMATOCRIT 39.1 % (36.0-47.0); HEMOGLOBIN 13.2 g/dL (12.0-15.5); MEAN CORPUSCULAR HEMOGLOBIN 27.1 pg (27.0-33.4); MEAN CORPUSCULAR HGB CONC 33.7 g/dL (32.0-36.0); MEAN CORPUSCULAR VOLUME 80 fl (80-97); PLATELET COUNT 273 10^3/uL (150-450); RED BLOOD COUNT 4.87 10^6/uL (3.72-5.28); RED CELL DISTRIBUTION WIDTH 14.5 % (11.5-14.0); WHITE BLOOD COUNT 8.1 10^3/uL (4.0-10.5)
[2017-04-16 07:47] LABS: AMORPHOUS SEDIMENT,URINE TRACE /HPF; APPEARANCE,URINE CLOUDY; BILIRUBIN,URINE NEGATIVE (NEGATIVE); COLOR,URINE YELLOW; GLUCOSE, URINE NEGATIVE (NEGATIVE); KETONES,URINE NEGATIVE (NEGATIVE); LEUKOCYTE ESTERASE,URINE NEGATIVE (NEGATIVE); NITRITE,URINE NEGATIVE (NEGATIVE); PROTEIN,URINE NEGATIVE (NEGATIVE); URINE SPECIFIC GRAVITY 1.019
[2017-04-16] MEDS ORDERED: SCOPOLAMINE HYDROBROMIDE 1.5 MG PATCH.TD72 ONE (08:13)
[2017-04-16] MEDS ORDERED: PROMETHAZINE HCL INJ 25 MG/1 ML VIAL IV PRN ×2 (08:38)
[2017-04-16] MEDS ORDERED: ONDANSETRON HCL INJ/PF 4 MG/2 ML SDV IV PRN ×2 (08:38→09:54)
[2017-04-16] MEDS ORDERED: MEPERIDINE HCL/PF INJ 25 MG/1 ML DISP.SYRIN IV PRN (08:38)
[2017-04-16] MEDS ORDERED: MORPHINE SULFATE 10 MG/ML INJ IV PRN (08:38)
[2017-04-16] MEDS ORDERED: DIPHENHYDRAMINE HCL 50 MG/ML VIAL IV PRN (08:38)
[2017-04-16] MEDS ORDERED: FENTANYL CITRATE INJ/PF 100 MCG/2 ML AMPUL IV PRN ×3 (08:38)
[2017-04-16] MEDS ORDERED: OXYCODONE-ACETAMINOPHEN 5-325 MG TABLET PO PRN ×2 (10:01)
[2017-04-16] MEDS ORDERED: RINGERS SOLUTION,LACTATED 1,000 ML IV PRN (10:01)
[2017-04-16] MEDS ORDERED: IBUPROFEN 800 MG TABLET PO PRN (10:01)
[2017-04-16] MEDS ORDERED: HYDROMORPHONE HCL INJ/PF 2 MG/ML AMPULE INJ PRN (10:09)
[2017-04-16 10:15] LABS: CHLAM PCR NOT DETECTED (NOT DETECT); GON PCR NOT DETECTED (NOT DETECT)
[2017-04-16] MEDS ORDERED: KETOROLAC TROMETHAMINE 60 MG/2 ML SDV ONE (10:40)
[2017-04-16] MEDS ORDERED: GLYCOPYRROLATE INJ 0.4 MG/2 ML VIAL ONE (10:40)
[2017-04-16] MEDS ORDERED: LIDOCAINE 2% INJ-PF (20 MG/ML) 2 ML AMPUL ONE (10:40)
[2017-04-16] MEDS ORDERED: DEXAMETHASONE SOD PHOSPHATE INJ 4 MG/1 ML VIAL ONE (10:40)
[2017-04-16] MEDS ORDERED: ONDANSETRON HCL INJ/PF 4 MG/2 ML SDV ONE (10:40)
[2017-04-16] MEDS ORDERED: METOCLOPRAMIDE HCL INJ/PF 10 MG/2 ML SDV ONE (10:40)
[2017-04-16 11:11] VITALS: BP 112/62
--- NOTE | 2017-04-18 17:11 | Operative Report ---
Operative Report DATE OF SURGERY: 04/16/17 PREOPERATIVE DIAGNOSIS: Missed AB at 7wks ega POSTOPERATIVE DIAGNOSIS: APARNA OPERATION: EUA, Paracervical Block, Suction D&C SURGEON: CIERA BROWN ANESTHESIA: LMAC TISSUE REMOVED OR ALTERED: POC COMPLICATIONS: None ESTIMATED BLOOD LOSS: 30ml INTRAOPERATIVE FINDINGS: moderate products of conception, 8wk AV uterus, mobile uterus, no adnexal masses PROCEDURE: Anesthesia: [Devang HANSON] Anesthesia: LMAC EBL: [30ml] IVF: [700ml] UOP: [50ml] Specimens: Products of conception Complications: None Indications: [26yo at approx 7 weeks presents with no FHTs for 1 week (on 2 separate ultrasounds). She was counseled in the office and desires Suction D&C for management of missed . The risks, benefits, alternatives were reviewed with the patient and she desires to proceed with planned procedure.] Procedure: The patient was taken to the Operating Room where general anesthesia was obtained without difficulty. She was prepped and draped in the normal sterile fashion in the dorsal lithotomy position. Exam under anesthesia was performed and noted above. A speculum was placed in the vagina. The anterior cervix was grasped with a single-tooth tenaculum and the uterus sounded to [ 8.5cm] after paracervical block was performed with 8 mL of 1% lidocaine with epinephrine. The cervix was noted to be closed at the beginning of the procedure. Sequential dilators were then used to dilate the cervix to accommodate the the 8 mm suction curet curved. The 8 mm curved suction curet was gently advanced in the usual fashion and good return of tissue. The suction device was then activated and the curet rotated to clear the uterus of the products of conception. A sharp curettage was then performed. The suction device was then gently reintroduced and activated and the curet rotated to clear the uterus of conception which was loosened with recent sharp curettage. The sharp curettage was then performed again until a gritty texture was noted and the cavity was felt to be empty of further tissue. At this time there was minimal bleeding noted from the cervix. All instruments were removed from the patient's cervix and vagina. Silver nitrate was applied to the tenaculum site for hemostasis. Sponge lap needle and instrument counts are correct 2. Doxycycline 100 mg IV was given perioperatively. The patient tolerated the procedure well and was taken to the recovery area awake and in stable condition. The patient was discharged home with pain medications as well as by mouth Methergine.
== END 2017-04-16 11:13 | disposition home or self-care (01) ==
LOC: OROUT 06:39
PROVIDERS: ATTEND Student in an Organized Health Care Education/Training Program
PROC: 10D17ZZ Extraction of Products of Conception, Retained, Via Natural or Artificial Opening (ICD-10-PCS; principal; 2017-04-16 08:30)
DX: O02.1 Missed abortion (principal); Z79.899 Other long term (current) drug therapy; F32.9 Major depressive disorder, single episode, unspecified
CPT/HCPCS: 36415; 85027; 81001; 87491; 87591; 88305 ×2; 59820; J2250; J1100; J3490 ×4; J1885; J3010; J2765; J2405; J7060; J2704; J0131; 1965; J2210

== ENCOUNTER 2018-01-28 08:21 | Outpatient (CLI) | payer OTHER ==
[2018-01-28 09:12] LABS: APPEARANCE,URINE SLIGHTLY-CLOUDY; BILIRUBIN,URINE NEGATIVE (NEGATIVE); COLOR,URINE YELLOW; GLUCOSE, URINE NEGATIVE (NEGATIVE); KETONES,URINE NEGATIVE (NEGATIVE); LEUKOCYTE ESTERASE,URINE TRACE (NEGATIVE); NITRITE,URINE NEGATIVE (NEGATIVE); PROTEIN,URINE NEGATIVE (NEGATIVE); URINE SPECIFIC GRAVITY 1.011; UROBILINOGEN,URINE NEGATIVE mg/dL (<2.0)
[2018-01-28 09:21] LABS: URINE AMPHETAMINES SCREEN NEGATIVE; URINE BARBITURATES SCREEN NEGATIVE; URINE BENZODIAZEPINES SCREEN NEGATIVE; URINE COCAINE SCREEN NEGATIVE; URINE MARIJUANA (THC) SCREEN NEGATIVE; URINE METHADONE SCREEN NEGATIVE; URINE PHENCYCLIDINE SCREEN NEGATIVE
[2018-01-28] MEDS ORDERED: ACETAMINOPHEN 325 MG TABLET ONE (09:44)
--- NOTE | 2018-01-28 11:43 | Non Stress Test Report ---
Non Stress Test Datetime Report Generated by CPN: 01/28/2018 11:43 DEMOGRAPHIC EGA NST: 33.2 INDICATION Indication for Study: Other Indication for Study (NST) Other: post fall MONITORING Monitor Explained: Monitor Explained; Test Explained; Patient Verbalized Understanding Time on Monitor: 01/28/2018 09:00 Time off Monitor: 01/28/2018 11:17 NST Duration: 137 NST INTERVENTIONS NST Interventions: PO Hydration; Reposition Patient Physician Notified NST: Dr Domínguez BABY A: [id number] BABY A Movement : Present Contraction Frequency : 0 FHR Baseline : 145 Accelerations : 15X15 Decelerations : None Variability : Moderate 6-25bpm NST Review: Meets Criteria for Reactive NST NST Review and Verified By : LUIS ALBERTO Martínez Results: Reactive NST REPORT Report Trigger: Send Report
== END 2018-01-28 11:20 | disposition home or self-care (01) ==
LOC: LC 08:21
PROVIDERS: ATTEND Obstetrics & Gynecology
PROC: 4A1HXCZ Monitoring of Products of Conception, Cardiac Rate, External Approach (ICD-10-PCS; principal; 2018-01-28)
DX: Z36.89 Encounter for other specified antenatal screening (principal); Z3A.33 33 weeks gestation of pregnancy; Z91.81 History of falling
CPT/HCPCS: 59025; 80307; 81001

== ENCOUNTER 2018-02-22 19:48 | Inpatient (IN) | payer OTHER ==
[2018-02-22] MEDS ORDERED: RINGERS SOLUTION,LACTATED 300 ML IV ONE (20:16)
[2018-02-22] MEDS ORDERED: RINGERS SOLUTION,LACTATED 1,000 ML IV PRN (20:16)
[2018-02-22] MEDS ORDERED: OXYTOCIN/NORMAL SALINE 20 UNIT/1,000 ML RTUINJ IV PRN (20:16)
[2018-02-22] MEDS ORDERED: RINGERS SOLUTION,LACTATED 1,000 ML IV ONE (20:16)
[2018-02-22 21:04] LABS: ABSOLUTE EOSINOPHILS # (AUTO) 0.1 10^3/uL (0.0-0.6); ABSOLUTE LYMPHOCYTES (AUTO) 2.4 10^3/uL (0.5-4.7); ABSOLUTE MONOCYTES (AUTO) 0.7 10^3/uL (0.1-1.4); ABSOLUTE NEUT (AUTO) 7.2 10^3/uL (1.7-8.2); BASOPHILS % (AUTO) 0.2 % (0-2); EOSINOPHILS % (AUTO) 0.9 % (0-6); MEAN CORPUSCULAR HEMOGLOBIN 28.2 pg (27.0-33.4); MEAN CORPUSCULAR HGB CONC 34.3 g/dL (32.0-36.0); MEAN CORPUSCULAR VOLUME 82 fl (80-97); MONOCYTES % (AUTO) 6.9 % (3-13); PLATELET COUNT 202 10^3/uL (150-450); RED BLOOD COUNT 4.26 10^6/uL (3.72-5.28); RED CELL DISTRIBUTION WIDTH 18.1 % (11.5-14.0); TOTAL CELLS COUNTED % (AUTO) 100 %; WHITE BLOOD COUNT 10.5 10^3/uL (4.0-10.5)
[2018-02-22 21:07] LABS: APPEARANCE,URINE SLIGHTLY-CLOUDY; BILIRUBIN,URINE NEGATIVE (NEGATIVE); COLOR,URINE YELLOW; GLUCOSE, URINE NEGATIVE (NEGATIVE); KETONES,URINE NEGATIVE (NEGATIVE); LEUKOCYTE ESTERASE,URINE NEGATIVE (NEGATIVE); NITRITE,URINE NEGATIVE (NEGATIVE); PROTEIN,URINE NEGATIVE (NEGATIVE); URINE SPECIFIC GRAVITY 1.011; UROBILINOGEN,URINE NEGATIVE mg/dL (<2.0)
[2018-02-22] MEDS ORDERED: OXYTOCIN/NORMAL SALINE 20 UNIT/1,000 ML RTUINJ ONE (21:32)
[2018-02-22 21:38] LABS: URINE AMPHETAMINES SCREEN NEGATIVE; URINE BARBITURATES SCREEN NEGATIVE; URINE BENZODIAZEPINES SCREEN NEGATIVE; URINE COCAINE SCREEN NEGATIVE; URINE MARIJUANA (THC) SCREEN NEGATIVE; URINE METHADONE SCREEN NEGATIVE; URINE PHENCYCLIDINE SCREEN NEGATIVE
[2018-02-22] MEDS: RINGERS SOLUTION,LACTATED 1,000 ML IV PRN (21:50)
[2018-02-23] MEDS ORDERED: NALBUPHINE HCL INJ 10 MG/1 ML AMPULE INJ ONE (01:35)
[2018-02-23] MEDS ORDERED: NALBUPHINE HCL INJ 10 MG/1 ML AMPULE ONE ×2 (01:36→09:38)
[2018-02-23] MEDS ORDERED: LIDOCAINE 1% INJ-PF (10 MG/ML) 30 ML SDV ONE (04:34)
[2018-02-23] MEDS ORDERED: MISOPROSTOL 0.2 MG TABLET ONE (04:34)
[2018-02-23] MEDS: RINGERS SOLUTION,LACTATED 1,000 ML IV PRN ×2 (06:26→11:20)
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
[2018-02-23] MEDS ORDERED: PROMETHAZINE HCL INJ 25 MG/1 ML VIAL ONE (09:38)
[2018-02-23] MEDS ORDERED: BUPIVACAINE HCL 0.5 % INJ/PF 30 ML SDV ONE (10:15)
[2018-02-23] MEDS ORDERED: FENTANYL/BUPIVACAINE/NS/PF 300 MCG/150 ML RTUINJ EPI ONE (10:15)
[2018-02-23] MEDS ORDERED: EPHEDRINE SULFATE INJ 50 MG/1 ML AMPULE ONE (10:15)
[2018-02-23] MEDS ORDERED: ACETAMINOPHEN 325 MG TABLET ONE (11:42)
[2018-02-23] MEDS ORDERED: ACETAMINOPHEN 325 MG TABLET PO PRN (11:47)
[2018-02-23] MEDS ORDERED: LIDOCAINE 2% INJ-PF (20 MG/ML) 10 ML AMPUL ONE (13:03)
--- NOTE | 2018-02-23 13:07 | L&D Progress Notes ---
PROGRESS NOTES Datetime Report Generated by CPN: 02/23/2018 13:06 PROGRESS NOTE Impression Other: IUP @37w Procedures: Intrauterine Pressure Catheter; Scalp Electrode; Sterile Vag Exam Plan: Continue Present Management; Induction Informed Consent Obtained: Vaginal Delivery; Induction of Labor; Risks, Benefits and Alternatives Discussed Informed Consent Obtained: Vaginal Delivery; Induction of Labor; Risks, Benefits and Alternatives Discussed Vital Signs : Reviewed; Within Normal Limits Vital Signs Comments: some elevated bps prior and during epidural placement along with headache- tylenol given for headache at that time Comment: S: pt continues to brethe through contractions, some relief of pain with epidural placement O: VSS, cervix as stated, pit @6mu/min A: IUP @ 37w IOL for CHTN with possible super-impossed pre-e, Hx of IUFD at 38w- stable, head asynclitic, no much progress with the last two checks, IUPC and FSE placed without difficulty, moderate mec with bloody show present P:continue present management with position changes will reasses in 2hrs or earlier as clinically indicated VAGINAL EXAM Dilatation: 2 Effacement: 50 Station: -2 Contractions: irreg LAST VAGINAL EXAM-NURSING Dilitation: 6.0 Dilitation: 6.5 Dilitation: 6.5 Dilitation: 5.0 Dilitation: 2.0 Dilitation: 2.0 Effacement: 100 Effacement: 80 Effacement: 80 Effacement: 70 Effacement: 50 Effacement: 50 Station: -2 Station: -2 Station: 2 Station: -2 Station: -2 Contractions: UTD contraction pattern due to patient position, RN at bedside adjusting monitors, uterus relaxed between contractions Contractions: UTD contraction pattern due to patient sitting for epidural, RN at bedside Contractions: RN @ bedside, attempting to trace ctx's, adjusting [place]. Contractions: RN adjusting [place]. Contractions: RN @ bedside adjusting [place], palpating ctx's. Contractions: RN @ bedside adjusting [place], palpating ctx's. Contractions: states no longer feeling [facility] Membranes: Ruptured Membranes: Intact Amniotic Fluid Color: Meconium, Light FETUS A Monitoring: Internal Scalp Electrode Variability: Moderate 6-25bpm Accelerations: 15X15 Decelerations: Early; Late; Variable FHR Category: Category II FHR Comments: position changes Presentation: Vertex SIGNATURE SIGNATURE: [id number] SIGNATURE: [id number] SIGNATURE: [id number] Assignment: French Domínguez MD Signature: with User ID: [email or web address] : with User ID: [email or web address]
--- NOTE | 2018-02-23 13:26 | L&D Progress Notes ---
PROGRESS NOTES Datetime Report Generated by CPN: 02/23/2018 13:26 PROGRESS NOTE Impression: Normal Progression of Labor Procedures: Sterile Vag Exam Plan: Continue Present Management Informed Consent Obtained: Vaginal Delivery; Risks, Benefits and Alternatives Discussed Vital Signs : Reviewed; Within Normal Limits Comment: S: reports increased vaginal pain and pressure with and without contractions, epidural redosed by dr. Sosa O:vss, cervix 8/c/-1 no longer asynclitic, pit @6mu/min A: IUP @ 37w-stable, progressing P: continue present management, anticpate delivery FETUS A Monitoring: Internal Scalp Electrode FHR Category: Category II FETUS C SIGNATURE: [id number];[id number];[id number] Assignment: French Domínguez MD Signature: with User ID: Herbert : with User ID: Herbert
[2018-02-23] MEDS ORDERED: OXYTOCIN/NORMAL SALINE 20 UNIT/1,000 ML RTUINJ ONE (13:39)
--- NOTE | 2018-02-23 14:50 | Warning Signs in Babies ---
VOD Warning Signs Datetime Report Generated by [facility]: 02/23/2018 14:49 VOD#608 -Warning Signs in Babies: Needs to be viewed. (02/23/2018 14:38:Yessica Sykes RN)
[2018-02-23] MEDS ORDERED: OXYTOCIN/NORMAL SALINE 1,000 ML IV PRN (16:57)
[2018-02-23] MEDS ORDERED: ACETAMINOPHEN WITH CODEINE #3 TABLET PO PRN (16:57)
[2018-02-23] MEDS ORDERED: BENZOCAINE/MENTHOL AEROSOL SPRAY 56 ML TOP PRN (16:57)
[2018-02-23] MEDS ORDERED: ZOLPIDEM TARTRATE 5 MG TABLET PO PRN (16:57)
[2018-02-23] MEDS ORDERED: DIPH/PERTUSS(ACELL)/TETANUS VAC/PF 0.5 ML SYR (>=10YO) IM PRN (16:57)
[2018-02-23] MEDS ORDERED: MEASLES,MUMPS&RUBELLA VACC/PF 0.5 ML VIAL SUBCUT PRN (16:57)
[2018-02-23] MEDS ORDERED: DIBUCAINE 1% OINTMENT 28 GM TP PRN (16:57)
[2018-02-23] MEDS: DOCUSATE SODIUM 100 MG CAPSULE PO SCH (17:56)
[2018-02-23] MEDS: FERROUS SULFATE 325 MG TABLET PO SCH (17:56)
[2018-02-23] MEDS: ACETAMINOPHEN WITH CODEINE #3 TABLET PO PRN (19:20)
[2018-02-23] MEDS: IBUPROFEN 800 MG TABLET PO SCH (21:51)
[2018-02-24] MEDS: IBUPROFEN 800 MG TABLET PO SCH ×3 (05:39→21:23)
[2018-02-24 07:37] LABS: HEMATOCRIT 31.3 % (36.0-47.0); HEMOGLOBIN 10.7 g/dL (12.0-15.5); MEAN CORPUSCULAR HEMOGLOBIN 28.1 pg (27.0-33.4); MEAN CORPUSCULAR HGB CONC 34.1 g/dL (32.0-36.0); MEAN CORPUSCULAR VOLUME 83 fl (80-97); PLATELET COUNT 165 10^3/uL (150-450); RED BLOOD COUNT 3.79 10^6/uL (3.72-5.28); RED CELL DISTRIBUTION WIDTH 18.9 % (11.5-14.0); WHITE BLOOD COUNT 13.9 10^3/uL (4.0-10.5)
[2018-02-24] MEDS: PRENATAL VITAMIN W DHA CAPSULE PO SCH (09:33)
[2018-02-24] MEDS: SENNOSIDES/DOCUSATE 8.6-50 MG 1 EACH TABLET PO SCH (09:33)
[2018-02-24] MEDS: FERROUS SULFATE 325 MG TABLET PO SCH ×2 (09:33→17:36)
[2018-02-24] MEDS: DOCUSATE SODIUM 100 MG CAPSULE PO SCH ×2 (09:33→17:36)
--- NOTE | 2018-02-24 10:55 | PDOC PROGRESS REPORT ---
Subjective-OB Progress Note for:: 02/24/18 Subjective: reports bleeding slowing, pain controlled with current meds, denies needs Physical Exam (OB) Vital Signs: Temp Pulse Resp BP Pulse Ox 98.3 F 76 16 118/66 98 02/24/18 08:46 02/24/18 08:46 02/24/18 08:46 02/24/18 08:46 02/24/18 08:46 Intake & Output 02/23/18 02/24/18 02/25/18 06:59 06:59 06:59 Intake Total 1000 1613 Balance 1000 1613 Weight 92.2 kg - Abdomen Description: Soft Hernia Present: No Fundal Description: Midline Fundal Height: u/u - u/2 - Abdominal Distension: No distension Tenderness: Nontender - Extremities Lower extremities: Jemal's sign - neg Calf: Normal, Nontender Objective-Diagnostic Laboratory: 02/24/18 07:20 02/24/18 07:20 WBC 13.9 H RBC 3.79 Hgb 10.7 L Hct 31.3 L MCV 83 MCH 28.1 MCHC 34.1 RDW 18.9 H Plt Count 165 Assessment and Plan(PN) - Assessment and Plan (1) Vaginal delivery Is this a current diagnosis for this admission?: Yes - Time Spent with Patient Time with patient: Less than 15 minutes Medications reviewed and adjusted accordingly: Yes - Disposition Anticipated Discharge: Home Within: within 24 hours
[2018-02-24] MEDS: ACETAMINOPHEN WITH CODEINE #3 TABLET PO PRN (21:22)
[2018-02-25] MEDS: IBUPROFEN 800 MG TABLET PO SCH (05:48)
[2018-02-25 08:59] VITALS: BP 129/88
--- NOTE | 2018-02-25 09:05 | PDOC PROGRESS REPORT ---
Subjective-OB Progress Note for:: 02/25/18 Subjective: Ready to go home. Physical Exam (OB) Vital Signs: Temp Pulse Resp BP Pulse Ox 98.1 F 56 L 16 129/88 H 98 02/25/18 08:14 02/25/18 08:14 02/25/18 08:14 02/25/18 08:14 02/25/18 08:14 Intake & Output 02/24/18 02/25/18 02/26/18 06:59 06:59 06:59 Intake Total 1613 480 Balance 1613 480 - PIH/Pre-Eclampsia Clonus: Negative Headache: Absent Epigastric Pain: No Visual Changes: No - Lochia Lochia Amount: Scant < 10 ml Lochia Color: Rubra/Red - Abdomen Description: Soft, Round Hernia Present: No Bowel Sounds: Normoactive Flatus Presence: Present Stool: No Fundal Description: Firm Fundal Height: u/u - u/2 Objective-Diagnostic Laboratory: 02/24/18 07:20 Assessment and Plan(PN) - Time Spent with Patient Medications reviewed and adjusted accordingly: Yes - Disposition Anticipated Discharge: Home
--- NOTE | 2018-02-25 09:12 | PDOC DISCHARGE SUMMARY ---
Final Diagnosis Discharge Date: 02/25/18 - Final Diagnosis (1) Chronic hypertension Is this a current diagnosis for this admission?: Yes (2) Meconium in amniotic fluid Is this a current diagnosis for this admission?: Yes (3) Vaginal delivery Is this a current diagnosis for this admission?: Yes Discharge Data - Discharge Medication Prescriptions: Docusate Sodium [Colace 100 mg Capsule] 100 mg PO BID #30 capsule Home Medications: Sertraline HCl [Zoloft 50 mg Tablet] 50 mg PO DAILY 04/16/17 Ergocalciferol (Vitamin D2) [Vitamin D] 400 unit PO DAILY 01/28/18 Iron,Carb/Vit C/Vit B12/Folic [Iron 100 Plus Tablet] 1 each PO BID 01/28/18 Vits96/Iron Fum/Folic [ Tablet] 1 each PO DAILY 01/28/18 Docusate Sodium [Colace 100 mg Capsule] 100 mg PO BID #30 capsule 02/25/18 Gestational Age: 37.0 wks Reason(s) for Admission: Induction of Labor, PIH Procedures: Ultrasound Intrapartum Procedure(s): Spontaneous Vaginal Delivery - Data Baby 1 Male at 1 minute: 8 at 5 minutes: 9 Weight: 3.26 kg Home with Mother: Yes Complications: No - Diagnosis Test Laboratory: Temp Pulse Resp BP Pulse Ox 98.1 F 56 L 16 129/88 H 98 02/25/18 08:14 02/25/18 08:14 02/25/18 08:14 02/25/18 08:14 02/25/18 08:14 02/22/18 02/22/18 02/24/18 19:56 20:30 07:20 RBC 4.26 3.79 Hgb 12.0 10.7 L Hct 35.0 L 31.3 L Urine Opiates Screen NEGATIVE - Discharge information/Instructions Discharge Activity: Activity As Tolerated, Balance Activity w/Rest, Pelvic Rest , Slowly Increase Activity, No tub bath Discharge Diet: Regular Disposition: HOME, SELF-CARE Follow up with: [facility] in: 1, Weeks
[2018-02-25] MEDS: DOCUSATE SODIUM 100 MG CAPSULE PO SCH (09:20)
[2018-02-25] MEDS: FERROUS SULFATE 325 MG TABLET PO SCH (09:20)
[2018-02-25] MEDS: PRENATAL VITAMIN W DHA CAPSULE PO SCH (09:20)
[2018-02-25] MEDS: SENNOSIDES/DOCUSATE 8.6-50 MG 1 EACH TABLET PO SCH (09:20)
--- NOTE | 2018-03-03 09:49 | Delivery Summary ---
Del Sum A-C Datetime Report Generated by CPN: 03/03/2018 09:49 DELIVERY PERSONNEL DELIVERY PERSONNEL: [id number] Delivery Doctor:: Tara Eller CNM Labor and Delivery Nurse:: Yessica Syeks RN Nursery Nurse:: Minnie Washburn RN Hand Woodworking Sander/MANAGER OF MARKETING: Merry Cotto, MANAGER OF MARKETING II MATERNAL INFORMATION Delivery Anesthesia: Epidural Medications After Delivery: Pitocin Bolus-Please Comment; Pitocin Drip 20 Units/1000ml NSS Meds After Delivery Comment: Pitocin 20 units in 1 L NS bolusing per order Maternal Complications: None Provider Comments: Pt. progressed to c/c/+1 with urge to push, begin pushing and quickly delivered a viable baby boy in HERMINIA presentation. Head delivered thru loose nuchal x1 baby then restituted to OP presentation then rest of body delivered without difficulty. Baby placed on maternal abdomen, terminal meconium noted, spontaneous respiratory effort and cry at delivery, cord allowed to stop pulsating then clamped x2 and cut by FOB (3vc noted, cord blood collected). Placenta delivered spontaneously intact in carrera presentation and sent to lab for culture and evaluation. Vaginal and perineal inspection revealed no lacerations. Funuds firm at u-1, scant bleeding. Mother and baby remain skin to skin and bonding at this time. Nursery nurse in room for delivery. LABOR SUMMARY EDC: 03/16/2018 00:00 No. Babies in Womb: 1 Attempted: No Labor Anesthesia: IV Sedation LABOR INFORMATION Reason for Induction: Gestational Hypertension Reason for Induction- Other: history of demise Onset of Labor: 02/23/2018 04:17 Complete Dilatation: 02/23/2018 13:50 Oxytocin: Induction Group B Beta Strep: Negative Antibiotics # of Doses: 0 Antibiotics Time of Last Dose: N/A Name of Antibiotic Given: N/A Steroids Given: None Reason Steroids Not Administered: Not Applicable MEMBRANES Membranes Rupture Method: Artificial Rupture of Membranes: 02/23/2018 04:17 Length of Rupture (hr): 9.97 Amniotic Fluid Color: Moderate Meconium Amniotic Fluid Amount: Moderate Amniotic Fluid Odor: Normal STAGES OF LABOR Stage 1 hr: 9 Stage 1 min: 33 Stage 2 hr: 0 Stage 2 min: 25 Stage 3 hr: 0 Stage 3 min: 8 Total Time in Labor hr: 10 Total Time in Labor min: 6 VAGINAL DELIVERY Episiotomy: None Laceration #1: None Laceration Extension #1: N/A Laceration Repair: Not Applicable Sponge Count Correct: N/A Sharps Count Correct: N/A CSECTION DELIVERY Primary Indication: N/A Secondary Indication: N/A CSection Incidence: N/A Labor: N/A Elective: N/A CSection Incision: N/A BABY A INFORMATION Infant Delivery Date/Time: 02/23/2018 14:15 Method of Delivery: Vaginal Born in Route : No : N/A Forceps: N/A Vacuum Extraction: N/A Shoulder Dystocia : No PRESENTATION/POSITION BABY A Presentation: Cephalic Cephalic Presentation: Vertex Vertex Position: OP Breech Presentation: N/A PLACENTA INFORMATION BABY A Placenta Delivery Time : 02/23/2018 14:23 Placenta Method of Delivery: Spontaneous Placenta Status: Delivered SCORES BABY A Heart Rate 1 min: >100 bpm Resp Effort 1 min: Slow, Irregular Reflex Irritability 1 min: Cough or Sneeze or Pulls Away Muscle Tone 1 min: Active Motion Color 1 min: Body [place], Extremities Blue Resuscitation Effort 1 min: N/A SCORE 1 MIN: 8 Heart Rate 5 min: >100 bpm Resp Effort 5 min: Good Cry Reflex Irritability 5 min: Cough or Sneeze or Pulls Away Muscle Tone 5 min: Active Motion Color 5 min: Body [place], Extremities Blue Resuscitation Effort 5 min: N/A SCORE 5 MIN: 9 INFORMATION BABY A Gestational Age at Delivery: 37.0 Gestational Status: Early Term- 37- 38.6 Weeks Infant Outcome : Liveborn Infant Condition : Stable Sex: Male IDENTIFICATION BABY A Infant Verification Date/Time: 02/23/2018 15:37 ID Band Number: [id number] Mother's Name Verified: Yes RN Verifying Infant: Vaishnavi Sykes, RN, JSunni Field, RN WEIGHT/LENGTH BABY A Birthweight (gm): 3254 Weight (lb): 7 Infant Weight (oz): 3 Infant Length (in): 20.00 Infant Length (cm): 50.80 CORD INFORMATION BABY A No. Cord Vessels: 3 Nuchal Cord : Around Neck x1, Loose Cord Blood Taken: Yes-For Storage (Mom's Blood type +) Infant Suction: None ASSESSMENT BABY A Infant Complications: Multiple Late Decels; Multiple Variable Decels Physical Findings at Delivery: Molding of the Head; Puncture Wound from Scalp Electrode Respirations: Appears Normal Skin to Skin: Yes Skin to Skin: Yes Skin to Skin Time (min): 60 Grey Goods Marker/ALS Called : No Care By: Adriana Washburn RN Transferred To: Remains with Mother BABY B INFORMATION : N/A SIGNATURES Assignment: French oDmínguez MD Signature: with User ID: Herbert : with User ID: [email or web address]
== END 2018-02-25 13:47 | disposition home or self-care (01) | DRG 807 ==
LOC: LR 19:48 → 2N 02-23 16:59
PROVIDERS: ADMIT Student in an Organized Health Care Education/Training Program; ATTEND Student in an Organized Health Care Education/Training Program
PROC: 10E0XZZ Delivery of Products of Conception, External Approach (ICD-10-PCS; principal; 2018-02-23)
DX: O11.4 Pre-existing hypertension with pre-eclampsia, complicating childbirth (principal); Z37.0 Single live birth; O69.81X0 Labor and delivery complicated by cord around neck, without compression, not applicable or unspecified; O76 Abnormality in fetal heart rate and rhythm complicating labor and delivery; O77.0 Labor and delivery complicated by meconium in amniotic fluid; O99.344 Other mental disorders complicating childbirth; F41.8 Other specified anxiety disorders; Z3A.36 36 weeks gestation of pregnancy
CPT/HCPCS: 36415; 80307; 81001; 85025; 85027; 86592; 86850; 86900; 86901; 87070; 87077; 87186; 87205; 88307; 94760; C1726; J2300; J2550; J2590; J3010; J3490

== ENCOUNTER → 2019-10-24 | Outpatient (CLI) | payer OTHER | LOC: OD 16:51 | PROVIDERS: ATTEND Student in an Organized Health Care Education/Training Program | DX: Z13.21 Encounter for screening for nutritional disorder (principal); O02.1 Missed abortion; Z3A.00 Weeks of gestation of pregnancy not specified | CPT/HCPCS: 36415; 82306; 84702 ==

== ENCOUNTER → 2020-03-05 | Outpatient (CLI) | payer OTHER ==
--- NOTE | 2020-03-05 15:42 | RADIOLOGY REPORT (SQ) ---
EXAM DESCRIPTION: HYSTERO CATH/INJECTION; HYSTEROSALPINGOGRAM IMAGES COMPLETED DATE/TIME: 03/05/2020 3:23 pm REASON FOR STUDY: FEMALE INFERTILITY, UNSPECIFIED N97.9 FEMALE INFERTILITY, UNSPECIFIED COMPARISON: None. PROCEDURE: PRE-PROCEDURE: Procedure was explained to the patient. She was told to expect cramping du ring the procedure, and possible spotting post procedure. PROCEDURE: The cervix was prepped in sterile fashion. Under direct visual inspection, the cervix was cannulated with the hysterosalpingogram catheter and contrast injected. TECHNIQUE: Temporal fluoroscopic images acquired during the procedure stored to PACS. FLUOROSCOPY TIME: 27 seconds. 15 images saved to PACS. LIMITATIONS: None. FINDINGS: UTERUS: No identified anomalies. No synechia. RIGHT ADNEXA: Normal size fallopian tube. Free spill of contrast into the peritoneal cavity. LEFT ADNEXA: Normal size fallopian tube. Free spill of contrast into the peritoneal cavity. POST PROCEDURE: The patient tolerated the procedure with no adverse effects. IMPRESSION: NORMAL HYSTEROSALPINGOGRAM. COMMENT: Study performed and interpreted by the radiologist. Quality ID 145: Final reports for procedures using fluoroscopy that document radiation exposure elana priscilla, or exposure time and number of fluorographic images (if radiation exposure indices are not avail able) TECHNICAL DOCUMENTATION: JOB ID: [id number] 2010 [employer]- All Rights Reserved Reading location - IP/workstation name: [email or web address]
--- NOTE | 2020-03-05 15:42 | RADIOLOGY REPORT (SQ) ---
EXAM DESCRIPTION: HYSTERO CATH/INJECTION; HYSTEROSALPINGOGRAM IMAGES COMPLETED DATE/TIME: 03/05/2020 3:23 pm REASON FOR STUDY: FEMALE INFERTILITY, UNSPECIFIED N97.9 FEMALE INFERTILITY, UNSPECIFIED COMPARISON: None. PROCEDURE: PRE-PROCEDURE: Procedure was explained to the patient. She was told to expect cramping du ring the procedure, and possible spotting post procedure. PROCEDURE: The cervix was prepped in sterile fashion. Under direct visual inspection, the cervix was cannulated with the hysterosalpingogram catheter and contrast injected. TECHNIQUE: Temporal fluoroscopic images acquired during the procedure stored to PACS. FLUOROSCOPY TIME: 27 seconds. 15 images saved to PACS. LIMITATIONS: None. FINDINGS: UTERUS: No identified anomalies. No synechia. RIGHT ADNEXA: Normal size fallopian tube. Free spill of contrast into the peritoneal cavity. LEFT ADNEXA: Normal size fallopian tube. Free spill of contrast into the peritoneal cavity. POST PROCEDURE: The patient tolerated the procedure with no adverse effects. IMPRESSION: NORMAL HYSTEROSALPINGOGRAM. COMMENT: Study performed and interpreted by the radiologist. Quality ID 145: Final reports for procedures using fluoroscopy that document radiation exposure elaan priscilla, or exposure time and number of fluorographic images (if radiation exposure indices are not avail able) TECHNICAL DOCUMENTATION: JOB ID: [id number] 2010 [employer]- All Rights Reserved Reading location - IP/workstation name: [email or web address]
== END ==
LOC: RAD 14:28
PROVIDERS: ATTEND Student in an Organized Health Care Education/Training Program
DX: N96 Recurrent pregnancy loss (principal)
CPT/HCPCS: 58340; 74740